=== PATIENT | female | born 1995 | race Caucasian/White ===

== ENCOUNTER → 2016-10-18 | Outpatient (CLI) | payer BC, OTHER ==
[~2016-10-18] MED LIST: PRENTAB44
[2016-10-18 17:31] LABS: URINE APPEARANCE CLOUDY (CLEAR); URINE BILIRUBIN NEG (NEG); URINE COLOR YELLOW; URINE EPITHELIAL CELL AUTO >30 /lpf (0-5); URINE NITRITE NEG (NEG); URINE SPECIFIC GRAVITY 1.022 (1.000-1.030); UROBILINOGEN NEG (NEG)
[2016-10-18 17:37] LABS: MANUAL MICROSCOPIC REQUIRED? NO; REVIEW REQ? NO
== END | disposition home or self-care (01) ==
LOC: C.LABSPEC 15:23
PROVIDERS: ATTEND Obstetrics & Gynecology
DX: O99.330 Smoking (tobacco) complicating pregnancy, unspecified trimester (principal); Z3A.00 Weeks of gestation of pregnancy not specified

== ENCOUNTER → 2016-10-21 | Outpatient (CLI) | payer BC, OTHER ==
[2016-10-21 10:41] LABS: BASO % 0.3 %; BASO ABS # 0.02 K/uL (0-0.2); COMPLETE YES; EOS % 2.3 %; HEMATOCRIT 37.9 % (37-47); IG% 0.3 %; LYMPH % 20.4 %; LYMPH ABS # 1.57 K/uL (1.2-3.4); MEAN CELL VOLUME 85.9 fL (80-100); MEAN CORPUSCULAR HGB CONC 33.8 g/dl (32-36); MEAN PLATELET VOLUME 10.8 fL (7.4-10.4); MONO % 11.2 %; NEUT % 65.5 %; PLATELET COUNT 264 K/uL (130-400); RED BLOOD COUNT 4.41 M/uL (4.2-5.4); WHITE BLOOD COUNT 7.69 K/uL (4.8-10.8)
[2016-10-25 07:06] LABS: CHLAMYDIA TRACH RNA*** NOT DETECTED (NOT DETECTED); GC (NEIS GONORRHOEAE)RNA** NOT DETECTED (NOT DETECTED)
== END | disposition home or self-care (01) ==
LOC: C.LAB1850 09:51
PROVIDERS: ATTEND Obstetrics & Gynecology
DX: Z33.1 Pregnant state, incidental (principal)

== ENCOUNTER → 2016-10-21 | Outpatient (CLI) | payer BC, OTHER | END | disposition home or self-care (01) | LOC: C.PAPS 14:12 | PROVIDERS: ATTEND Obstetrics & Gynecology | DX: Z12.4 Encounter for screening for malignant neoplasm of cervix (principal) ==

== ENCOUNTER → 2016-12-25 | Outpatient (CLI) | payer BC, OTHER ==
[2016-12-25 19:00] LABS: GTGD 50 Grams
== END | disposition home or self-care (01) ==
LOC: C.LAB1850 15:24
PROVIDERS: ATTEND Obstetrics & Gynecology
DX: Z34.02 Encounter for supervision of normal first pregnancy, second trimester (principal)

== ENCOUNTER 2016-12-29 19:10 | Emergency (ER) | payer BC, OTHER ==
[~2016-12-29] VITALS: Ht 162.6 cm; Wt 84.5 kg
[2016-12-29 19:23] VITALS: TEMP 36.9; Ht 162.6 cm; Wt 84.5 kg
[2016-12-29] MEDS ORDERED: SODIUM CHLORIDE 0.9% 1000ML 1,000 ML IV STA (19:54)
[2016-12-29 20:17] LABS: BASO % 0.1 %; BASO ABS # 0.01 K/uL (0-0.2); COMPLETE YES; EOS % 1.4 %; HEMATOCRIT 32.3 % (37-47); IG% 0.2 %; LYMPH % 15.3 %; LYMPH ABS # 1.89 K/uL (1.2-3.4); MEAN CELL VOLUME 85.4 fL (80-100); MEAN CORPUSCULAR HEMOGLOBIN 28.8 pg (25-34); MEAN CORPUSCULAR HGB CONC 33.7 g/dl (32-36); MEAN PLATELET VOLUME 10.5 fL (7.4-10.4); MONO % 8.7 %; NEUT % 74.3 %; PLATELET COUNT 236 K/uL (130-400); RED BLOOD COUNT 3.78 M/uL (4.2-5.4); WHITE BLOOD COUNT 12.33 K/uL (4.8-10.8)
[2016-12-29] MEDS ORDERED: PRENTAB44 (20:21)
[2016-12-29 20:40] LABS: BUN/CREATININE RATIO 9.5 (10-20); CALCIUM 9.7 mg/dl (8.5-10.1); CREATININE 0.64 mg/dl (0.60-1.20); POTASSIUM 3.3 mmol/L (3.5-5.1)
--- NOTE | 2016-12-29 21:20 | DIAGNOSTIC IMAGING REPORT ---
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 Estimated gestational age is 16.5 weeks. Maternal cervix is closed. Placenta is anterior. heart rate is confirmed at 142 bpm. IMPRESSION: Single, viable intrauterine estimated at 16.5 weeks gestational age. A heartbeat is confirmed The above report was generated using voice recognition software. It may contain grammatical, syntax or spelling errors. Electronically signed by: Markos Matthews M.D. 12/29/2016 9:19 PM Dictated Date/Time: 12/29/2016 9:18 PM
--- NOTE | 2016-12-29 21:51 | EMERGENCY ROOM VISIT NOTE ---
History Report prepared by Pietroibe: Jimena Reddy Under the Supervision of: Dr. Ahmet Ortega D.O. First contact with patient: 19:51 Chief Complaint: ABDOMINAL PAIN Stated Complaint: SEVERE CRAMPING- 16WKS Nursing Triage Summary: Patient reports she is 16 weeks and developed abdominal cramping. Denies bleeding. History of Present Illness The patient is a 21 year old female who presents to the Emergency Room with complaints of persistent abdominal pain that started earlier today. She describes her pain as feeling "crampy" in nature and rates it as a 5/10 in severity. She is currently 16 weeks with her second . Her first ended in an . The patient admits she experienced spotting with her previous , but denies any recent spotting or bleeding with this . She currently takes vitamins but no other daily medications. She denies any recent fevers or illnesses. Source of History: patient Onset: earlier today Position: abdomen Symptom Intensity: 5/10 Quality: cramping Timing: other (persistent) Associated Symptoms: No fevers Review of Systems See HPI for pertinent positives & negatives. A total of 10 systems reviewed and were otherwise negative. Past Medical & Surgical Surgical Problems: (1) in first trimester Social History Smoking Status: Never Smoker Alcohol Use: occasionally Drug Use: none Marital Status: single, in relationship Housing Status: lives with family Occupation Status: employed Current/Historical Medications Miscellaneous Medications Vit W/ Ferrous Fumara ( Complete) Allergies Uncoded Allergies: NO KNOWN ALLERGIES (Allergy, Unknown, ., 12/29/16) Physical Exam Vital Signs Date Time Temp Pulse Resp B/P (MAP) Pulse Ox O2 Delivery O2 Flow Rate FiO2 12/29/16 22:03 87 18 117/63 98 12/29/16 19:23 36.9 86 16 133/80 100 Room Air Physical Exam CONSTITUTIONAL/VITAL SIGNS: Reviewed / noted above. GENERAL: Non-toxic in appearance. INTEGUMENTARY: Warm, dry, and [place]. HEAD: Normocephalic. EYES: without scleral icterus or trauma. ENT/OROPHARYNX: clear and moist. LYMPHADENOPATHY/NECK: Is supple without lymphadenopathy or meningismus. RESPIRATORY: Lungs clear and equal. CARDIOVASCULAR: Regular rate and rhythm. GI/ABDOMEN: Soft and nontender. No organomegaly or pulsatile mass. No rebound or guarding. Normal bowel sounds. EXTREMITIES: Warm and well perfused. BACK: No CVA tenderness. NEUROLOGICAL: Intact without focal deficits. PSYCHIATRIC: normal affect. MUSCULOSKELETAL: Normally developed with good muscle tone. 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 Estimated gestational age is 16.5 weeks. Maternal cervix is closed. Placenta is anterior. heart rate is confirmed at 142 bpm. IMPRESSION: Single, viable intrauterine estimated at 16.5 weeks gestational age. A heartbeat is confirmed The above report was generated using voice recognition software. It may contain grammatical, syntax or spelling errors. Electronically signed by: Markos Matthews M.D. 12/29/2016 9:19 PM Laboratory Results 12/29/16 20:05 Red Blood Count 3.78, Mean Corpuscular Volume 85.4, Mean Corpuscular Hemoglobin 28.8, Mean Corpuscular Hemoglobin Concent 33.7, Mean Platelet Volume 10.5, Neutrophils (%) (Auto) 74.3, Lymphocytes (%) (Auto) 15.3, Monocytes (%) (Auto) 8.7, Eosinophils (%) (Auto) 1.4, Basophils (%) (Auto) 0.1, Neutrophils # (Auto) 9.16, Lymphocytes # (Auto) 1.89, Monocytes # (Auto) 1.07, Eosinophils # (Auto) 0.17, Basophils # (Auto) 0.01 12/29/16 20:05 Test 12/29/16 20:05 White Blood Count 12.33 K/uL (4.8-10.8) Red Blood Count 3.78 M/uL (4.2-5.4) Hemoglobin 10.9 g/dL (12.0-16.0) Hematocrit 32.3 % (37-47) Mean Corpuscular Volume 85.4 fL (80-100) Mean Corpuscular Hemoglobin 28.8 pg (25-34) Mean Corpuscular Hemoglobin Concent 33.7 g/dl (32-36) Platelet Count 236 K/uL (130-400) Mean Platelet Volume 10.5 fL (7.4-10.4) Neutrophils (%) (Auto) 74.3 % Lymphocytes (%) (Auto) 15.3 % Monocytes (%) (Auto) 8.7 % Eosinophils (%) (Auto) 1.4 % Basophils (%) (Auto) 0.1 % Neutrophils # (Auto) 9.16 K/uL (1.4-6.5) Lymphocytes # (Auto) 1.89 K/uL (1.2-3.4) Monocytes # (Auto) 1.07 K/uL (0.11-0.59) Eosinophils # (Auto) 0.17 K/uL (0-0.5) Basophils # (Auto) 0.01 K/uL (0-0.2) RDW Standard Deviation 40.2 fL (36.4-46.3) RDW Coefficient of Variation 12.9 % (11.5-14.5) Immature Granulocyte % (Auto) 0.2 % Immature Granulocyte # (Auto) 0.03 K/uL (0.00-0.02) Anion Gap 8.0 mmol/L (3-11) Est Creatinine Clear Calc Drug Dose 143.8 ml/min Estimated GFR () 145.8 Estimated GFR (Non- 125.8 BUN/Creatinine Ratio 9.5 (10-20) Calcium Level 9.7 mg/dl (8.5-10.1) Human Chorionic Gonadotropin, Quant 14247 mIU/mL Laboratory results as stated above per my review. Medications Administered Medications (Trade) Dose Ordered Sig/Hua Route Start Time Stop Time Status Last Admin Dose Admin Sodium Chloride 1,000 ml @ 999 mls/hr Q1H1M STAT IV 12/29/16 19:54 12/29/16 20:54 DC 12/29/16 19:54 999 MLS/HR ED Course 1950: Previous medical records were reviewed. The patient was evaluated in room C12. A complete history and physical examination was performed. 1953: NSS 1000 ml @ 999 mls/hr IV. 2199: I reevaluated the patient. She is feeling much better. I discussed her results and discharge instructions and she verbalized complete understanding and agreement. Medical Decision Etiologies such as ectopic , dysfunction uterine bleeding, bleeding dyscrasia, trauma, infection, as well as others were entertained. This is a 21-year-old female who presents to the ED with a chief complaint of abdominal cramps. The patient denies any spotting. She has had the cramps throughout the day today. She reports it's in the lower abdomen. She is a with history of an 2 years ago. The patient denies any other symptoms. Her physical exam was unremarkable. CBC and PRP are normal. Ultrasound reveals a single viable intrauterine at 16.5 weeks. The patient was told the results of tests. She is felt to be stable for discharge. Medication Reconcilliation Current Medication List: was personally reviewed by me Impression Primary Impression: Abdominal cramps Additional Impression: related condition in second trimester Scribe Attestation The scribe's documentation has been prepared under my direction and personally reviewed by me in its entirety. I confirm that the note above accurately reflects all work, treatment, procedures, and medical decision making performed by me. Departure Information Dispostion Home / Self-Care Referrals No Doctor, Assigned (PCP) Patient Instructions My [facility] Additional Instructions Follow-up with your TAX COMPLIANCE OFFICER. Call tomorrow for appointment. Return for any concerns or worsening. Problem Qualifiers
[2016-12-29 22:03] VITALS: BP 117/63; PULSE 87; O2SAT 98
== END 2016-12-29 22:00 | disposition home or self-care (01) ==
LOC: C.EDB 19:11 → C.EDC 22:00
DX: O26.92 Pregnancy related conditions, unspecified, second trimester (principal); R10.9 Unspecified abdominal pain

== ENCOUNTER → 2017-03-27 | Outpatient (CLI) | payer OTHER ==
[2017-03-27 13:21] LABS: GTGD 50 Grams
[2017-03-27 14:19] LABS: URINE APPEARANCE CLEAR (CLEAR); URINE BILIRUBIN NEG (NEG); URINE COLOR YELLOW; URINE EPITHELIAL CELL AUTO >30 /lpf (0-5); URINE NITRITE NEG (NEG); URINE SPECIFIC GRAVITY 1.008 (1.000-1.030); UROBILINOGEN NEG (NEG)
[2017-03-27 14:25] LABS: MANUAL MICROSCOPIC REQUIRED? NO; REVIEW REQ? NO
== END | disposition home or self-care (01) ==
LOC: C.LAB1850 12:06
PROVIDERS: ATTEND Obstetrics & Gynecology
DX: Z34.03 Encounter for supervision of normal first pregnancy, third trimester (principal)

== ENCOUNTER 2017-05-01 08:49 | Emergency (ER) | payer BC, OTHER ==
[~2017-05-01] VITALS: Ht 162.6 cm; Wt 91.9 kg
[2017-05-01 08:53] VITALS: TEMP 36.3; Ht 162.6 cm; Wt 91.9 kg
[2017-05-01] MEDS ORDERED: FAMO20TA9 PO (09:22)
[2017-05-01] MEDS ORDERED: AMX875 PO (09:22)
[2017-05-01 10:37] LABS: INFLUENZA B ANTIGEN Neg for Influ B (NEG)
--- NOTE | 2017-05-01 10:54 | EMERGENCY ROOM VISIT NOTE ---
ED Visit Note First contact with patient: 09:07 CHIEF COMPLAINT: Head congestion and dry cough HPI: This 21-year-old female who is 34 weeks presents the ER with chief complaint of head congestion for the past 5 days. She also admits to body aches which started Friday. She also admits to bilateral ear pain. She started with a dry cough 2 days ago. She denies any productive cough. The patient denies any fever. The patient was seen at urgent care on Friday and was placed on amoxicillin 875 mg twice daily. The patient states that her symptoms are unchanged since starting the amoxicillin. The patient does admit to having reflux with her . The patient denies any history of asthma. REVIEW OF SYSTEMS: 6 system review was performed and was negative unless stated otherwise in history of present illness. PMH: The patient is healthy; there is no significant medical or surgical history. SOCIAL HISTORY: Patient admits to tobacco use but denies any alcohol use. PHYSICAL EXAM: Vital Signs were reviewed: Reviewed Nurse's notes and agree. Oxygen saturation is 98 % on room air which is normal . GENERAL: 21-year-old female appears in no acute distress. MENTAL STATUS: Alert, oriented, coherent. EARS: Canals clear. TMs good light reflex, no erythema or fluid level noted. NOSE: Nasal mucosa with moderate erythema engorgement. PHARYNX: No erythema, no edema noted. No exudate noted. Airway is adequate. NECK: Supple, non-tender. No lymphadenopathy noted. LUNGS: Clear to auscultation without wheezes rales or rhonchi. CARDIAC: Regular rate and rhythm without murmur. SKIN: No rashes noted. EMERGENCY COURSE: The patient was evaluated. Rapid influenza was negative for influenza A and influenza B. DIAGNOSIS: Acute sinusitis DISCHARGE INSTRUCTIONS: Discontinue the amoxicillin. Take Augmentin as prescribed. You may also take Robitussin for cough if this is approved by your SEPTIC TANK SERVICE TECHNICIAN. Tylenol as needed for fever. Current/Historical Medications Scheduled Amoxicillin (Amoxicillin), 875 MG PO Q12 Famotidine (Pepcid), 20 MG PO BID Miscellaneous Medications Vit W/ Ferrous Fumara ( Complete) Allergies Coded Allergies: No Known Allergies (Unverified , 05/01/17) Vital Signs Date Time Temp Pulse Resp B/P (MAP) Pulse Ox O2 Delivery O2 Flow Rate FiO2 05/01/17 08:55 100 Room Air 05/01/17 08:53 36.3 85 20 132/86 98 Room Air Laboratory Results Test 05/01/17 09:45 Influenza Type A Antigen Neg for Influ A (NEG) Influenza Type B Antigen Neg for Influ B (NEG) Departure Information Referrals No Doctor, Assigned (PCP) Patient Instructions [facility]
[2017-05-01] MEDS ORDERED: AMOX875T PO (10:56)
[2017-05-01 11:02] VITALS: BP 147/94; PULSE 77; O2SAT 98
== END 2017-05-01 11:00 | disposition home or self-care (01) ==
LOC: C.EDB 08:50 → C.EDA 11:00
DX: J01.90 Acute sinusitis, unspecified (principal); Z3A.34 34 weeks gestation of pregnancy; F17.200 Nicotine dependence, unspecified, uncomplicated

== ENCOUNTER → 2017-05-15 | Outpatient (CLI) | payer BC, OTHER ==
[~2017-05-15] MED LIST changes: +AMX875 PO; +FAMO20TA9 PO
== END | disposition home or self-care (01) ==
LOC: C.LABSPEC 13:22
PROVIDERS: ATTEND Obstetrics & Gynecology
DX: Z34.02 Encounter for supervision of normal first pregnancy, second trimester (principal)

== ENCOUNTER 2017-06-05 12:15 | Inpatient (IN) | payer BC, OTHER ==
[~2017-06-05] VITALS: Ht 162.6 cm; Wt 97.8 kg
[2017-06-05 13:28] LABS: BASO % 0.1 %; BASO ABS # 0.01 K/uL (0-0.2); HEMATOCRIT 30.1 % (37-47); IG# 0.03 K/uL (0.00-0.02); LYMPH ABS # 1.23 K/uL (1.2-3.4); MEAN CELL VOLUME 80.3 fL (80-100); MEAN CORPUSCULAR HEMOGLOBIN 26.7 pg (25-34); MEAN PLATELET VOLUME 12.1 fL (7.4-10.4); MONO % 7.1 %; MONO ABS # 0.73 K/uL (0.11-0.59); NEUT % 78.5 %; NEUT ABS # 8.02 K/uL (1.4-6.5); NUCLEATED RED BLOOD CELL ABS 0.02 K/uL (0-0); PLATELET COUNT 160 K/uL (130-400); RED CELL DISTRIBUTION WIDTH CV 13.9 % (11.5-14.5); RED CELL DISTRIBUTION WIDTH SD 40.2 fL (36.4-46.3); WHITE BLOOD COUNT 10.22 K/uL (4.8-10.8)
[2017-06-05] MEDS ORDERED: LACTATED RINGER'S 1000ML 500 ML IV PRN (13:32)
[2017-06-05] MEDS ORDERED: LACTATED RINGER'S 1000ML 1,000 ML IV PRN (13:32)
[2017-06-05 13:37] LABS: INR 0.9 (0.9-1.1)
[2017-06-05] MEDS ORDERED: OXYTOCIN 30 UNITS/500ML NSS IV PRN (13:45)
[2017-06-05 13:46] LABS: ALBUMIN 2.4 gm/dl (3.4-5.0); ALT/SGPT 14 U/L (12-78); CREATININE 0.74 mg/dl (0.60-1.20); URIC ACID 5.5 mg/dl (2.6-7.2)
[2017-06-05 13:50] LABS: ALKALINE PHOSPHATASE 147 U/L (45-117); AST/SGOT 14 U/L (15-37); TOTAL PROTEIN 6.1 gm/dl (6.4-8.2)
[2017-06-05 14:01] LABS: MEAN CORPUSCULAR HGB CONC 33.2 g/dl (32-36)
[2017-06-05] MEDS ORDERED: DOCO1CAP10 (14:01)
[2017-06-05 14:50] VITALS: BMI 37.0
[2017-06-05] MEDS: LACTATED RINGER'S 1000ML 1,000 ML IV SCH ×2 (15:06→23:13)
[2017-06-05 15:14] VITALS: Ht 162.6 cm; Wt 97.8 kg
[2017-06-05] MEDS ORDERED: FAMOTIDINE 20 MG TAB PO ONE (16:14)
[2017-06-05] MEDS ORDERED: CALCIUM CARBONATE 500 MG CHEWABLE PO PRN (23:15)
[2017-06-05] MEDS ORDERED: NURSING VERBAL MED ORDER ONE (23:15)
[2017-06-06] MEDS ORDERED: BUTORPHANOL TARTRATE 1 MG/ML VIAL IV PRN (02:30)
[2017-06-06] MEDS ORDERED: BUPIVACAINE 0.25% 30 ML VIAL ONE (03:48)
[2017-06-06] MEDS ORDERED: FENTANYL CITRATE INJ 50 MCG/1 ML 2 ML VIAL ONE (03:48)
[2017-06-06] MEDS ORDERED: EpHEDrine SULFATE INJ 50 MG/ML AMP ONE (03:48)
[2017-06-06] MEDS ORDERED: FENTANYL 2MCG/ML ROPIV 1.25MG/ML 100ML BAG EPI ONE (03:49)
[2017-06-06] MEDS ORDERED: NALOXONE HCL INJ 1 MG in SODIUM CHLORIDE 0.9% 1000ML 1,000 ML IV PRN (06:31)
[2017-06-06] MEDS ORDERED: LACTATED RINGER'S 1000ML 500 ML IV PRN (06:31)
[2017-06-06] MEDS ORDERED: DiphenhydrAMINE HCL 50 MG/ML VIAL IV PRN (06:45)
[2017-06-06] MEDS ORDERED: FENTANYL 2MCG/ML ROPIV 1.25MG/ML 100ML BAG EPI PRN (06:45)
[2017-06-06] MEDS ORDERED: PROMETHAZINE HCL INJ 6.25 MG in SODIUM CHLORIDE 0.9% 50ML 50 ML IV PRN (06:45)
[2017-06-06] MEDS ORDERED: ONDANSETRON INJ 2 MG/ML 2 ML VIAL IV PRN (06:45)
[2017-06-06] MEDS ORDERED: EpHEDrine SULFATE INJ 50 MG/ML AMP IV PRN (06:45)
[2017-06-06] MEDS ORDERED: NALOXONE HCL INJ 0.4 MG/1 ML VIAL/CARP IV PRN (06:45)
[2017-06-06] MEDS ORDERED: NALBUPHINE HCL INJ 10 MG/ML AMP IV PRN (06:45)
[2017-06-06] MEDS ORDERED: FAMOTIDINE 20 MG TAB PO SCH (08:00)
[2017-06-06] MEDS ORDERED: HYDROCORTISONE ACETATE 25 MG SUPP PR PRN (09:00)
[2017-06-06] MEDS ORDERED: OXYTOCIN 30 UNITS/500ML NSS IV PRN (09:00)
[2017-06-06] MEDS ORDERED: ACETAMINOPHEN/CODEINE 300/30MG TAB PO PRN (09:00)
[2017-06-06] MEDS ORDERED: FAMOTIDINE 20 MG TAB PO PRN (09:00)
[2017-06-06] MEDS ORDERED: ACETAMINOPHEN 325 MG TAB PO PRN (09:00)
[2017-06-06] MEDS ORDERED: LANOLIN OINT EXT PRN (09:00)
[2017-06-06] MEDS ORDERED: BENZOCAINE 20% AER SPR 82.5 GM CAN EXT PRN (09:00)
[2017-06-06] MEDS ORDERED: DIPHTHERIA/TETANUS/PERTUSSIS 0.5 ML SYR/VIAL IM. ONE (09:00)
[2017-06-06] MEDS ORDERED: SUPERCREAM 0.870 % 15GM JAR EXT PRN (09:00)
--- NOTE | 2017-06-06 09:43 | Medical Student: [facility] ---
Medical Student Delivery Note Viable female infant delivered via normal spontaneous vaginal delivery over midline second degree perineum laceration, initial apgars 8 + 9, with epidural anesthesia. Nuchal cord x1 clamped and cut over perineum. Cord blood collected. Spontaneous delivery of placenta with 3-vessel cord. Estimated blood loss 300mL. Patient and infant are stable and doing well. Labor progression 21yo 39 (+3) DANIELLA 06/10 by US presented to hospital on 06/05 for labor induction. Huitron catheter ballooning was utilized for dilation in addition to IV Pitocin. Patient remained in hospital overnight. Anesthesia consulted for placement of epidural. Active pushing for approximately 30min. Medical provider took over care at this point. over midline second degree perineal laceration to viable female .Cord blood collected. Spontaneous delivery of placenta.Laceration repaired with 4-0 monochrome sutures. Estimated blood loss of 300mL
--- NOTE | 2017-06-06 09:49 | DELIVERY SUMMARY ---
DATE OF OPERATION: 06/06/2017 The patient is a 21-year-old 2, para 0-0-1-0 white female EDC of 06/10/2017 who presented for her usual visit at the office on 06/05/2017. Blood pressure was noted to be 140/100. Her prior visit, her blood pressure was 130/90 and therefore, she met criteria for gestational hypertension. Proteinuria was negative. She was sent to labor and delivery for further evaluation and potential induction of labor. Her PIH labs were within normal limits with a platelet count of 160,000. She received a cervical balloon and then Pitocin augmentation of labor. She received adequate epidural analgesia and progressed to full dilation. She pushed effectively for approximately 20 minutes over an intact perineum for delivery of a viable female infant. There was a tight nuchal cord on delivery. This was clamped and cut prior delivering the rest of the infant, which was done easily. was placed on the mother's abdomen for further attention and there was spontaneous crying and the infant was moving all 4 limbs. The placenta was expressed intact with a 3-vessel cord. A second degree perineal laceration was repaired with 3-0 chromic in the usual fashion. Estimated blood loss was 300 mL. Mother and infant were doing well after delivery. I attest to the content of the Intraoperative Record and any orders documented therein. Any exceptions are noted below. SEGUNDOD
--- NOTE | 2017-06-06 10:05 | Discharge Instructions ---
Discharge Instructions Date of Service Jun 06, 2017. Admission Reason for Admission: R/O Labor Discharge Discharge Diagnosis / Problem: Vaginal Delivery Discharge Goals Goal(s): Routine recovery after delivery Medications Continue Dispensed Medications: supercream, dermaplast, tucks, lansinoh Activity Recommendations Activity Limitations: per Instructions/Follow-up section . Instructions / Follow-Up Instructions / Follow-Up ACTIVITY RECOMMENDATIONS: * Gradual return to full activity over the next 2-3 weeks. * No lifting - nothing heavier than baby over the next 2-3 weeks. * Do not engage in vigorous exercise, sexual activity or sports until cleared by your physician. * Do not drive or operate any motorized equipment until cleared by your physician. * You may shower/bathe daily. MEDICATIONS: For discomfort or pain, you may use Acetaminophen (Tylenol), Ibuprofen (Advil), or Naproxen (Aleve) following the package directions. For constipation you may use Colace following the package directions. BREAST CARE: If you are not breast feeding: * Wear a supportive bra 24 hours a day for one to two weeks. * Avoid stimulating your breasts and nipples as much as possible during the first few weeks after delivery. * When taking a shower, have the warm water hit your back, not breasts. * When your breasts feel full, apply ice packs. Usually three to four times a day helps ease the discomfort. * Take a mild pain medication (Tylenol / Motrin) when you are uncomfortable. If breast feeding: * Use breast milk to lubricate nipples. Lansinoh cream may be used for sore nipples. You do not need to remove cream prior to breast feeding. If using a different brand of cream, check the label for directions regarding removal of cream prior to nursing. * Wear a supportive bra. * If having problems with breasts or breast feeding, call a exchange underwriting consultant or your health care provider. EPISIOTOMY CARE: After delivery, if you have an episiotomy (stitches), the following steps will ease discomfort and aid healing. * For the first 24 hours after delivery, place ice packs next to your episiotomy to help reduce swelling. * After the first 24 hour-period, sitz baths, either portable or in the tub, are suggested. A shower with a shower arm sprayed over the episiotomy may be comforting. * Cesilia care should be done after each voiding and bowel movement. Squirt warm water from a plastic bottle over the perineum (region of the body between the anus and urinary opening) and pat dry. * Use Dermoplast to ease discomfort. Shake container. Temperance directly over the episiotomy. Place a Tucks on a clean sanitary pad next to your episiotomy. SPECIAL CARE INSTRUCTIONS: When you are discharged from the hospital, it is important for you to follow the instructions listed below: * During the first week at home, you should be able to care for yourself and your baby. In addition, the usual light household activities are encouraged. * Limit your activities to the way you feel. Do not try to clean the house or move furniture. Be sensible. * If you actively engage in sports and have done so up until the time of your delivery, you may resume these activities as soon as you feel able. This may take up to one month or even longer. Use good judgment. * Continue to take your vitamins for at least six weeks after the of your baby. * Your diet need not be limited unless you were on a special diet before your delivery. Breast-feeding mothers need around 2500 calories per day and at least 64-80 ounces of fluid per day (8 to 10 glasses). * You should eat foods from the four major food groups. Crash diets or fad diets are to be avoided. Eating lean meats, fresh fruits and vegetables, low-fat dairy products, high fiber foods and a regular exercise program, will help you get back to your pre- weight without putting your health at risk. * Constipation is sometimes a problem after delivery. Take a mild laxative as needed. If breast feeding, Milk of Magnesia is acceptable to use. You may use a suppository or Fleets enema if no episiotomy. * A daily shower or tub bath is suggested. Be sure to thoroughly and gently dry the perineum. * A bloody vaginal discharge will usually continue until around four weeks post . A small amount of bleeding may continue for as long as six weeks. Vaginal discharge changes from the bright red bleeding after delivery to pink then brownish and finally yellowish-pink before becoming white and disappearing. * Bleeding may increase with activity. Your first period may come in 4-8 weeks. If you are breast feeding, your period may be delayed even longer. * [place] (sex) can begin whenever both you and your partner feel comfortable and do not have any form of genital infection. It is recommended that you wait at least six weeks for internal and external healing to occur. If you have questions, please talk to your health care practitioner. A condom should be used to prevent infection and . * Foreplay, gentle intercourse and lubrication is very important the first several times to prevent pain. A water-based lubricant such as K-Y jelly or Astroglide may be used. * If you have RH negative blood and your baby is RH positive, you will receive RHOGAM by injection prior to discharge. The nurse will give you a card to keep with you that has the date and place that you received RHOGAM after delivery. * During your care, you had a Rubella screen done to check for the presence of rubella antibodies in your blood. If your test was negative, you will receive a Rubella vaccine prior to discharge. This vaccine may cause a fever, soreness at the injection site and flu-like symptoms. If these symptoms persist, notify your health care practitioner. is not advised for one month after a Rubella vaccine. * Verbalizes understanding of car seat law as reviewed with patient nursing. * Car Seat hand-out given and reviewed with patient by nursing. * Shaken baby information reviewed with patient by nursing. Call you doctor if: * Heavy bleeding (saturating several pads an hour) or passing clots the size of your fist. * A fever >101 degrees F (38.3 degrees C) on two occasions four hours apart and /or chills. * Unusual pain in the pelvic or vaginal areas. * "Baby Blues" lasting longer than two weeks. If you have any questions or concerns, call your health care practitioner at . FOLLOW UP VISIT: * Please call the office at to schedule a 6 week examination. It is important you keep this appointment. It is important for you to make arrangements for either yearly or twice yearly check-ups thereafter. Current Hospital Diet Patient's current hospital diet: Regular OB Diet Discharge Diet Recommended Diet: Regular Diet Pending Studies Studies pending at discharge: no Medical Emergencies . Who to Call and When: Medical Emergencies: If at any time you feel your situation is an emergency, please call [phone] immediately. . Non-Emergent Contact Non-Emergency issues call your: Primary Care Provider . . "Provider Documentation" section prepared by Sarah Pike. . VTE Core Measure Inpt VTE Proph given/why not?: Treatment not indicated
--- NOTE | 2017-06-06 10:43 | Anesthesia Procedure Note ---
Anesthesia Epidural Removal Nt Date & Time Jun 06, 2017 at 10:43 Vital Signs Pain Intensity: 0.0 Notes Mental Status: alert / awake / arousable, participated in evaluation Nausea / Vomiting: adequately controlled Pain: adequately controlled Airway Patency, RR, SpO2: stable & adequate BP & HR: stable & adequate Hydration State: stable & adequate Neuraxial Anesthesia: was administered, sensory block is resolving Anesthetic Complications: no major complications apparent, pt satisfied with anesthetic care Epidural: removed without complications, with tip intact
[2017-06-06] MEDS: IBUPROFEN 600 MG TAB PO PRN ×2 (12:16→16:14)
[2017-06-06 12:35] VITALS: BP 155/106; PULSE 81; TEMP 37.1
[2017-06-06 14:15] VITALS: BP 155/96
[2017-06-06 15:30] VITALS: BP 145/98; PULSE 79; TEMP 36.8
[2017-06-06] MEDS: ACETAMINOPHEN/CODEINE 300/30MG TAB PO PRN (18:29)
[2017-06-06 19:25] VITALS: BP 155/95; PULSE 82; TEMP 36.6
[2017-06-06] MEDS: DOCUSATE SODIUM 100 MG CAP PO SCH (20:20)
[2017-06-06 20:45] VITALS: BP 155/105
[2017-06-06 23:30] VITALS: BP 136/88; PULSE 87; TEMP 36.6; O2SAT 100
[2017-06-07] VITALS (11 sets, daily range): BP systolic 145–163; BP diastolic 92–110; PULSE 69–115; TEMP 36.6–37; O2SAT 99–100
[2017-06-07] MEDS: ACETAMINOPHEN/CODEINE 300/30MG TAB PO PRN (01:41)
--- NOTE | 2017-06-07 06:20 | Progress Note ---
Subjective Jun 07, 2017. Subjective conversation w/ patient Ambulation: ambulating normally Voiding: no voiding problems Diet Tolerance: Regular Diet Lochia: Moderate Feeding Type: Bottle Feeding Pain: 3/10, improves with analgesia Review of Systems Constitutional: No fever, No chills Respiratory: No shortness of breath Cardiac: No chest pain Abdomen: No nausea, No vomiting Objective Vital Signs Date Time Temp Pulse Resp B/P (MAP) Pulse Ox O2 Delivery O2 Flow Rate FiO2 06/07/17 03:10 36.9 89 18 145/92 (109) 99 Room Air 06/06/17 23:30 36.6 87 18 136/88 (104) 100 Room Air 06/06/17 23:30 100 Room Air 06/06/17 20:45 155/105 (122) 06/06/17 19:25 Room Air 06/06/17 19:25 36.6 82 18 155/95 (115) Room Air 06/06/17 15:30 36.8 79 20 145/98 (114) Room Air 06/06/17 15:30 Room Air 06/06/17 14:15 155/96 (115) 06/06/17 12:35 37.1 81 20 155/106 (122) Physical Exam General Appearance: WELL-APPEARING, WD/WN, NO APPARENT DISTRESS Respiratory/Chest: lungs clear, normal breath sounds Cardiovascular: regular rate, rhythm Abdomen: soft Fundus: Firm, Non-Tender, Relation to Umbilicus (at u) Extremities: no calf tenderness Laboratory Results Last 24 Hours Test 06/07/17 04:44 Medications Current Inpatient Medications Medications (Trade) Dose Ordered Sig/Hua Route Start Time Stop Time Status Last Admin Dose Admin Oxytocin (Pitocin IV) 30 units UD PRN IV 06/06/17 09:00 07/06/17 08:59 Benzocaine (Dermoplast Aero Spr) 1 appln PRN PRN EXT 06/06/17 09:00 07/06/17 08:59 06/06/17 15:34 82.5 APPLN Cocaine HCl (Supercream 0.870% Cr) BID PRN EXT 06/06/17 09:00 06/20/17 08:59 Hydrocortisone Acetate (Anusol Hc Supp) 25 mg BID PRN CA 06/06/17 09:00 07/06/17 08:59 Lanolin (Lanolin Oint) PRN PRN EXT 06/06/17 09:00 07/06/17 08:59 Prenat Multivit/ Morgan/Iron/Folic Ac ( Vitamin Tab) 1 tab DAILY PO 06/07/17 08:00 07/07/17 07:59 Ibuprofen (Motrin Tab) 600 mg Q4H PRN PO 06/06/17 09:00 07/06/17 08:59 06/06/17 16:14 600 MG Acetaminophen (Tylenol Tab) 650 mg Q6H PRN PO 06/06/17 09:00 07/06/17 08:59 Acetaminophen/ Codeine Phosphate (Tylenol w/ Codeine #3 Tab) 1 tab Q4H PRN PO 06/06/17 09:00 07/06/17 08:59 06/07/17 01:41 1 TAB Acetaminophen/ Codeine Phosphate (Tylenol w/ Codeine #3 Tab) 2 tab Q4H PRN PO 06/06/17 09:00 07/06/17 08:59 Bisacodyl (Dulcolax Tab) 5 mg 20 PO 06/07/17 20:00 06/07/17 20:01 Bisacodyl (Dulcolax Supp) 10 mg DAILY PRN CA 06/08/17 07:00 Docusate Sodium (coLACE CAP) 100 mg BID PO 06/06/17 20:00 07/06/17 19:59 06/06/17 20:20 100 MG Famotidine (Pepcid Tab) 10 mg DAILY PRN PO 06/06/17 09:00 07/06/17 08:59 06/07/17 00:10 10 MG Assessment and Plan Problem List Medical Problems: (1) Abdominal cramps Status: Acute (2) Acute sinusitis Status: Acute (3) related condition in second trimester Status: Acute Post- Day#: 1 Continue Routine Care: Resident Physician Supervision Note: I was present with Dr. Pike during the history and exam. I discussed the case with the resident and agree with the findings and plan as documented in the note. Any exceptions or clarifications are listed here: [None] Documented By: Lissett Jennings 21 year old s/p vaginal delivery w/induction due to new onset diagnosis of gestational hypertension - pt doing well clinically - A-, Rubella immune, GBS -ve - baby A+, rhogam shot needed prior to discharge - vitals reviewed - BP elevated at 145/92, remains asymptomatic, continue to monitor - continue to encourage ambulation and analgesia prn - Hgb 10 on arrival, will reassess level when labs available today Resident Tracking Resident Involvement: Resident Care Provided Care Provided: OB Delivery
[2017-06-07] MEDS: DOCUSATE SODIUM 100 MG CAP PO SCH ×2 (07:50→19:28)
[2017-06-07] MEDS: PRENATAL VITAMIN TAB PO SCH (07:50)
[2017-06-07 08:08] LABS: HEMATOCRIT 29.3 % (37-47); HEMOGLOBIN 9.6 g/dL (12.0-16.0)
[2017-06-07] MEDS ORDERED: NIFEdipine 10 MG CAP PO STA (08:41)
--- NOTE | 2017-06-07 08:48 | Progress Note ---
Progress Note Date of Service Jun 07, 2017. Progress Note Elevated BPs - 160s/100s. For continued gestational hypertension, will treat with nifedipine - start with 10mg, recheck BP 15 minutes. If no improvement, give 20mg. Recheck BP, if no improvement, give second dose 20mg. If still no improvement, will switch to labetalol.
[2017-06-07] MEDS: IBUPROFEN 600 MG TAB PO PRN ×3 (10:06→22:39)
[2017-06-07] MEDS ORDERED: BISACODYL 5 MG TABEC PO SCH (20:00)
[2017-06-07] MEDS ORDERED: NIFEdipine 30 MG CR TAB PO STA (23:51)
[2017-06-08] MEDS: IBUPROFEN 600 MG TAB PO PRN ×3 (03:06→11:55)
[2017-06-08 03:15] VITALS: BP 152/103
[2017-06-08] MEDS ORDERED: BISACODYL 10 MG SUPP PR PRN (07:00)
[2017-06-08] MEDS: PRENATAL VITAMIN TAB PO SCH (07:42)
[2017-06-08] MEDS: DOCUSATE SODIUM 100 MG CAP PO SCH (07:42)
[2017-06-08 08:00] VITALS: BP 147/99; PULSE 82; TEMP 36.7
[2017-06-08] MEDS ORDERED: NIFE30TA83 PO (08:07)
[2017-06-08] MEDS ORDERED: MISC-836 (08:07)
--- NOTE | 2017-06-08 09:43 | OB/GYN Progress Note ---
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 Subjective conversation w/ patient, physical exam Ambulation: ambulating normally Voiding: no voiding problems Passing Gas: Yes Diet Tolerance: Regular Diet Lochia: Moderate Feeding Type: Breast Feeding Pain: controlled Review of Systems Constitutional: No problem reported Respiratory: No problem reported Cardiac: No problem reported Breast: No problem reported Abdomen: No problem reported Female : No problem reported Objective Vital Signs Date Time Temp Pulse Resp B/P (MAP) Pulse Ox O2 Delivery O2 Flow Rate FiO2 06/08/17 08:00 36.7 82 20 147/99 (115) 06/08/17 03:15 152/103 (119) 06/07/17 23:30 Room Air 06/07/17 23:30 36.6 86 20 150/103 (119) 100 Room Air 06/07/17 19:20 81 149/94 (112) Room Air 06/07/17 15:15 Room Air 06/07/17 15:15 37.0 74 18 147/99 (115) Room Air 06/07/17 12:20 37.0 75 20 150/99 (116) 06/07/17 10:00 115 24 158/101 (120) Physical Exam General Appearance: WELL-APPEARING, NO APPARENT DISTRESS Respiratory/Chest: no respiratory distress Cardiovascular: regular rate, rhythm Abdomen: non tender, soft Fundus: Firm Extremities: normal inspection Assessment and Plan Post- Day Number: 2 Continue Routine Care: PPD#2, h/o gestational hypertension Doing well. Has had elevated BPs - 160/110s yesterday, rec'd 1 dose 10mg procardia (immediate-release). BPs remained 150s/100s - pt was given 1 dose procardia XL 30mg last night around midnight. Has been 140-150s/90s. Will check another BP this afternoon prior to discharge home. Patient would like to go home today. If BP ok, will discharge home with rx for procardia. Will need to followup in office this week for BP check. Will also need to establish with PCP for further management of BP. Breast pump rx given per pt request.
[2017-06-08 11:55] VITALS: BP 147/98; PULSE 81; TEMP 37.3
[2017-06-08 14:10] VITALS: BP_DIAS 98; PULSE 81; TEMP 37.3
== END 2017-06-08 14:15 | disposition home or self-care (01) | DRG 775 ==
LOC: C.OPB 12:15 → C.LD 12:16 → C.OPB 13:35 → C.LD 13:35 → C.OBG 06-06 12:03
PROVIDERS: ADMIT Obstetrics & Gynecology; ATTEND Obstetrics & Gynecology
PROC: 0KQM3ZZ Repair Perineum Muscle, Percutaneous Approach (ICD-10-PCS; principal; 2017-06-06)
PROC: 10E0XZZ Delivery of Products of Conception, External Approach (ICD-10-PCS; principal; 2017-06-06)
DX: O13.4 Gestational [pregnancy-induced] hypertension without significant proteinuria, complicating childbirth (principal); Z37.9 Outcome of delivery, unspecified; O70.1 Second degree perineal laceration during delivery; Z3A.39 39 weeks gestation of pregnancy

== ENCOUNTER → 2017-06-12 | Outpatient (CLI) | payer BC, OTHER ==
[~2017-06-12] MED LIST changes: -AMX875 PO; +DOCO1CAP10; +MISC-836; +NIFE30TA83 PO; -PRENTAB44; +PRENTAB44 PO
[2017-06-12 13:15] LABS: HEMATOCRIT 31.4 % (37-47); HEMOGLOBIN 10.2 g/dL (12.0-16.0); MEAN CELL VOLUME 81.8 fL (80-100); MEAN CORPUSCULAR HEMOGLOBIN 26.6 pg (25-34); MEAN CORPUSCULAR HGB CONC 32.5 g/dl (32-36); PLATELET COUNT 315 K/uL (130-400); RED CELL DISTRIBUTION WIDTH CV 14.1 % (11.5-14.5); RED CELL DISTRIBUTION WIDTH SD 42.2 fL (36.4-46.3); WHITE BLOOD COUNT 10.37 K/uL (4.8-10.8)
[2017-06-12 14:20] LABS: ALBUMIN 3.1 gm/dl (3.4-5.0); ALKALINE PHOSPHATASE 124 U/L (45-117); ALT/SGPT 31 U/L (12-78); AST/SGOT 21 U/L (15-37); TOTAL PROTEIN 7.3 gm/dl (6.4-8.2)
== END | disposition home or self-care (01) ==
LOC: C.LAB1850 11:50
PROVIDERS: ATTEND Obstetrics & Gynecology
DX: O13.3 Gestational [pregnancy-induced] hypertension without significant proteinuria, third trimester (principal); Z3A.00 Weeks of gestation of pregnancy not specified

== ENCOUNTER 2017-06-14 03:23 | Emergency (ER) | payer BC, OTHER ==
[~2017-06-14] VITALS: Ht 162.6 cm; Wt 86.3 kg
[2017-06-14 03:25] VITALS: Ht 162.6 cm; Wt 86.3 kg
[2017-06-14 04:03] LABS: BASO % 0.1 %; BASO ABS # 0.01 K/uL (0-0.2); EOS % 3.7 %; HEMATOCRIT 34.9 % (37-47); HEMOGLOBIN 11.5 g/dL (12.0-16.0); IG# 0.03 K/uL (0.00-0.02); LYMPH % 20.1 %; LYMPH ABS # 1.64 K/uL (1.2-3.4); MEAN CELL VOLUME 82.1 fL (80-100); MEAN CORPUSCULAR HEMOGLOBIN 27.1 pg (25-34); MEAN PLATELET VOLUME 10.5 fL (7.4-10.4); MONO % 7.1 %; MONO ABS # 0.58 K/uL (0.11-0.59); NEUT % 68.6 %; NEUT ABS # 5.59 K/uL (1.4-6.5); PLATELET COUNT 314 K/uL (130-400); RED CELL DISTRIBUTION WIDTH CV 13.8 % (11.5-14.5); RED CELL DISTRIBUTION WIDTH SD 41.4 fL (36.4-46.3); WHITE BLOOD COUNT 8.15 K/uL (4.8-10.8)
[2017-06-14] MEDS ORDERED: DICYCLOMINE HCL 20 MG TAB PO STA (04:10)
[2017-06-14] MEDS ORDERED: ACETAMINOPHEN 325 MG TAB PO STA (04:10)
--- NOTE | 2017-06-14 04:10 | EMERGENCY ROOM VISIT NOTE ---
History Report prepared by Aryan: Adrianna Lazaro Under the Supervision of: Dr. Radha Carrillo D.O. First contact with patient: 03:31 Chief Complaint: ED VAG BLEEDING Stated Complaint: PAIN,7 DAYS ,HYPERTENSION History of Present Illness The patient is a 21 year old female A1 who presents to the Emergency Room with complaints of worsening vaginal bleeding starting this evening. The patient states that she is 7 days post . She reports that two weeks prior to delivery she started having high blood pressure. She reports that she was induced a week later and had a vaginal delivery. She states that there were no complications with her or the baby. She reports that she was started on a medication for her hypertension and has weekly appointments to check on it. The patient states that she had some light bleeding after the , but notes that it is heavier today. She is unsure if this is related to the abdominal cramping she is having. She reports that she is having it mainly lower, but has some less severe cramping in her upper abdomen. The patient states that she came to the ED tonight because these cramps woke her up out of her sleep. She notes that they started in her back. The patient complains of feeling lightheaded and nauseous in the car on the way here. The patient notes that she has been taking Colace. She notes that she has a history of constipation, but reports that her last bowel movement was yesterday. She states that she is bottle feeding and denies any breast tenderness. She notes that she had a headache last night, but does not tonight. The patient notes that her leg swelling has gone down dramatically. The patient denies any urinary symptoms, passing any clots, fevers , chills, vision changes, chest pain, shortness of breath, and abnormal eating/ drinking. Source of History: patient Onset: this evening Position: other (vaginal) Quality: other (bleeding) Timing: worsening Associated Symptoms: + nausea, + abdominal pain, No fevers, No chills, No headache, No chest pain, No SOB, No urinary symptoms Note: The patient complains of lightheadedness. The patient denies any breast tenderness, passing any clots, vision changes, and abnormal eating/drinking. Review of Systems See HPI for pertinent positives & negatives. A total of 10 systems reviewed and were otherwise negative. Past Medical & Surgical Medical Problems: (1) Elevated blood pressure affecting in third trimester, antepartum (2) Encounter for supervision of normal intrauterine in primigravida, antepartum (3) HTN (hypertension) Surgical Problems: (1) in first trimester Family History Patient reports no known family medical history. Social History Smoking Status: Current Every Day Smoker Alcohol Use: occasionally Drug Use: none Marital Status: in relationship Housing Status: lives with family Occupation Status: employed Current/Historical Medications Scheduled Nifedipine Ext Rel (Procardia Xl Ext Rel), 30 MG PO DAILY Vit W/ Ferrous Fumara ( Complete), 1 TAB PO DAILY Scheduled PRN Famotidine (Pepcid), 10 MG PO DAILY PRN for Heartburn Miscellaneous Medications Docosahexaenoic Acid (Dha) Durable Medical Equipment Misc. Devices (Breast Pump), EA Allergies Coded Allergies: No Known Allergies (Unverified , 06/14/17) Physical Exam Vital Signs Date Time Temp Pulse Resp B/P (MAP) Pulse Ox O2 Delivery O2 Flow Rate FiO2 06/14/17 07:42 73 20 145/98 100 Room Air 06/14/17 06:31 86 18 143/96 97 Room Air 06/14/17 05:15 36.8 67 18 143/96 98 Room Air 06/14/17 03:25 36.5 84 18 148/93 99 Room Air Physical Exam GENERAL: alert, well appearing, well nourished, no distress, non-toxic EYE EXAM: normal conjunctiva, PERRL and EOM's grossly intact OROPHARYNX: no exudate, no erythema, lips, buccal mucosa, and tongue normal and mucous membranes are moist NECK: supple, no nuchal rigidity, no adenopathy, non-tender LUNGS: Clear to auscultation. Normal chest wall mechanics HEART: no murmurs, S1 normal and S2 normal ABDOMEN: abdomen soft, mild generalized abdominal discomfort, worse in the lower abdomen, normo-active bowel sounds, no masses, no rebound or guarding. PELVIC: Blood noted in vaginal vault. No clots or tissue seen. Cervix normal appearance. Minimal uterine tenderness by manual exam. BACK: Back is symmetrical on inspection and there is no deformity, no midline tenderness, no CVA tenderness. SKIN: no rashes and no bruising UPPER EXTREMITIES: upper extremities are grossly normal. LOWER EXTREMITIES: No pitting edema. NEURO EXAM: Normal sensorium, cranial nerves II-XII grossly intact, normal speech, no gross weakness of arms, no gross weakness of legs. Medical Decision & Procedures ER Provider Diagnostic Interpretation: Radiology results have been interpreted by the radiologist and reviewed by me. KUB: The results were interpreted by me. Scattered areas of stool. No SBO. US PELVIS: Enlarged uterus measuring 14.0 x 8.1 x 9.1 cm. Thickened and heterogeneous endometrium measuring up to 3 cm in thickness, clot versus retained products of conception. Ovaries demonstrate Doppler flow. Radiologist: Chelly Bear MD Study ready at 05:22 and initial results transmitted at 05:53. Laboratory Results 06/14/17 03:50 Red Blood Count 4.25, Mean Corpuscular Volume 82.1, Mean Corpuscular Hemoglobin 27.1, Mean Corpuscular Hemoglobin Concent 33.0, Mean Platelet Volume 10.5, Neutrophils (%) (Auto) 68.6, Lymphocytes (%) (Auto) 20.1, Monocytes (%) (Auto) 7.1, Eosinophils (%) (Auto) 3.7, Basophils (%) (Auto) 0.1, Neutrophils # (Auto) 5.59, Lymphocytes # (Auto) 1.64, Monocytes # (Auto) 0.58, Eosinophils # (Auto) 0.30, Basophils # (Auto) 0.01 06/14/17 03:50 Test 06/14/17 03:50 06/14/17 05:40 White Blood Count 8.15 K/uL (4.8-10.8) Red Blood Count 4.25 M/uL (4.2-5.4) Hemoglobin 11.5 g/dL (12.0-16.0) Hematocrit 34.9 % (37-47) Mean Corpuscular Volume 82.1 fL (80-100) Mean Corpuscular Hemoglobin 27.1 pg (25-34) Mean Corpuscular Hemoglobin Concent 33.0 g/dl (32-36) Platelet Count 314 K/uL (130-400) Mean Platelet Volume 10.5 fL (7.4-10.4) Neutrophils (%) (Auto) 68.6 % Lymphocytes (%) (Auto) 20.1 % Monocytes (%) (Auto) 7.1 % Eosinophils (%) (Auto) 3.7 % Basophils (%) (Auto) 0.1 % Neutrophils # (Auto) 5.59 K/uL (1.4-6.5) Lymphocytes # (Auto) 1.64 K/uL (1.2-3.4) Monocytes # (Auto) 0.58 K/uL (0.11-0.59) Eosinophils # (Auto) 0.30 K/uL (0-0.5) Basophils # (Auto) 0.01 K/uL (0-0.2) RDW Standard Deviation 41.4 fL (36.4-46.3) RDW Coefficient of Variation 13.8 % (11.5-14.5) Immature Granulocyte % (Auto) 0.4 % Immature Granulocyte # (Auto) 0.03 K/uL (0.00-0.02) Anion Gap 10.0 mmol/L (3-11) Est Creatinine Clear Calc Drug Dose 100.0 ml/min Estimated GFR () 100.4 Estimated GFR (Non- 86.6 BUN/Creatinine Ratio 20.9 (10-20) Calcium Level 8.6 mg/dl (8.5-10.1) Total Bilirubin 0.3 mg/dl (0.2-1) Aspartate Amino Transf (AST/SGOT) 18 U/L (15-37) Alanine Aminotransferase (ALT/SGPT) 29 U/L (12-78) Alkaline Phosphatase 120 U/L (45-117) Total Protein 7.5 gm/dl (6.4-8.2) Albumin 3.2 gm/dl (3.4-5.0) Globulin 4.3 gm/dl (2.5-4.0) Albumin/Globulin Ratio 0.7 (0.9-2) Urine Color ORANGE Urine Appearance CLOUDY (CLEAR) Urine pH 6.0 (4.5-7.5) Urine Specific [place] 1.016 (1.000-1.030) Urine Protein 2+ (NEG) Urine Glucose (UA) NEG (NEG) Urine Ketones NEG (NEG) Urine Occult Blood 3+ (NEG) Urine Nitrite NEG (NEG) Urine Bilirubin NEG (NEG) Urine Urobilinogen NEG (NEG) Urine Leukocyte Esterase LARGE (NEG) Urine WBC (Auto) >30 /hpf (0-5) Urine RBC (Auto) >30 /hpf (0-4) Urine Hyaline Casts (Auto) 1-5 /lpf (0-5) Urine Epithelial Cells (Auto) 5-10 /lpf (0-5) Urine Bacteria (Auto) NEG (NEG) Urine Yeast (Auto) (NONE PRSENT) Laboratory results per my review. Medications Administered Medications (Trade) Dose Ordered Sig/Hua Route Start Time Stop Time Status Last Admin Dose Admin Acetaminophen (Tylenol Tab) 650 mg NOW STAT PO 06/14/17 04:10 06/14/17 04:11 DC 06/14/17 04:30 650 MG Dicyclomine HCl (Bentyl Tab) 20 mg NOW STAT PO 06/14/17 04:10 06/14/17 04:11 DC 06/14/17 04:29 20 MG Potassium Chloride (Klor-Con M10) 40 meq NOW STAT PO 06/14/17 04:53 06/14/17 04:54 DC 06/14/17 06:55 40 MEQ ECG Per My Interpretation Indication: abdominal pain Rate (beats per minute): 74 Rhythm: normal sinus Findings: no acute ischemic change, no ectopy, other (normal axis, no ST elevations or depressions) ED Course 0334: The patient was evaluated in room A2. A complete history and physical exam was performed. 0410: Ordered Bentyl Tab 20 mg PO, Tylenol Tab 650 mg PO. 0453: Ordered Potassium Chloride 40 meq PO. 0608: I reevaluated the patient and updated her on her results. She is feeling much better and right now states that her bleeding seems more normal to her. She again denies any foul discharge or odor vaginally. 0715: Patient updated on conversation with Dr. Varghese, precautions a symptoms to monitor for, follow-up in the office, continue use of her medication, ways to prevent constipation, she verbalized understanding was agreeable with plan. Medical Decision Differential diagnosis: Etiologies such as dysfunction uterine bleeding, bleeding dyscrasia, trauma, infection, retained POCs, endometritis, normal post bleeding, as well as others were entertained. Patient well-appearing here throughout, vital signs stable, blood pressures improved compared to prior measurements reported by patient. Patient has been compliant with her medications. Patient concern for increased pain and bleeding , however no significant bleeding while here for evaluation. Patient's pain improved with Tylenol and Bentyl. Possible mild component of constipation in this state. Patient's labs reassuring, H&H improved compared to June 05. Discussed patient's presentation, recent history, and ultrasound findings with Dr. Varghese. This patient is stable for outpatient follow-up in the office which is over the scheduled for this week. Discussed with patient at length symptoms to watch and return for, normal course with cramping, bleeding, constipation, and repair of her perineum. Medication Reconcilliation Current Medication List: was personally reviewed by me Blood Pressure Screening Patient's blood pressure: Elevated blood pressure Blood pressure disposition: Referred to PCP Consults Time Called: 0632 Consulting Physician: Dr. 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 Feels patient is safe and stable for discharge with follow-up in the office as early scheduled. Discussed precautions to advise patient on of symptoms to watch and return for, normal timing and pattern of bleeding, continued use of her medications. I do not suspect additional blood pressure related issues, no evidence of hypertensive urgency, preeclampsia, no lower extremity edema. I do not suspect infectious etiology given lack of fevers and leukocytosis, no abnormal discharge on pelvic exam. Impression Primary Impression: Abdominal pain Additional Impressions: bleeding Hypertension Scribe Attestation The scribe's documentation has been prepared under my direction and personally reviewed by me in its entirety. I confirm that the note above accurately reflects all work, treatment, procedures, and medical decision making performed by me. Departure Information Dispostion Home / Self-Care Referrals Beata Branham DO (PCP) Patient Instructions My [facility] Additional Instructions Please follow up with her ANIMATION PRODUCER in the office this week. Please continue your medications as prescribed. Please avoid any additional salt in your diet including process foods, deli meats, can goods, or other salty snacks. Please make sure you're drinking plenty of water. If you have any recurrent or worsening abdominal pain, develop fevers, vaginal bleeding or you are feeling a pad an hour for several hours, develop dizziness or passing out, vomiting, foul odor or discharge, or you've any other new concerns, please return the emergency room. Problem Qualifiers Primary Impression: Abdominal pain Abdominal location: lower abdomen, unspecified Qualified Codes: R10.30 - Lower abdominal pain, unspecified Additional Impressions: bleeding hemorrhage type: unspecified Qualified Codes: O72.1 - Other immediate hemorrhage Hypertension Hypertension type: unspecified Qualified Codes: I10 - Essential (primary) hypertension
[2017-06-14 04:21] LABS: ALBUMIN 3.2 gm/dl (3.4-5.0); CALCIUM 8.6 mg/dl (8.5-10.1); CREATININE 0.93 mg/dl (0.60-1.20); POTASSIUM 3.1 mmol/L (3.5-5.1)
[2017-06-14 04:23] LABS: TOTAL PROTEIN 7.5 gm/dl (6.4-8.2)
[2017-06-14] MEDS ORDERED: POTASSIUM CHLORIDE 10 MEQ TABCR PO STA (04:53)
[2017-06-14 05:15] VITALS: TEMP 36.8
--- NOTE | 2017-06-14 07:33 | DIAGNOSTIC IMAGING REPORT ---
KUB CLINICAL HISTORY: Abdominal pain. Possible constipation. COMPARISON STUDY: None. FINDINGS: The bowel gas pattern is normal. There is minimal stool within the rectum. Mild to moderate amount stool within the colon is noted. IMPRESSION: 1. No evidence for a bowel obstruction. 2. Minimal stool within the rectum with mild to moderate amount stool within the colon. Electronically signed by: Asif Zuniga M.D. 06/14/2017 7:31 AM Dictated Date/Time: 06/14/2017 7:30 AM
[2017-06-14 07:42] VITALS: BP 145/98; PULSE 73; O2SAT 100
--- NOTE | 2017-06-14 08:48 | DIAGNOSTIC IMAGING REPORT ---
PELVIC ULTRASOUND CLINICAL HISTORY: . Increased pain. COMPARISON STUDY: None TECHNIQUE: Transabdominal sonography of the pelvis was performed. Transvaginal imaging was deferred in this patient. FINDINGS: The uterus is enlarged, measuring 14 x 8.1 x 9.1 cm. The endometrium is not well visualized on this exam but appears thickened, measuring 3 cm in thickness. The endometrium is heterogeneous. No foci of increased vascularity are noted within the endometrium. The endometrium appears normal thickness within the fundus. The ovaries were partially obscured but likely normal in size. Color flow is identified within the ovaries. There is no free fluid. IMPRESSION: Thickened heterogeneous endometrium without increased vascularity. This could reflect blood clot or retained products of conception. Electronically signed by: Asif Zuniga M.D. 06/14/2017 8:47 AM Dictated Date/Time: 06/14/2017 8:38 AM
== END 2017-06-14 07:43 | disposition home or self-care (01) ==
LOC: C.EDB 03:24 → C.EDA 07:43
DX: O72.2 Delayed and secondary postpartum hemorrhage (principal); R10.30 Lower abdominal pain, unspecified; I10 Essential (primary) hypertension; F17.210 Nicotine dependence, cigarettes, uncomplicated

== ENCOUNTER → 2017-07-11 | Outpatient (CLI) | payer BC, OTHER ==
[2017-07-11 16:46] LABS: BASO % 0.3 %; BASO ABS # 0.02 K/uL (0-0.2); EOS % 2.5 %; EOS ABS # 0.18 K/uL (0-0.5); HEMATOCRIT 39.1 % (37-47); HEMOGLOBIN 12.6 g/dL (12.0-16.0); IG# 0.01 K/uL (0.00-0.02); LYMPH % 28.3 %; LYMPH ABS # 2.01 K/uL (1.2-3.4); MEAN CELL VOLUME 80.6 fL (80-100); MEAN CORPUSCULAR HGB CONC 32.2 g/dl (32-36); MEAN PLATELET VOLUME 11.1 fL (7.4-10.4); MONO % 7.2 %; MONO ABS # 0.51 K/uL (0.11-0.59); NEUT % 61.6 %; NEUT ABS # 4.36 K/uL (1.4-6.5); PLATELET COUNT 313 K/uL (130-400); RED CELL DISTRIBUTION WIDTH CV 13.4 % (11.5-14.5); RED CELL DISTRIBUTION WIDTH SD 39.4 fL (36.4-46.3); WHITE BLOOD COUNT 7.09 K/uL (4.8-10.8)
[2017-07-11 16:55] LABS: BLOOD UREA NITROGEN 14 mg/dl (7-18); CALCIUM 9.3 mg/dl (8.5-10.1); CARBON DIOXIDE 26 mmol/L (21-32); GLUCOSE 96 mg/dl (70-99); POTASSIUM 3.7 mmol/L (3.5-5.1); SODIUM 137 mmol/L (136-145)
== END | disposition home or self-care (01) ==
LOC: C.LABPBG 13:06
PROVIDERS: ATTEND Family Medicine
DX: R53.83 Other fatigue (principal); R00.2 Palpitations

== ENCOUNTER 2023-12-15 11:35 | Inpatient (IN) ==
--- NOTE | 2023-12-15 12:04 | Emergency Department Note ---
Impression & Plan Suicidal ideation, Depression, Acute UTI (urinary tract infection), Acute psychosis, Polysubstance abuse ED Provider Note HISTORY OF PRESENT ILLNESS: Patient is a 28-year-old female presenting with suicidal ideation and depression. Patient reports she has a history of bipolar 1 disorder. She reports she has been off of her medications for the last month because she ran out of them. She states that she had recently moved to [place] and finished her medications but then moved back to the [facility], but could not find a outpatient provider who would refill them without her going inpatient, per the patient. She reports that she has been feeling suicidal daily and hearing voices that tell her it would be better if she were just or that if she would walk somewhere and just never come back. She states that she occasionally sees the shadowy figures that she knows are not there. She reports previous suicide attempts including overdosing on medications and drinking bleach. Reports that she has had multiple inpatient psychiatric stays in the past. She reports that "I am on my meds I feel much better." Her sister presented with her today and stated that the patient has been very impulsive recently and running out of the house in the middle of the night with no shoes on. ROS: as above PHYSICAL EXAM: Constitutional: Patient appears in no acute distress. Patient is tearful. HENT: Head: Normocephalic and atraumatic. Eyes: EOMI, PERRL Mouth/Throat: Mucous membranes moist. Neck: Trachea midline. Neck supple. Musculoskeletal: No edema, tenderness or deformity noted. Skin: Warm and dry. No rash, erythema, pallor or cyanosis Psychiatric: Appropriate mood and affect for situation. Neurological: Alert and keenly responsive. CN II-XII grossly intact, moving all extremities equally and fully. MDM: - Vitals signs showed tachycardia - History obtained via patient. History as above. - Chronic conditions affecting care: Bipolar 1 disorder - Differential diagnoses include, but are not limited to: Alcohol intoxication; drug intoxication; medication withdrawal; depression - External medical records reviewed. - Laboratory workup interpreted by myself showed slightly elevated WBC (11.27); normal electrolytes; normal TSH; negative alcohol/acetaminophen/salicylate level - UA showed evidence of infection. Patient given 500 mg of p.o. Keflex in the emergency department. She will need treatment with 500 mg Keflex 3 times daily for the next 7 days for her UTI treatment while inpatient - UDS positive for methamphetamine, fentanyl, and THC. - Patient given 0.5 mg PO ativan, as she was becoming very anxious to the emergency department. She is also given a nicotine patch to help with her nicotine craving. - Patient was agreeable to voluntary admission under a 201. A bed search was started and [facility] psychiatric unit [facility] [address] was willing to take the patient, but the attending psychiatrist requested that an EKG and a CT head be performed to rule out any other underlying source of her acute psychosis. - EKG interpreted by myself showed normal sinus rhythm. Rate 75 bpm. QT 386. No acute ischemic changes. - CT head wo contrast today for acute pathology. - Patient admitted to the inpatient psychiatric unit [facility]. of [facility] ASSESSMENT AND PLAN: Diagnosis: acute psychosis; suicidal ideation; depression; polysubstance abuse; acute UTI Plan: admit [address] Past Med/Surg History Problem List (Updated 12/15/23 @ 18:59 by Celine Denise MD) Polysubstance abuse (Acute) Acute psychosis (Acute) Acute UTI (urinary tract infection) (Acute) Depression (Acute) Suicidal ideation (Acute) Hyperglycemia (Acute) Noncompliance (Acute) Delusional disorder (Acute) Alcohol use disorder, mild, in early remission Methamphetamine use disorder, mild, in early remission, abuse Bipolar 1 disorder, mixed, severe Vitamin D deficiency Anxiety HTN (hypertension) Medical History (Updated 12/15/23 @ 18:59 by Celine Denise MD) Cholelithiasis Surgical History (System 11/25/23 @ 10:37 by Monse Smith) S/P laparoscopic cholecystectomy 10/27/17 H/O wisdom tooth extraction Family History (System 11/25/23 @ 10:37 by Monse Smith) Mother Anxiety Depression Grandmother (Maternal) Hypertension Denies family history of Ovarian cancer Prostate cancer Myocardial infarction Breast cancer Colorectal cancer Social History (System 11/25/23 @ 10:37 by Monse Smith) Smoking Status: Current every day smoker Tobacco Type: Cigarettes Age Started Using Tobacco: 19; packs per day: 0.5; Second Hand Exposure: Yes; Hx Alcohol Use: Yes Hx Substance Use: No Preferred Language: Yoruba Visual Impairment: No Limitations Hearing Ability: Normal marital status: Single Current Living Situation Comment: lives with daughter current occupational status: employed current occupation: parttime; [employer] Patient Feels Safe at Home: Yes Dental Care, Regularly: Yes Physical Activity Frequency: 1-2 Times per Week Gender Identity: Female Allergies Allergies Allergy/AdvReac Type Severity Reaction Status Date / Time No Known Drug Allergies Allergy Verified 11/25/23 10:37 Home Meds Home Medications Medication Instructions Recorded Confirmed benztropine 1 mg tablet 1 mg PO 1XD 12/15/23 12/15/23 divalproex 250 mg tablet,delayed 250 mg PO 2XD 12/15/23 12/15/23 release fluoxetine 10 mg capsule 10 mg PO 1XD 12/15/23 12/15/23 gabapentin 100 mg capsule 200 mg PO 2XD 12/15/23 12/15/23 hydroxyzine pamoate 50 mg capsule 50 mg PO HS PRN Sleep 12/15/23 12/15/23 olanzapine 10 mg tablet 10 mg PO 1XD 12/15/23 12/15/23 trazodone 100 mg tablet 100 mg PO HS 12/15/23 12/15/23 Results & Data (ED) Vital Signs Vital Signs - 24 hr 12/15/23 11:37 12/15/23 13:38 12/15/23 16:37 Temperature 36.9 C Temperature Source Temporal Artery Scan Pulse Rate 105 H Pulse Rate [Finger] 85 73 Pulse Rhythm [Finger] Regular Pulse Strength [Finger] Normal Respiratory Rate 20 20 18 Respiratory Effort / Characteristics Non-Labored Spontaneous Non-Labored Spontaneous Respiratory Depth Normal Normal Respiratory Pattern Regular Blood Pressure 117/75 Blood Pressure [Right Arm] 110/77 121/81 Blood Pressure Mean 89 Blood Pressure Mean [Right Arm] 88 94 Blood Pressure Position Sitting Blood Pressure Position [Right Arm] Sitting Pulse Oximetry 99 98 99 Oxygen Delivery Method Room Air Room Air Room Air Sepsis Recent Fever Within 48 Hours No Sepsis New/Unexplained Change in Mental Status No Sepsis Action Taken by Nursing No Action Required 12/15/23 18:34 Temperature Temperature Source Pulse Rate Pulse Rate [Finger] 80 Pulse Rhythm [Finger] Pulse Strength [Finger] Respiratory Rate 18 Respiratory Effort / Characteristics Respiratory Depth Respiratory Pattern Blood Pressure Blood Pressure [Right Arm] 121/82 Blood Pressure Mean Blood Pressure Mean [Right Arm] 95 Blood Pressure Position Blood Pressure Position [Right Arm] Pulse Oximetry 97 Oxygen Delivery Method Room Air Sepsis Recent Fever Within 48 Hours Sepsis New/Unexplained Change in Mental Status Sepsis Action Taken by Nursing Laboratory Data 12/15/23 12:06 12/15/23 12:06 Lab Results 12/15/23 12/15/23 12/15/23 Range/Units 11:55 12:00 12:06 WBC 11.27 H (4.8-10.8) K/ul RBC 5.38 (4.20-5.40) M/uL Hgb 15.7 (12.0-16.0) g/dl Hct 45.6 (37.0-47.0) % MCV 84.8 (80.0-100.0) fL MCH 29.2 (25.0-34.0) pg MCHC 34.4 (32.0-36.0) g/dL RDW Std Deviation 40.0 (36.4-46.3) fL RDW Coeff of Judith 13.0 (11.5-14.5) % Plt Count 309 (130-400) K/uL MPV 10.4 (9.4-12.4) fL Immature Gran % (Auto) 0.3 % Neut % (Auto) 73.2 % Lymph % (Auto) 15.2 % Kerr % (Auto) 8.7 % Eos % (Auto) 2.3 % Baso % (Auto) 0.3 % Neut # (Auto) 8.26 H (1.40-6.50) K/uL Lymph # (Auto) 1.71 (1.20-3.40) K/uL Kerr # (Auto) 0.98 H (0.11-0.59) K/uL Eos # (Auto) 0.26 (0.00-0.50) K/uL Baso # (Auto) 0.03 (0.00-0.20) K/uL Immature Gran # (Auto) 0.03 (0.01-0.20) K/uL Sodium 137 (136-145) mmol/L Potassium 3.8 (3.5-5.1) mmol/L Chloride 106 (98-107) mmol/L Carbon Dioxide 21 (21-32) mmol/L Anion Gap 10 (3-11) BUN 16 (6-23) mg/dl Creatinine 0.83 (0.6-1.2) mg/dl Est Cr Clr Drug Dosing 108.8 ml/min Est GFR ( Amer) 109.7 ml/min Est GFR (Non-Af Amer) 94.6 ml/min BUN/Creatinine Ratio 19.3 (10-20) Glucose 100 H (70-99(Fasting)) mg/dl Calcium 9.5 (8.6-10.3) mg/dl Total Bilirubin 0.7 (0.2-1.0) mg/dl AST 16 (13-39) U/L ALT 18 (7-52) U/L Alkaline Phosphatase 61 (34-104) U/L Total Protein 8.0 (6.0-8.3) gm/dl Albumin 4.8 (3.4-5.0) gm/dl Globulin 3.2 (2.5-4.0) gm/dl Albumin/Globulin Ratio 1.5 (0.9-2) TSH 1.988 (0.300-4.500) uIu/ml Urine Color [place] Urine Appearance Turbid A (Clear) Urine pH 5.5 (4.5-7.5) Ur Specific [place] 1.026 (1.000-1.030) Urine Protein 4+ H (Negative) Urine Glucose (UA) Negative (Negative) Urine Ketones 3+ H (Negative) Urine Blood 3+ H (Negative) Urine Nitrite Negative (Negative) Urine Bilirubin 2+ H (Negative) Urine Urobilinogen Negative (Negative) Ur Leukocyte Esterase 3+ H (Negative) Urine WBC (Auto) >50 H (0-5) /hpf Urine RBC (Auto) >20 H (0-2) /hpf U Hyaline Cast (Auto) >20 H (0-2) /lpf U Epithel Cells (Auto) 11-20 H (0-2) /hpf Urine Bacteria (Auto) 4+ H (None Seen) POC Ur Test (NEG) Salicylates < 3.0 L (3.0-30) mg/dl Urine Opiates Screen Neg (Neg) Ur Methadone, Qual Neg (Neg) Urine Fentanyl Screen Pos H (Neg) Acetaminophen < 3 L (10-30) ug/ml Urine Barbiturates Neg (Neg) Ur Phencyclidine (PCP) Neg (Neg) U Amphetamin/Meth Scrn Pos H (Neg) MDMA (Ecstasy) Screen Neg (Neg) U Benzodiazepines Scrn Neg (Neg) Ur Cocaine Metabolite Neg (Neg) U Marijuana (THC) Screen Pos H (Neg) Ethyl Alcohol mg/dL < 10.0 (<10.0) mg/dl SARS-CoV-2, RNA, NAAT NEGATIVE (NEGATIVE) 12/15/23 Range/Units 12:12 WBC (4.8-10.8) K/ul RBC (4.20-5.40) M/uL Hgb (12.0-16.0) g/dl Hct (37.0-47.0) % MCV (80.0-100.0) fL MCH (25.0-34.0) pg MCHC (32.0-36.0) g/dL RDW Std Deviation (36.4-46.3) fL RDW Coeff of Judith (11.5-14.5) % Plt Count (130-400) K/uL MPV (9.4-12.4) fL Immature Gran % (Auto) % Neut % (Auto) % Lymph % (Auto) % Kerr % (Auto) % Eos % (Auto) % Baso % (Auto) % Neut # (Auto) (1.40-6.50) K/uL Lymph # (Auto) (1.20-3.40) K/uL Kerr # (Auto) (0.11-0.59) K/uL Eos # (Auto) (0.00-0.50) K/uL Baso # (Auto) (0.00-0.20) K/uL Immature Gran # (Auto) (0.01-0.20) K/uL Sodium (136-145) mmol/L Potassium (3.5-5.1) mmol/L Chloride (98-107) mmol/L Carbon Dioxide (21-32) mmol/L Anion Gap (3-11) BUN (6-23) mg/dl Creatinine (0.6-1.2) mg/dl Est Cr Clr Drug Dosing ml/min Est GFR ( Amer) ml/min Est GFR (Non-Af Amer) ml/min BUN/Creatinine Ratio (10-20) Glucose (70-99(Fasting)) mg/dl Calcium (8.6-10.3) mg/dl Total Bilirubin (0.2-1.0) mg/dl AST (13-39) U/L ALT (7-52) U/L Alkaline Phosphatase (34-104) U/L Total Protein (6.0-8.3) gm/dl Albumin (3.4-5.0) gm/dl Globulin (2.5-4.0) gm/dl Albumin/Globulin Ratio (0.9-2) TSH (0.300-4.500) uIu/ml Urine Color Urine Appearance (Clear) Urine pH (4.5-7.5) Ur Specific [place] (1.000-1.030) Urine Protein (Negative) Urine Glucose (UA) (Negative) Urine Ketones (Negative) Urine Blood (Negative) Urine Nitrite (Negative) Urine Bilirubin (Negative) Urine Urobilinogen (Negative) Ur Leukocyte Esterase (Negative) Urine WBC (Auto) (0-5) /hpf Urine RBC (Auto) (0-2) /hpf U Hyaline Cast (Auto) (0-2) /lpf U Epithel Cells (Auto) (0-2) /hpf Urine Bacteria (Auto) (None Seen) POC Ur Test NEG (NEG) Salicylates (3.0-30) mg/dl Urine Opiates Screen (Neg) Ur Methadone, Qual (Neg) Urine Fentanyl Screen (Neg) Acetaminophen (10-30) ug/ml Urine Barbiturates (Neg) Ur Phencyclidine (PCP) (Neg) U Amphetamin/Meth Scrn (Neg) MDMA (Ecstasy) Screen (Neg) U Benzodiazepines Scrn (Neg) Ur Cocaine Metabolite (Neg) U Marijuana (THC) Screen (Neg) Ethyl Alcohol mg/dL (<10.0) mg/dl SARS-CoV-2, RNA, NAAT (NEGATIVE) Administered Medications Discontinued Medications Cephalexin HCl (Cephalexin 250 Mg Cap) 500 mg PO NOW ONE Stop: 12/15/23 12:57 Last Admin: 12/15/23 13:05 Dose: 500 mg Documented By: WILFREDO Lorazepam (Lorazepam 0.5 Mg Tab) 0.5 mg PO NOW STA Stop: 12/15/23 15:30 Last Admin: 12/15/23 15:32 Dose: 0.5 mg Documented By: SABA Nicotine (Nicotine 14 Mg/24 Hr Patch) Confirm Administered Dose 1 patch TD .STK- MED ONE Stop: 12/15/23 14:41 Last Admin: 12/15/23 14:42 Dose: 1 patch Documented By: WILFREDO Imaging Data Radiologist's Impression: Head CT 12/15/23 18:30 CT OF THE HEAD WITHOUT CONTRAST CLINICAL HISTORY: New onset psychosis. COMPARISON STUDY: No previous studies for comparison. CT DOSE: 547.75 mGy.cm TECHNIQUE: Helical axial images of the head were obtained without IV contrast. Automated exposure control was utilized for the study. A dose lowering technique was utilized adhering to the principles of ALARA. FINDINGS: No acute intracranial hemorrhage, midline shift or mass effect is present. The ventricular system is unremarkable. The basal cisterns are patent. No extra-axial collections are present. There are no findings to suggest acute dural sinus thrombosis or acute territorial infarct. No significant calvarial abnormalities are present. Visualized portions of the sinuses and mastoid air cells are clear. IMPRESSION: No acute intracranial findings. ACT 112: Negative or not required by law. Electronically signed by: Asif Zuniga M.D. 12/15/2023 6:47 PM Discharge Plan Visit Data Chief Complaint: Mental Health Evaluation Stated Complaint: MHE ED Provider: Celine Denise Discharge Problem: Suicidal ideation, Depression, Acute UTI (urinary tract infection), Acute psychosis, Polysubstance abuse Forms Stand Alone Forms: [facility], Suicide Prevention Resources Prescriptions Prescriptions: No Action divalproex 250 mg tablet,delayed release (DR/EC) 250 mg PO 2XD hydroxyzine pamoate 50 mg capsule 50 mg PO HS PRN (Reason: Sleep) olanzapine 10 mg tablet 10 mg PO 1XD trazodone 100 mg tablet 100 mg PO HS benztropine 1 mg tablet 1 mg PO 1XD fluoxetine 10 mg capsule 10 mg PO 1XD gabapentin 100 mg capsule 200 mg PO 2XD Referrals Referrals: PCP,NO [Primary Care Provider] -
[2023-12-15 12:31] LABS: Basophils # (auto) 0.03 K/uL (0.00-0.20); Basophils % (auto) 0.3 %; Eosinophils # (auto) 0.26 K/uL (0.00-0.50); Eosinophils % (auto) 2.3 %; Hematocrit (blood only) 45.6 % (37.0-47.0); Hemoglobin 15.7 g/dl (12.0-16.0); Immature Granulocytes # (auto) 0.03 K/uL (0.01-0.20); Immature Granulocytes % (auto) 0.3 %; Lymphocytes # (auto) 1.71 K/uL (1.20-3.40); Lymphocytes % (auto) 15.2 %; Mean Corpuscular Hemoglobin 29.2 pg (25.0-34.0); Mean Corpuscular Hgb Conc 34.4 g/dL (32.0-36.0); Mean Corpuscular Volume 84.8 fL (80.0-100.0); Mean Platelet Volume 10.4 fL (9.4-12.4); Monocytes # (auto) 0.98 K/uL (0.11-0.59); Monocytes % (auto) 8.7 %; Neutrophils # (auto) 8.26 K/uL (1.40-6.50); Neutrophils % (auto) 73.2 %; Platelet Count 309 K/uL (130-400); Red Blood Count 5.38 M/uL (4.20-5.40); White Blood Count 11.27 K/ul (4.8-10.8)
[2023-12-15 12:45] LABS: Appearance Urine Turbid (Clear); Bacteria Urine Automated 4+ (None Seen); Bilirubin Urine 2+ (Negative); Blood Urine 3+ (Negative); Cast Urine Automated >20 /lpf (0-2); Color Urine Orange; Glucose Urine UA Negative (Negative); Ketones Urine 3+ (Negative); Leukocyte Esterase Urine 3+ (Negative); Nitrite Urine Negative (Negative); Protein Urine 4+ (Negative); RBC Urine Automated >20 /hpf (0-2); Specific Gravity Urine 1.026 (1.000-1.030); Urobilinogen Urine Negative (Negative); WBC Urine Automated >50 /hpf (0-5); pH Urine 5.5 (4.5-7.5)
[2023-12-15 12:46] LABS: Albumin Globulin Ratio 1.5 (0.9-2); Albumin Level 4.8 gm/dl (3.4-5.0); BUN Creatinine Ratio 19.3 (10-20); Bilirubin,Total 0.7 mg/dl (0.2-1.0); Calcium 9.5 mg/dl (8.6-10.3); Creatinine Clr Calc Pharmacy 108.8 ml/min; Est GFR (African American) 109.7 ml/min; Est GFR (Non-African American) 94.6 ml/min; Globulin 3.2 gm/dl (2.5-4.0); Potassium 3.8 mmol/L (3.5-5.1)
[2023-12-15 13:01] LABS: Thyroid Stimulating Hormone 1.988 uIu/ml (0.300-4.500)
[2023-12-15] MEDS: cephALEXin 250 MG CAP PO ONE (13:05)
[2023-12-15 13:15] LABS: Amphetamines+Metham, Urine Pos (Neg); Barbiturates, Urine Neg (Neg); Benzodiazepine, Urine Neg (Neg); Cocaine, Urine Neg (Neg); Fentanyl, Urine Pos (Neg); MDMA (Ecstacy), Urine Neg (Neg); Marijuana, Urine Pos (Neg); Methadone, Urine Neg (Neg); Opiate, Urine Neg (Neg); Phencyclidine, Urine Neg (Neg)
[2023-12-15 13:17] LABS: Acetaminophen < 3 ug/ml (10-30); Salicylate < 3.0 mg/dl (3.0-30)
[2023-12-15] MEDS ORDERED: NICOTINE 14 MG/24 HR PATCH TD STA (14:26)
[2023-12-15] MEDS: NICOTINE 14 MG/24 HR PATCH TD ONE (14:42)
[2023-12-15] MEDS: LORazepam 0.5 MG TAB PO STA (15:32)
--- NOTE | 2023-12-15 18:49 | CT Scan Report ---
CT OF THE HEAD WITHOUT CONTRAST CLINICAL HISTORY: New onset psychosis. COMPARISON STUDY: No previous studies for comparison. CT DOSE: 547.75 mGy.cm TECHNIQUE: Helical axial images of the head were obtained without IV contrast. Automated exposure con trol was utilized for the study. A dose lowering technique was utilized adhering to the principles o f ALARA. FINDINGS: No acute intracranial hemorrhage, midline shift or mass effect is present. The ventricular system is unremarkable. The basal cisterns are patent. No extra-axial collections are present. There are no findings to suggest acute dural sinus thrombosis or acute territorial infarct. No significant calvarial abnormalities are present. Visualized portions of the sinuses and mastoid air cells are abdifatah ar. IMPRESSION: No acute intracranial findings. ACT 112: Negative or not required by law. Electronically signed by: Asif uZniga M.D. 12/15/2023 6:47 PM
[2023-12-15] MEDS ORDERED: ALUMINUM/MAGNESIUM SUSP 30 ML UDC PO PRN (19:32)
[2023-12-15] MEDS ORDERED: BISMUTH SUBSALICYLATE LIQD 236 ML PO PRN (19:32)
[2023-12-15] MEDS ORDERED: ACETAMINOPHEN 325 MG TAB PO PRN (19:32)
[2023-12-15] MEDS ORDERED: SODIUM CHLORIDE 0.65% NA SOLN 45 ML (OCEAN) PRN (19:32)
[2023-12-15] MEDS ORDERED: OLANZapine 5 MG TABLET PO PRN (19:33)
[2023-12-15] MEDS: LORazepam 1 MG TAB PO PRN (19:54)
[2023-12-15] MEDS: diphenhydrAMINE Capsule 25 MG CAP PO SCH (21:05)
[2023-12-15] MEDS: risperiDONE 2 MG TABLET PO SCH (21:05)
[2023-12-15] MEDS ORDERED: diphenhydrAMINE Capsule 25 MG CAP PO SCH (22:00)
[2023-12-16] MEDS: NICOTINE 21 MG/24 HR TDSY TD SCH (10:35)
[2023-12-16] MEDS ORDERED: OLANZapine 5 MG TABLET PO PRN (13:24)
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
[2023-12-16] MEDS: cephALEXin 500 MG CAP PO SCH (16:00)
[2023-12-16] MEDS: CHOLECALCIFEROL 125 MCG (5,000 UNITS) TAB PO SCH (16:00)
[2023-12-16] MEDS: MAGNESIUM HYDROXIDE SUSP 30 ML UDC PO PRN (19:52)
[2023-12-16] MEDS: traZODone HCL 100 MG TAB PO SCH (20:41)
[2023-12-16] MEDS: LORazepam 1 MG TAB PO SCH (20:43)
--- NOTE | 2023-12-17 06:59 | Electrocardiogram Report ---
Test Reason : Blood Pressure : */* mmHG Vent. Rate : 75 BPM Atrial Rate : 75 BPM P-R Int : 118 ms QRS Dur : 94 ms QT Int : 386 ms P-R-T Axes : 45 69 55 degrees QTcB Int : 431 ms Normal sinus rhythm Normal ECG When compared with ECG of 17-Oct-2017 19:38, No significant change was found Confirmed by Efrain Allred ([id number]) on 12/17/2023 6:58:47 AM Referred By: REFERRED SELF Confirmed By: Efrain Allred
--- NOTE | 2023-12-17 16:49 | Psychiatric Progress Note ---
Date of Service December 17, 2023 Impression / Recommendations Impression Clary Alaniz is a unemployed, domiciled with sister 28-year-old white female history of bipolar disorder, depression, anxiety who was brought in by sister for wandering outside barefoot and complaining of voices instructing self-harm in the context of recent methamphetamine use 4 days prior. She was admitted on 12/15/23 19:22 on a 201 voluntary commitment for psychosis. Patient continues to be restless and there is concern for residual psychosis. She is dysphoric and possibly withdrawing off methamphetamine. Given improvement in psychotic symptoms we will continue titration of risperidone and we will start Depakote for mood lability, restlessness, and sleep. We will draw metabolic labs and vitamin labs. Overall, I spent a total of 30 minutes with this case including review of chart records, nursing report, review of lab work, direct evaluation of the patient at bedside, counseling the patient, multidisciplinary team meeting, orders, and documentation in the electronic health record. (1) Schizoaffective disorder, bipolar type: (2) Acute psychosis: (3) Polysubstance abuse: (4) Methamphetamine use disorder, mild, in early remission, abuse: (5) Alcohol use disorder, mild, in early remission: (6) Noncompliance: (7) Suicidal ideation: (8) Acute UTI (urinary tract infection): (9) Vitamin D deficiency: Plan 12/17/2023: Start risperidone 1 mg every morning. Start Depakote 500 mg at bedtime. Draw labs for: A1c, lipid, B12, vitamin D. 12/16/2023:The patient was admitted to the [facility] ([facility] mental health unit) on q15 min checks (behavioral with suicide precautions) for safety. The patient will participate in group, recreational, and milieu therapies and will be offered additional individual and family sessions as clinically appropriate. Risperidone 2 mg at bedtime Discontinue nightly diphenhydramine, start trazodone 100 mg at bedtime Lorazepam 1 mg at bedtime PRNs: Lorazepam 1 mg every 6 hours as needed for anxiety, olanzapine ODT 5 mg every 8 hours as needed for agitation - Start Keflex 500mg TID for 7 days - Start Vit D 5000u daily Inventory Assets Strengths: family support, housing Needs: medication management, outpatient connection Suicide Risk Level Suicide Risk Level: High-Moderate (q15 min suicide checks) Risk Factors Assessment Male: No : Yes Do You Have Access To A Gun?: No Health Problems: No Mental Health Diagnoses: Yes Substance Use Disorders: Yes Previous Attempt: Yes Family History of Suicide: No Previous Psychiatric Hospitalization: Yes Hopelessness: Yes Protective Factors Assessment Catholic Beliefs: No : No Responsible for Young Children: No Employed: No Stable Relationships: No Supportive Family: Yes Good Rapport with Provider: Yes Absence of Any Risk Factors Above: No Interval History Identifying Information Clary Alaniz is a unemployed, domiciled with sister 28-year-old white female history of bipolar disorder, depression, anxiety who was brought in by sister for wandering outside barefoot and complaining of voices instructing self-harm in the context of recent methamphetamine use 4 days prior. She was admitted on 12/15/23 19:22 on a 201 voluntary commitment for psychosis. Chief Complaint "Everything could be better" Review of Systems Sleep Information Total Hours of Sleep: 6.5 Meal Information Percent Meal Consumed - Breakfast: 0 Percent Meal Consumed - Lunch: 50 Percent Meal Consumed - Dinner: 90 Subjective Subjective Patient was seen & assessed and interval progress reviewed with treatment team nursing and social work Nursing reports patient slept 6.5 hours. Was restless and seen responding to internal stimuli. On interview the patient reports "everything" could be better. Complains of anxiety and feeling "annoyed". Unable to clarify. Reports poor appetite. Says it has been difficult to function. Reports of voices improved and does not report voices this morning. Reports last psychiatr hospitalization [facility] for 2-1/2 weeks. Complains of passive SI and unable to contract for safety. Physical Exam Mental Examination Appearance: Unkempt and Disheveled Eye Contact: Fleeting Contact Motor Behavior: Restless Speech: Slurred Mood: Dyphoric Affect: Congruent Thought Process: Intact and Linear Thought Content: Slowed Thinking Hallucinations: Auditory Insight: Poor Judgement: Poor Vital Signs (Past 24 Hours) Last Vital Signs Temp 36.8 C 12/17/23 06:40 Pulse 78 12/17/23 06:40 Resp 16 12/17/23 06:40 BP 114/79 12/17/23 06:40 Pulse Ox 99 12/15/23 20:12 O2 Del Method Room Air 12/15/23 20:12 Results & Data ([facility]) Current Inpatient Medications Current Inpatient Medications: Current Inpatient Medications Acetaminophen (Acetaminophen 325 Mg Tab) 650 mg PO Q4H PRN PRN Reason: Headache or Minor Fever Stop: 01/14/24 19:31 Al Hydrox/Mg Hydrox/Simethicone (Aluminum/Magnesium Susp 30 Ml Udc) 30 ml PO Q4H PRN PRN Reason: GI Upset Stop: 01/14/24 19:31 Bismuth Subsalicylate (Bismuth Subsalicylate Liqd 236 Ml) 15 ml PO PRN PRN PRN Reason: Loose Stool Stop: 01/14/24 19:31 Cephalexin HCl (Cephalexin 500 Mg Cap) 500 mg PO QID [facility]; Protocol Stop: 12/21/23 15:14 Last Admin: 12/17/23 13:04 Dose: 500 mg Divalproex Sodium (Divalproex Extended Release 500 Mg Tab) 500 mg PO [facility] Stop: 01/16/24 21:59 Lorazepam (Lorazepam 1 Mg Tab) 1 mg PO Q6 PRN PRN Reason: Anxiety Stop: 01/14/24 19:32 Lorazepam (Lorazepam 1 Mg Tab) 1 mg PO [facility] Stop: 01/15/24 21:59 Last Admin: 12/16/23 20:43 Dose: 1 mg Magnesium Hydroxide (Magnesium Hydroxide Susp 30 Ml Udc) 30 ml PO DAILY PRN PRN Reason: Constipation Stop: 01/14/24 19:31 Last Admin: 12/16/23 19:52 Dose: 30 ml Miscellaneous (Remove Nicoderm Patch) 1 each N/A DAILY@0859 [facility] Stop: 01/15/24 10:28 Last Admin: 12/17/23 08:46 Dose: 1 each Nicotine (Nicotine 21 Mg/24 Hr Tdsy) 1 patch TD [facility] Stop: 01/15/24 10:29 Last Admin: 12/17/23 12:25 Dose: 1 patch Olanzapine (Olanzapine 5 Mg Tablet) 5 mg PO Q8 PRN PRN Reason: Agitation Stop: 01/14/24 19:32 Risperidone (Risperidone 2 Mg Tablet) 2 mg PO [facility] Stop: 01/14/24 21:59 Last Admin: 12/16/23 20:41 Dose: 2 mg Risperidone ([facility] 1 Mg Tablet) [facility] Stop: 01/17/24 08:59 Sodium Chloride (Sodium Chloride 0.65% Na Soln 45 Ml ([place])) 2 sprays NA PRN PRN PRN Reason: Nasal Dryness/Congestion Stop: 01/14/24 19:31 Trazodone HCl (Trazodone Hcl 100 Mg Tab) 100 mg PO HS REJI Stop: 01/15/24 21:59 Last Admin: 12/16/23 20:41 Dose: 100 mg Vitamin D (Cholecalciferol 125 Mcg (5,000 Units) Tab) 125 mcg PO QAM [facility] Stop: 01/15/24 15:14 Last Admin: 12/17/23 08:45 Dose: 125 mcg Mental Health & Subst Abuse Tx Psychiatrist Name of Psychiatrist: [facility] Psychiatrist's Date Of Appointment With Psychiatric Provider: 12/30/23 - Friday Time of Appointment with Psychiatrist: 11AM Psychiatric Appointment Comment: Will be seen by psychiatrist after appt with therapist Therapist Name of Therapist: [facility] Therapist's Date of Therapist Appointment: On waitlist - staff will reach out when spot opens Director Of Claims Name of Director Of Claims: N/A Post Discharge Appointments Primary Care Physician Name Of Family Doctor/PCP: None
[2023-12-17] MEDS: NICOTINE POLACRILEX 2 MG GUM MT PRN (18:07)
[2023-12-17] MEDS: DIVALPROEX EXTENDED RELEASE 500 MG TAB PO SCH (21:04)
[2023-12-18] MEDS: risperiDONE 1 MG TABLET PO SCH (09:13)
[2023-12-18] MEDS: LORazepam 1 MG TAB PO PRN (16:47)
--- NOTE | 2023-12-18 17:20 | Psychiatric Progress Note ---
Date of Service December 18, 2023 Impression / Recommendations Impression Clary Alaniz is a unemployed, domiciled with sister 28-year-old white female history of bipolar disorder, depression, anxiety who was brought in by sister for wandering outside barefoot and complaining of voices instructing self-harm in the context of recent methamphetamine use 4 days prior. She was admitted on 12/15/23 19:22 on a 201 voluntary commitment for psychosis. Psychosis is improving. Patient appears less restless. Improved sleep. Tolerating Depakote and increased dose of risperidone. Will redraw labs tomorrow. Overall, I spent a total of 30 minutes with this case including review of chart records, nursing report, review of lab work, direct evaluation of the patient at bedside, counseling the patient, multidisciplinary team meeting, orders, and documentation in the electronic health record. (1) Schizoaffective disorder, bipolar type: (2) Acute psychosis: (3) Polysubstance abuse: (4) Methamphetamine use disorder, mild, in early remission, abuse: (5) Alcohol use disorder, mild, in early remission: (6) Noncompliance: (7) Suicidal ideation: (8) Acute UTI (urinary tract infection): (9) Vitamin D deficiency: Plan 12/18/2023: Continue medications and treatment plan. 12/17/2023: Start risperidone 1 mg every morning. Start Depakote 500 mg at bedtime. Draw labs for: A1c, lipid, B12, vitamin D. 12/16/2023:The patient was admitted to the [facility] ([facility] mental health unit) on q15 min checks (behavioral with suicide precautions) for safety. The patient will participate in group, recreational, and milieu therapies and will be offered additional individual and family sessions as clinically appropriate. Risperidone 2 mg at bedtime Discontinue nightly diphenhydramine, start trazodone 100 mg at bedtime Lorazepam 1 mg at bedtime PRNs: Lorazepam 1 mg every 6 hours as needed for anxiety, olanzapine ODT 5 mg every 8 hours as needed for agitation - Start Keflex 500mg TID for 7 days - Start Vit D 5000u daily Inventory Assets Strengths: family support, housing Needs: medication management, outpatient connection Suicide Risk Level Suicide Risk Level: High-Moderate (q15 min suicide checks) Risk Factors Assessment Male: No : Yes Do You Have Access To A Gun?: No Health Problems: No Mental Health Diagnoses: Yes Substance Use Disorders: Yes Previous Attempt: Yes Family History of Suicide: No Previous Psychiatric Hospitalization: Yes Hopelessness: Yes Protective Factors Assessment Alevism Beliefs: No : No Responsible for Young Children: No Employed: No Stable Relationships: No Supportive Family: Yes Good Rapport with Provider: Yes Absence of Any Risk Factors Above: No Interval History Identifying Information Clary Alaniz is a unemployed, domiciled with sister 28-year-old white female history of bipolar disorder, depression, anxiety who was brought in by sister for wandering outside barefoot and complaining of voices instructing self-harm in the context of recent methamphetamine use 4 days prior. She was admitted on 12/15/23 19:22 on a 201 voluntary commitment for psychosis. Chief Complaint "On edge" Review of Systems Sleep Information Total Hours of Sleep: 5.30 Sleep Comments: HS Ativan, Risperdal and Trazadone Meal Information Percent Meal Consumed - Breakfast: 50 Percent Meal Consumed - Lunch: 100 Percent Meal Consumed - Dinner: 100 Subjective Subjective Patient was seen & assessed and interval progress reviewed with treatment team nursing and social work This a.m. refuse labs. Nursing reports patient has been restless. She slept 5- 1/2 hours. On interview patient reports sleeping better. When asked about voices she says "nothing much". Confirms that they are easier to ignore. Says she continues to feel "on edge". Says she is doing better. She denies SI. Says she will give labs tomorrow. Physical Exam Mental Examination Appearance: Unkempt and Disheveled Eye Contact: Fleeting Contact Motor Behavior: Restless Speech: Slurred Mood: Dyphoric Affect: Congruent Thought Process: Intact and Linear Thought Content: Slowed Thinking Hallucinations: Auditory Insight: Poor Judgement: Poor Vital Signs (Past 24 Hours) Last Vital Signs Temp 36.5 C 12/18/23 06:32 Pulse 83 12/18/23 06:33 Resp 16 12/18/23 06:32 BP 113/84 12/18/23 06:33 Pulse Ox 99 12/15/23 20:12 O2 Del Method Room Air 12/15/23 20:12 Results & Data ([facility]) Current Inpatient Medications Current Inpatient Medications: Current Inpatient Medications Acetaminophen (Acetaminophen 325 Mg Tab) 650 mg PO Q4H PRN PRN Reason: Headache or Minor Fever Stop: 01/14/24 19:31 Al Hydrox/Mg Hydrox/Simethicone (Aluminum/Magnesium Susp 30 Ml Udc) 30 ml PO Q4H PRN PRN Reason: GI Upset Stop: 01/14/24 19:31 Bismuth Subsalicylate (Bismuth Subsalicylate Liqd 236 Ml) 15 ml PO PRN PRN PRN Reason: Loose Stool Stop: 01/14/24 19:31 Cephalexin HCl (Cephalexin 500 Mg Cap) 500 mg PO QID [facility]; Protocol Stop: 12/21/23 15:14 Last Admin: 12/18/23 13:00 Dose: 500 mg Divalproex Sodium (Divalproex Extended Release 500 Mg Tab) 500 mg PO [facility] Stop: 01/16/24 21:59 Last Admin: 12/17/23 21:04 Dose: 500 mg Lorazepam (Lorazepam 1 Mg Tab) 1 mg PO Q6 PRN PRN Reason: Anxiety Stop: 01/14/24 19:32 Last Admin: 12/18/23 16:47 Dose: 1 mg Lorazepam (Lorazepam 1 Mg Tab) 1 mg PO [facility] Stop: 01/15/24 21:59 Last Admin: 12/17/23 21:06 Dose: 1 mg Magnesium Hydroxide (Magnesium Hydroxide Susp 30 Ml Udc) 30 ml PO DAILY PRN PRN Reason: Constipation Stop: 01/14/24 19:31 Last Admin: 12/16/23 19:52 Dose: 30 ml Miscellaneous (Remove Nicoderm Patch) 1 each N/A DAILY@0859 [facility] Stop: 01/15/24 10:28 Last Admin: 12/18/23 09:13 Dose: 1 each Nicotine (Nicotine 21 Mg/24 Hr Tdsy) 1 patch TD QAM [facility] Stop: 01/15/24 10:29 Last Admin: 12/18/23 09:13 Dose: 1 patch Nicotine Polacrilex (Nicotine Polacrilex 2 Mg Gum) 1 piece MT PRN PRN PRN Reason: Smoking Cessation Stop: 01/16/24 18:02 Last Admin: 12/18/23 15:09 Dose: 1 piece Olanzapine (Olanzapine 5 Mg Tablet) 5 mg PO Q8 PRN PRN Reason: Agitation Stop: 09/25/24 19:32 Risperidone (Risperidone 2 Mg Tablet) 2 mg PO HS [facility] Stop: 01/14/24 21:59 Last Admin: 12/17/23 21:04 Dose: 2 mg Risperidone (Risperidone 1 Mg Tablet) 1 mg PO QAM [facility] Stop: 01/17/24 08:59 Last Admin: 12/18/23 09:13 Dose: 1 mg Sodium Chloride (Sodium Chloride 0.65% Na Soln 45 Ml ([place])) 2 sprays NA PRN PRN PRN Reason: Nasal Dryness/Congestion Stop: 01/14/24 19:31 Trazodone HCl (Trazodone Hcl 100 Mg Tab) 100 mg PO HS [facility] Stop: 01/15/24 21:59 Last Admin: 12/17/23 21:04 Dose: 100 mg Vitamin D (Cholecalciferol 125 Mcg (5,000 Units) Tab) 125 mcg PO QAM [facility] Stop: 01/15/24 15:14 Last Admin: 12/18/23 09:13 Dose: 125 mcg Mental Health & Subst Abuse Tx Psychiatrist Name of Psychiatrist: [facility] Psychiatrist's Date Of Appointment With Psychiatric Provider: 12/30/23 - Friday Time of Appointment with Psychiatrist: 11AM Psychiatric Appointment Comment: Will be seen by psychiatrist after appt with therapist Therapist Name of Therapist: [facility] Therapist's Date of Therapist Appointment: On waitlist - staff will reach out when spot opens [employer] Therapist Name of [employer] Therapist: [employer] dairy [employer] manager Phone Number for [employer] Therapist: [phone] Case Management Appointment Comment: dairy frozen manager will contact you to schedule initial appt Post Discharge Appointments Primary Care Physician Name Of Family Doctor/PCP: Vikas
[2023-12-19 10:55] LABS: Estimated Average Glucose 100 mg/dl; Hemoglobin A1C 5.1 % (4.5-5.6)
[2023-12-19 11:32] LABS: Amphetamine Urine, Confirm 3094 ng/mL (<250); Fentanyl, Urine NEGATIVE ng/mL (<0.5); Marijuana Quant, GCMS Urine 20 ng/mL (<5); Methamphetamine, Ur Confirm 7844 ng/mL (<250); Norfentanyl, Urine 7.3 ng/mL (<0.5); medMATCH Fentanyl, Urine DNR; medMATCH Norfentanyl, Urine DNR
[2023-12-19] MEDS: GABAPENTIN 100 MG CAP PO SCH (13:29)
--- NOTE | 2023-12-19 15:34 | Psychiatric Progress Note ---
Date of Service December 19, 2023 Impression / Recommendations Impression Clary Alaniz is a unemployed, domiciled with sister 28-year-old white female history of bipolar disorder, depression, anxiety who was brought in by sister for wandering outside barefoot and complaining of voices instructing self-harm in the context of recent methamphetamine use 4 days prior. She was admitted on 12/15/23 19:22 on a 201 voluntary commitment for psychosis. Psychosis is improving. Patient appears less restless everyday. Improved sleep. Tolerating depakote and risperidone. Attempted to administer Invega Sustenna 234mg today however pharmacy out of stock. Start Gabapentin for anxiety given past success. Overall, I spent a total of 30 minutes with this case including review of chart records, nursing report, review of lab work, direct evaluation of the patient at bedside, counseling the patient, multidisciplinary team meeting, orders, and documentation in the electronic health record. (1) Schizoaffective disorder, bipolar type: (2) Acute psychosis: (3) Polysubstance abuse: (4) Methamphetamine use disorder, mild, in early remission, abuse: (5) Alcohol use disorder, mild, in early remission: (6) Noncompliance: (7) Suicidal ideation: (8) Acute UTI (urinary tract infection): (9) Vitamin D deficiency: Plan 12/19/2023: Colace 100 mg twice daily. Continue medications and treatment plan. Pharmacy is out of stock of Invega Sustenna to 234mg. 12/18/2023: Continue medications and treatment plan. 12/17/2023: Start risperidone 1 mg every morning. Start Depakote 500 mg at bedtime. Draw labs for: A1c, lipid, B12, vitamin D. 12/16/2023:The patient was admitted to the [facility] ([facility] mental health unit) on q15 min checks (behavioral with suicide precautions) for safety. The patient will participate in group, recreational, and milieu therapies and will be offered additional individual and family sessions as clinically appropriate. Risperidone 2 mg at bedtime Discontinue nightly diphenhydramine, start trazodone 100 mg at bedtime Lorazepam 1 mg at bedtime PRNs: Lorazepam 1 mg every 6 hours as needed for anxiety, olanzapine ODT 5 mg every 8 hours as needed for agitation - Start Keflex 500mg TID for 7 days - Start Vit D 5000u daily Inventory Assets Strengths: family support, housing Needs: medication management, outpatient connection Suicide Risk Level Suicide Risk Level: High-Moderate (q15 min suicide checks) Risk Factors Assessment Male: No : Yes Do You Have Access To A Gun?: No Health Problems: No Mental Health Diagnoses: Yes Substance Use Disorders: Yes Previous Attempt: Yes Family History of Suicide: No Previous Psychiatric Hospitalization: Yes Hopelessness: Yes Protective Factors Assessment Advent Beliefs: No : No Responsible for Young Children: No Employed: No Stable Relationships: No Supportive Family: Yes Good Rapport with Provider: Yes Absence of Any Risk Factors Above: No Interval History Identifying Information Clary Alaniz is a unemployed, domiciled with sister 28-year-old white female history of bipolar disorder, depression, anxiety who was brought in by sister for wandering outside barefoot and complaining of voices instructing self-harm in the context of recent methamphetamine use 4 days prior. She was admitted on 12/15/23 19:22 on a 201 voluntary commitment for psychosis. Chief Complaint "Why do I need to be here" Review of Systems Sleep Information Total Hours of Sleep: 7 Sleep Comments: HS Ativan, Risperdal and Trazadone Meal Information Percent Meal Consumed - Breakfast: 100 Percent Meal Consumed - Lunch: 100 Percent Meal Consumed - Dinner: 40 Subjective Subjective Patient was seen & assessed and interval progress reviewed with treatment team nursing and social work Nursing reports patient was constipated. Received Ativan as needed for anxiety. She was set up with case management and therapy. She slept 7 hours. On interview patient reports sleeping well. She reports wanting to leave. Says other patients get to leave. Appears restless moving around the room. I discussed with her the importance for continued treatment and proper aftercare planning including case management to prevent future hospitalizations. She is reassured. Is interested in getting back on the gabapentin. Reports wanting to smoke a cigarette. Says the voices are improved. Pt was reassured and appeared more understanding of her continued stay. Physical Exam Mental Examination Appearance: Unkempt and Disheveled Eye Contact: Fleeting Contact Motor Behavior: Restless Speech: Slurred Mood: Irritable Affect: Congruent Thought Process: Intact and Linear Thought Content: Slowed Thinking Hallucinations: Auditory Insight: Poor Judgement: Poor Vital Signs (Past 24 Hours) Last Vital Signs Temp 36.7 C 12/19/23 06:37 Pulse 86 12/19/23 06:38 Resp 16 12/19/23 06:37 BP 138/99 12/19/23 06:38 Pulse Ox 99 12/15/23 20:12 O2 Del Method Room Air 12/15/23 20:12 Results & Data ([facility]) Laboratory Results Laboratory Results - last 24 hr 12/15/23 12/19/23 11:55 09:08 Estimat Average Glucose 100 Hemoglobin A1c 5.1 Vitamin B12 258 25-OH Vitamin D Total 16.9 L Fentanyl Comments SEE NOTE Drug Monitor Fentanyl DNR Fentanyl Confirmation NEGATIVE Drug Monitor Norfentanyl DNR Ur Norfentanyl Confirm 7.3 H U Amphetamines Confirm 3094 H U Methamphetamin Confrm 7844 H U Marijuana THC Carboxy 20 H Drug Screen Comment SEE NOTE Toxicology Comment SEE NOTE Drug Monitor Historic Res DNR Current Inpatient Medications Current Inpatient Medications: Current Inpatient Medications Acetaminophen (Acetaminophen 325 Mg Tab) 650 mg PO Q4H PRN PRN Reason: Headache or Minor Fever Stop: 01/14/24 19:31 Al Hydrox/Mg Hydrox/Simethicone (Aluminum/Magnesium Susp 30 Ml Udc) 30 ml PO Q4H PRN PRN Reason: GI Upset Stop: 01/14/24 19:31 Bismuth Subsalicylate (Bismuth Subsalicylate Liqd 236 Ml) 15 ml PO PRN PRN PRN Reason: Loose Stool Stop: 01/14/24 19:31 Cephalexin HCl (Cephalexin 500 Mg Cap) 500 mg PO QID [facility]; Protocol Stop: 12/21/23 15:14 Last Admin: 12/19/23 13:27 Dose: 500 mg Divalproex Sodium (Divalproex Extended Release 500 Mg Tab) 500 mg PO HS [facility] Stop: 01/16/24 21:59 Last Admin: 12/18/23 20:33 Dose: 500 mg Docusate Sodium (Docusate Sodium 100 Mg Cap) 100 mg PO BID [facility] Stop: 01/18/24 20:59 Gabapentin (Gabapentin 100 Mg Cap) 100 mg PO BID@0800,1400 [facility] Stop: 01/18/24 13:59 Last Admin: 12/19/23 13:29 Dose: 100 mg Lorazepam (Lorazepam 1 Mg Tab) 1 mg PO Q6 PRN PRN Reason: Anxiety Stop: 01/14/24 19:32 Last Admin: 12/19/23 14:12 Dose: 1 mg Lorazepam (Lorazepam 1 Mg Tab) 1 mg PO HS [facility] Stop: 01/15/24 21:59 Last Admin: 12/18/23 20:33 Dose: 1 mg Magnesium Hydroxide (Magnesium Hydroxide Susp 30 Ml Udc) 30 ml PO DAILY PRN PRN Reason: Constipation Stop: 01/14/24 19:31 Last Admin: 12/18/23 18:51 Dose: 30 ml Miscellaneous (Remove Nicoderm Patch) 1 each N/A DAILY@0859 [facility] Stop: 01/15/24 10:28 Last Admin: 12/19/23 08:46 Dose: 1 each Nicotine (Nicotine 21 Mg/24 Hr Tdsy) 1 patch TD QAM [facility] Stop: 01/15/24 10:29 Last Admin: 12/19/23 08:53 Dose: 1 patch Nicotine Polacrilex (Nicotine Polacrilex 2 Mg Gum) 1 piece MT PRN PRN PRN Reason: Smoking Cessation Stop: 01/16/24 18:02 Last Admin: 12/19/23 14:12 Dose: 1 piece Olanzapine (Olanzapine 5 Mg Tablet) 5 mg PO Q8 PRN PRN Reason: Agitation Stop: 01/14/24 19:32 Risperidone (Risperidone 2 Mg Tablet) 2 mg PO [facility] Stop: 01/14/24 21:59 Last Admin: 12/18/23 20:33 Dose: 2 mg Risperidone (Risperidone 1 Mg Tablet) 1 mg PO QAM [facility] Stop: 01/17/24 08:59 Last Admin: 12/19/23 08:45 Dose: 1 mg Sodium Chloride (Sodium Chloride 0.65% Na Soln 45 Ml ([place])) 2 sprays NA PRN PRN PRN Reason: Nasal Dryness/Congestion Stop: 01/14/24 19:31 Trazodone HCl (Trazodone Hcl 100 Mg Tab) 100 mg PO [facility] Stop: 01/15/24 21:59 Last Admin: 12/18/23 20:34 Dose: 100 mg Vitamin D (Cholecalciferol 125 Mcg (5,000 Units) Tab) 125 mcg PO QAM [facility] Stop: 01/15/24 15:14 Last Admin: 12/19/23 08:45 Dose: 125 mcg Mental Health & Subst Abuse Tx Psychiatrist Name of Psychiatrist: [facility] Psychiatrist's Date Of Appointment With Psychiatric Provider: 12/30/23 - Friday Time of Appointment with Psychiatrist: 11AM Psychiatric Appointment Comment: Will be seen by psychiatrist after appt with sydney machuca Therapist Name of Therapist: [facility] Therapist's Date of Therapist Appointment: On waitlist - staff will reach out when spot opens Commissioned Fire Officer Name of Commissioned Fire Officer: [employer] condominium association manager Phone Number for Commissioned Fire Officer: [phone] Case Management Appointment Comment: condominium association manager will contact you to schedule initial appt Post Discharge Appointments Primary Care Physician Name Of Family Doctor/PCP: Vikas
[2023-12-19] MEDS: DOCUSATE SODIUM 100 MG CAP PO SCH (20:46)
--- NOTE | 2023-12-20 09:25 | Psychiatric Progress Note ---
Date of Service December 20, 2023 Impression / Recommendations Impression Clary Alaniz is a 28-year-old woman with a history of bipolar disorder, depression, anxiety who was brought in by sister for wandering outside barefoot and complaining of voices instructing self-harm in the context of recent methamphetamine use 4 days prior. She was admitted on 12/15/23 19:22 on a 201 voluntary commitment for psychosis. Diagnostically consistent with unspecified psychosis with differential including schizoaffective disorder vs bipolar affective disorder current mixed episode vs substance-induced psychosis given recent methamphetamine use prior to admission. Psychosis is improving. Patient appears less restless everyday. Improved sleep. Tolerating Depakote and risperidone. Attempted to administer Invega Sustenna 234mg today however pharmacy out of stock. Start Gabapentin for anxiety given past success. A: Reviewed interim progress, psychosis improving, but still with some disorganized behaviors, irritability and restlessness but gabapentin seems to be helping a bit with restlessness. Difficult to determine if she is experiencing any lingering internal stimuli/AH. Now refusing LOVELACE. Fasting labwork reviewed and notable for slightly elevated TGs, cholesterol and HbA1c normal. Motivational interviewing done, continuing effort to build therapeutic alliance and treatment adherence. The patient's use history and negative consequences suggests substance use disorder. Motivational interviewing was done as a brief intervention. Intervention was greater than 5 minutes in length and included assessing readiness to quit, advice on how to reduce or abstain and to set a specific goal for this hospitalization. mold loft worker will also assist in anticipating barriers to reducing or abstaining from substance use and in problem-solving for solutions to those problems while arranging for referral to appropriate treatment. The patient is in contemplative stage with regards to transtheoretical model of change. Recommended decreasing consumption due to disinhibiting effects and potential for worsening psychiatric symptoms. She is delicing any further treatment options or outpatient resources for methamphetamine use disorder at this time. MNPR due to psychosis and irritability Overall, I spent a total of 45 minutes on this case including meeting with the patient, reviewing the chart, nursing report, multidisciplinary team meeting, orders, and documentation. (1) Schizoaffective disorder, bipolar type: (2) Acute psychosis: (3) Polysubstance abuse: (4) Methamphetamine use disorder, mild, in early remission, abuse: (5) Alcohol use disorder, mild, in early remission: (6) Suicidal ideation: (7) Acute UTI (urinary tract infection): (8) Vitamin D deficiency: Plan 12/20/2023: Continue current medications and tx plan. 12/19/2023: Colace 100 mg twice daily. Continue medications and treatment plan. Pharmacy is out of stock of Invega Sustenna to 234mg. 12/18/2023: Continue medications and treatment plan. 12/17/2023: Start risperidone 1 mg every morning. Start Depakote 500 mg at bedtime. Draw labs for: A1c, lipid, B12, vitamin D. 12/16/2023:The patient was admitted to the [facility]) on q15 min checks (behavioral with suicide precautions) for safety. The patient will participate in group, recreational, and milieu therapies and will be offered additional individual and family sessions as clinically appropriate. Risperidone 2 mg at bedtime Discontinue nightly diphenhydramine, start trazodone 100 mg at bedtime Lorazepam 1 mg at bedtime PRNs: Lorazepam 1 mg every 6 hours as needed for anxiety, olanzapine ODT 5 mg every 8 hours as needed for agitation - Start Keflex 500mg TID for 7 days - Start Vit D 5000u daily Inventory Assets Strengths: family support, housing Needs: medication management, outpatient connection Suicide Risk Level Suicide Risk Level: Moderate (q15 min suicide checks) (psychosis with SI prior to admission, but psychosis improving, denying SI, feels safe in the hospital) Risk Factors Assessment Male: No : Yes Do You Have Access To A Gun?: No Health Problems: No Mental Health Diagnoses: Yes Substance Use Disorders: Yes Previous Attempt: Yes Family History of Suicide: No Previous Psychiatric Hospitalization: Yes Hopelessness: Yes Protective Factors Assessment Spiritism Beliefs: No : No Responsible for Young Children: No Employed: No Stable Relationships: No Supportive Family: Yes Good Rapport with Provider: Yes Absence of Any Risk Factors Above: No Interval History Identifying Information Clary Alaniz is a unemployed, domiciled with sister 28-year-old white female history of bipolar disorder, depression, anxiety who was brought in by sister for wandering outside barefoot and complaining of voices instructing self-harm in the context of recent methamphetamine use 4 days prior. She was admitted on 12/15/23 19:22 on a 201 voluntary commitment for psychosis. Chief Complaint "It pis*es me off". Review of Systems Sleep Information Total Hours of Sleep: 8.5 Sleep Comments: HS Ativan, Risperdal and Trazadone Meal Information Percent Meal Consumed - Breakfast: 100 Percent Meal Consumed - Lunch: 100 Percent Meal Consumed - Dinner: 100 Subjective Subjective Patient was seen & assessed and interval progress reviewed with treatment team nursing and social work. Some irritability but more pleasant overall in her interactions. Less restlessness. Still sleeping in late and struggles to attend groups during the day, especially in the morning. Isolative most of the morning except for meals. She refused morning fasting labwork initially but allowed it later in the morning. Today expresses frustration with other patients being discharged and that she remains in the hospital. Refuses option for LOVELACE. Reviewed option for her to sign a 72 hour notice, she declines at this time. Motivational interviewing regarding substance use, she reports plan to avoid any future substance use but doesn't want to talk but additional support or strategies for having success with this becoming quite irritable and dismissive of further conversation. Denies any me dication side effects. Physical Exam Psychiatric Orientation: alert and oriented x 3 Apperance: + disheveled Eye Contact: + fair eye contact Motor Behavior: + psychomotor agitation Speech: normal rate/rhythm/volume of speech Affect: + irritable affect Mood: + irritable mood Thought Process: + circumstantial thought process Thought Content: + preoccupation Suicidal Thoughts: denies suicidal thoughts Homicidal Thoughts: denies homicidal thoughts Insight: + limited insight Judgment: + limited judgement Vital Signs (Past 24 Hours) Last Vital Signs Temp 36.6 C 12/20/23 06:39 Pulse 93 H 12/20/23 06:40 Resp 16 12/20/23 06:39 BP 127/79 12/20/23 06:40 Pulse Ox 97 12/20/23 06:39 O2 Del Method Room Air 12/20/23 06:39 Results & Data ([facility]) Laboratory Results Laboratory Results - last 24 hr 12/15/23 12/19/23 11:55 09:08 Estimat Average Glucose 100 Hemoglobin A1c 5.1 Vitamin B12 258 25-OH Vitamin D Total 16.9 L Fentanyl Comments SEE NOTE Drug Monitor Fentanyl DNR Fentanyl Confirmation NEGATIVE Drug Monitor Norfentanyl DNR Ur Norfentanyl Confirm 7.3 H U Amphetamines Confirm 3094 H U Methamphetamin Confrm 7844 H U Marijuana THC Carboxy 20 H Drug Screen Comment SEE NOTE Toxicology Comment SEE NOTE Drug Monitor Historic Res DNR Current Inpatient Medications Current Inpatient Medications: Current Inpatient Medications Acetaminophen (Acetaminophen 325 Mg Tab) 650 mg PO Q4H PRN PRN Reason: Headache or Minor Fever Stop: 01/14/24 19:31 Al Hydrox/Mg Hydrox/Simethicone (Aluminum/Magnesium Susp 30 Ml Udc) 30 ml PO Q4H PRN PRN Reason: GI Upset Stop: 01/14/24 19:31 Bismuth Subsalicylate (Bismuth Subsalicylate Liqd 236 Ml) 15 ml PO PRN PRN PRN Reason: Loose Stool Stop: 01/14/24 19:31 Cephalexin HCl (Cephalexin 500 Mg Cap) 500 mg PO QID [facility]; Protocol Stop: 12/21/23 15:14 Last Admin: 12/19/23 20:45 Dose: 500 mg Divalproex Sodium (Divalproex Extended Release 500 Mg Tab) 500 mg PO [facility] Stop: 01/16/24 21:59 Last Admin: 12/19/23 20:46 Dose: 500 mg Docusate Sodium (Docusate Sodium 100 Mg Cap) 100 mg PO BID [facility] Stop: 01/18/24 20:59 Last Admin: 12/19/23 20:46 Dose: 100 mg Gabapentin (Gabapentin 100 Mg Cap) 100 mg PO BID@0800,1400 [facility] Stop: 01/18/24 13:59 Last Admin: 12/19/23 13:29 Dose: 100 mg Lorazepam (Lorazepam 1 Mg Tab) 1 mg PO Q6 PRN PRN Reason: Anxiety Stop: 01/14/24 19:32 Last Admin: 12/19/23 20:11 Dose: 1 mg Lorazepam (Lorazepam 1 Mg Tab) 1 mg PO [facility] Stop: 01/15/24 21:59 Last Admin: 12/19/23 20:47 Dose: 1 mg Magnesium Hydroxide (Magnesium Hydroxide Susp 30 Ml Udc) 30 ml PO DAILY PRN PRN Reason: Constipation Stop: 01/14/24 19:31 Last Admin: 12/18/23 18:51 Dose: 30 ml Miscellaneous (Remove Nicoderm Patch) 1 each N/A DAILY@0859 [facility] Stop: 01/15/24 10:28 Last Admin: 12/19/23 08:46 Dose: 1 each Nicotine (Nicotine 21 Mg/24 Hr Tdsy) 1 patch TD QAM [facility] Stop: 01/15/24 10:29 Last Admin: 12/19/23 08:53 Dose: 1 patch Nicotine Polacrilex (Nicotine Polacrilex 2 Mg Gum) 1 piece MT PRN PRN PRN Reason: Smoking Cessation Stop: 01/16/24 18:02 Last Admin: 12/19/23 17:42 Dose: 1 piece Olanzapine (Olanzapine 5 Mg Tablet) 5 mg PO Q8 PRN PRN Reason: Agitation Stop: 01/14/24 19:32 Risperidone (Risperidone 2 Mg Tablet) 2 mg PO HS [facility] Stop: 01/14/24 21:59 Last Admin: 12/19/23 20:46 Dose: 2 mg Risperidone (Risperidone 1 Mg Tablet) 1 mg PO QAM [facility] Stop: 01/17/24 08:59 Last Admin: 12/19/23 08:45 Dose: 1 mg Sodium Chloride (Sodium Chloride 0.65% Na Soln 45 Ml ([place])) 2 sprays NA PRN PRN PRN Reason: Nasal Dryness/Congestion Stop: 01/14/24 19:31 Trazodone HCl (Trazodone Hcl 100 Mg Tab) 100 mg PO HS [facility] Stop: 01/15/24 21:59 Last Admin: 12/19/23 20:45 Dose: 100 mg Vitamin D (Cholecalciferol 125 Mcg (5,000 Units) Tab) 125 mcg PO QAM [facility] Stop: 01/15/24 15:14 Last Admin: 12/19/23 08:45 Dose: 125 mcg Mental Health & Subst Abuse Tx Psychiatrist Name of Psychiatrist: [facility] Psychiatrist's Date Of Appointment With Psychiatric Provider: 12/30/23 - Friday Time of Appointment with Psychiatrist: 11AM Psychiatric Appointment Comment: Will be seen by psychiatrist after appt with therapist Therapist Name of Therapist: [facility] Therapist's Date of Therapist Appointment: On waitlist - staff will reach out when spot opens Cloth Winder Machine Operator Name of Cloth Winder Machine Operator: [employer] agency manager Phone Number for Cloth Winder Machine Operator: [phone] Case Management Appointment Comment: agency manager will contact you to schedule initial appt Post Discharge Appointments Primary Care Physician Name Of Family Doctor/PCP: None
[2023-12-20 13:01] LABS: Chol HDL Ratio 4.2 (0-5)
--- NOTE | 2023-12-21 08:49 | Psychiatric Progress Note ---
Date of Service December 21, 2023 Impression / Recommendations Impression Clary Alaniz is a 28-year-old woman with a history of bipolar disorder, depression, anxiety who was brought in by sister for wandering outside barefoot and complaining of voices instructing self-harm in the context of recent methamphetamine use 4 days prior. She was admitted on 12/15/23 19:22 on a 201 voluntary commitment for psychosis. Diagnostically consistent with unspecified psychosis with differential including schizoaffective disorder vs bipolar affective disorder current mixed episode vs substance-induced psychosis given recent methamphetamine use prior to admission. A: Mood improving, improving behavioral and thought organization. Still with difficulty sleeping, discussed option to start clonidine which she consents to, reviewed risks/benefits/alternatives. Reviewed potential for low BP, rebound hypertension. She consents to taper of ativan, especially given substance use history and increasing gabapentin for off-label use for anxiety. Reviewed risks/benefits/alternatives. Reviewed side effects including but not limited to risk of fatal respiratory suppression if combined with alcohol/benzodiazepines,misuse potential. MNPR due to psychosis and irritability Overall, I spent a total of 35 minutes on this case including meeting with the patient, reviewing the chart, nursing report, multidisciplinary team meeting, orders, and documentation. (1) Schizoaffective disorder, bipolar type: (2) Acute psychosis: (3) Polysubstance abuse: (4) Methamphetamine use disorder, mild, in early remission, abuse: (5) Alcohol use disorder, mild, in early remission: (6) Suicidal ideation: (7) Acute UTI (urinary tract infection): (8) Vitamin D deficiency: Plan 12/21/2023: Decrease ativan to 0.5mg BID prn, discontinue scheduled ativan. Increase gabapentin to 300mg TID prn for anxiety. Start clonidine 0.1mg HS. 12/20/2023: Continue current medications and tx plan. 12/19/2023: Colace 100 mg twice daily. Continue medications and treatment plan. Pharmacy is out of stock of Invega Sustenna to 234mg. 12/18/2023: Continue medications and treatment plan. 12/17/2023: Start risperidone 1 mg every morning. Start Depakote 500 mg at bed time. Draw labs for: A1c, lipid, B12, vitamin D. 12/16/2023:The patient was admitted to the [facility] (locked inpatient mental health unit) on q15 min checks (behavioral with suicide precautions) for safety. The patient will participate in group, recreational, and milieu therapies and will be offered additional individual and family sessions as clinically appropriate. Risperidone 2 mg at bedtime Discontinue nightly diphenhydramine, start trazodone 100 mg at bedtime Lorazepam 1 mg at bedtime PRNs: Lorazepam 1 mg every 6 hours as needed for anxiety, olanzapine ODT 5 mg every 8 hours as needed for agitation - Start Keflex 500mg TID for 7 days - Start Vit D 5000u daily Inventory Assets Strengths: family support, housing Needs: medication management, outpatient connection Suicide Risk Level Suicide Risk Level: Moderate (q15 min suicide checks) (psychosis with SI prior to admission, but psychosis improving, denying SI, feels safe in the hospital) Risk Factors Assessment Male: No : Yes Do You Have Access To A Gun?: No Health Problems: No Mental Health Diagnoses: Yes Substance Use Disorders: Yes Previous Attempt: Yes Family History of Suicide: No Previous Psychiatric Hospitalization: Yes Hopelessness: Yes Protective Factors Assessment Confucianist Beliefs: No : No Responsible for Young Children: No Employed: No Stable Relationships: No Supportive Family: Yes Good Rapport with Provider: Yes Absence of Any Risk Factors Above: No Interval History Identifying Information Clary Alaniz is a 28-year-old woman with a history of bipolar disorder, depression, anxiety who was brought in by sister for wandering outside barefoot and complaining of voices instructing self-harm in the context of recent methamphetamine use 4 days prior. She was admitted on 12/15/23 19:22 on a 201 voluntary commitment for psychosis. Chief Complaint "Ok, just sleeping". Review of Systems Sleep Information Total Hours of Sleep: 7.5 Sleep Comments: HS Ativan, Risperdal and Trazadone Meal Information Percent Meal Consumed - Breakfast: 100 Percent Meal Consumed - Lunch: 75 Percent Meal Consumed - Dinner: 75 Subjective Subjective Patient was seen & assessed and interval progress reviewed with treatment team nursing and social work. She put in 72 hour notice yesterday which will on 12/22 at 1515. Typically low energy and irritable in the morning and then more participative and energetic in the evening. Got prn ativan yesterday evening. Today reports stable mood but slept poorly last night. Denies any side effects from her medications. She states she has been having trouble focusing and "the last doctor was going to start me on a stimulant". Reviewed that this is contraindicated at this time but that we could consider use of clonidine at HS to help with ADHD and insomnia which she would like to do. She is considering revoking her 72 hour notice. Physical Exam Psychiatric Orientation: alert and oriented x 3 Apperance: + disheveled Eye Contact: + fair eye contact Motor Behavior: no abnormal motor movements Speech: normal rate/rhythm/volume of speech Affect: + constricted affect Mood: + irritable mood Thought Process: + circumstantial thought process Thought Content: + preoccupation Suicidal Thoughts: denies suicidal thoughts Homicidal Thoughts: denies homicidal thoughts Insight: + limited insight Judgment: + limited judgement Vital Signs (Past 24 Hours) Last Vital Signs Temp 36.5 C 12/21/23 06:02 Pulse 83 12/21/23 06:03 Resp 18 12/21/23 06:02 BP 110/74 12/21/23 06:03 Pulse Ox 98 12/21/23 06:02 O2 Del Method Room Air 12/21/23 06:02 Results & Data ([facility]) Laboratory Results Laboratory Results - last 24 hr 12/20/23 10:34 Triglycerides 153 H Cholesterol 146 LDL Cholesterol, Calc 80 VLDL Cholesterol, Calc 31 H HDL Cholesterol 35 Cholesterol/HDL Ratio 4.2 Current Inpatient Medications Current Inpatient Medications: Current Inpatient Medications Acetaminophen (Acetaminophen 325 Mg Tab) 650 mg PO Q4H PRN PRN Reason: Headache or Minor Fever Stop: 01/14/24 19:31 Al Hydrox/Mg Hydrox/Simethicone (Aluminum/Magnesium Susp 30 Ml Udc) 30 ml PO Q4H PRN PRN Reason: GI Upset Stop: 01/14/24 19:31 Bismuth Subsalicylate (Bismuth Subsalicylate Liqd 236 Ml) 15 ml PO PRN PRN PRN Reason: Loose Stool Stop: 01/14/24 19:31 Cephalexin HCl (Cephalexin 500 Mg Cap) 500 mg PO QID [facility]; Protocol Stop: 12/21/23 15:14 Last Admin: 12/21/23 08:14 Dose: 500 mg Divalproex Sodium (Divalproex Extended Release 500 Mg Tab) 500 mg PO HS [facility] Stop: 01/16/24 21:59 Last Admin: 12/20/23 21:01 Dose: 500 mg Docusate Sodium (Docusate Sodium 100 Mg Cap) 100 mg PO BID [facility] Stop: 01/18/24 20:59 Last Admin: 12/21/23 08:14 Dose: 100 mg Gabapentin (Gabapentin 100 Mg Cap) 100 mg PO BID@0800,1400 [facility] Stop: 01/18/24 13:59 Last Admin: 12/21/23 08:14 Dose: 100 mg Lorazepam (Lorazepam 1 Mg Tab) 1 mg PO Q6 PRN PRN Reason: Anxiety Stop: 01/14/24 19:32 Last Admin: 12/20/23 15:20 Dose: 1 mg Lorazepam (Lorazepam 1 Mg Tab) 1 mg PO HS [facility] Stop: 01/15/24 21:59 Last Admin: 12/20/23 21:01 Dose: 1 mg Magnesium Hydroxide (Magnesium Hydroxide Susp 30 Ml Udc) 30 ml PO DAILY PRN PRN Reason: Constipation Stop: 01/14/24 19:31 Last Admin: 12/18/23 18:51 Dose: 30 ml Miscellaneous (Remove Nicoderm Patch) 1 each N/A DAILY@0859 [facility] Stop: 01/15/24 10:28 Last Admin: 12/21/23 08:17 Dose: Not Given Nicotine (Nicotine 21 Mg/24 Hr Tdsy) 1 patch TD QAM [facility] Stop: 01/15/24 10:29 Last Admin: 12/21/23 08:15 Dose: 1 patch Nicotine Polacrilex (Nicotine Polacrilex 2 Mg Gum) 1 piece MT PRN PRN PRN Reason: Smoking Cessation Stop: 01/16/24 18:02 Last Admin: 12/20/23 17:20 Dose: 1 piece Olanzapine (Olanzapine 5 Mg Tablet) 5 mg PO Q8 PRN PRN Reason: Agitation Stop: 01/14/24 19:32 Risperidone (Risperidone 2 Mg Tablet) 2 mg PO HS [facility] Stop: 01/14/24 21:59 Last Admin: 12/20/23 21:01 Dose: 2 mg Risperidone (Risperidone 1 Mg Tablet) 1 mg PO QAM [facility] Stop: 01/17/24 08:59 Last Admin: 12/21/23 08:14 Dose: 1 mg Sodium Chloride (Sodium Chloride 0.65% Na Soln 45 Ml ([place])) 2 sprays NA PRN PRN PRN Reason: Nasal Dryness/Congestion Stop: 01/14/24 19:31 Trazodone HCl (Trazodone Hcl 100 Mg Tab) 100 mg PO HS [facility] Stop: 01/15/24 21:59 Last Admin: 12/20/23 21:01 Dose: 100 mg Vitamin D (Cholecalciferol 125 Mcg (5,000 Units) Tab) 125 mcg PO QAM [facility] Stop: 01/15/24 15:14 Last Admin: 12/21/23 08:14 Dose: 125 mcg Mental Health & Subst Abuse Tx Psychiatrist Name of Psychiatrist: [facility] Psychiatrist's Date Of Appointment With Psychiatric Provider: 12/30/23 - Friday Time of Appointment with Psychiatrist: 11AM Psychiatric Appointment Comment: Will be seen by psychiatrist after appt with therapist Therapist Name of Therapist: [facility] Therapist's Date of Therapist Appointment: On waitlist - staff will reach out when spot opens Manager Transplant Name of Manager Transplant: [employer] manager continuous improvement Phone Number for Manager Transplant: [phone] Case Management Appointment Comment: manager continuous improvement will contact you to schedule initial appt Post Discharge Appointments Primary Care Physician Name Of Family Doctor/PCP: Vikas
[2023-12-21] MEDS ORDERED: LORazepam 0.5 MG TAB PO PRN (08:50)
[2023-12-21] MEDS: GABAPENTIN 300 MG CAP PO PRN (13:24)
[2023-12-21] MEDS: cloNIDine HCL 0.1 MG TAB PO SCH (20:31)
--- NOTE | 2023-12-22 08:59 | Psychiatric Progress Note ---
Date of Service December 22, 2023 Impression / Recommendations Impression Clary Alaniz is a 28-year-old woman with a history of bipolar disorder, depression, anxiety who was brought in by sister for wandering outside barefoot and complaining of voices instructing self-harm in the context of recent methamphetamine use 4 days prior. She was admitted on 12/15/23 19:22 on a 201 voluntary commitment for psychosis. Diagnostically consistent with unspecified psychosis with differential including schizoaffective disorder vs bipolar affective disorder current mixed episode vs substance-induced psychosis given recent methamphetamine use prior to admission. A: Mood continues to improve, no evidence of psychosis, hypersomnolence lessening, sleep improving. She continues to decline [facility]EL[facility] option. MNPR due to recent psychosis and irritability Overall, I spent a total of 25 minutes on this case including meeting with the patient, reviewing the chart, nursing report, multidisciplinary team meeting, orders, and documentation. (1) Schizoaffective disorder, bipolar type: (2) Acute psychosis: (3) Polysubstance abuse: (4) Methamphetamine use disorder, mild, in early remission, abuse: (5) Alcohol use disorder, mild, in early remission: (6) Suicidal ideation: (7) Acute UTI (urinary tract infection): (8) Vitamin D deficiency: Plan 12/22/2023: Discontinue ativan. 12/21/2023: Decrease ativan to 0.5mg BID prn, discontinue scheduled ativan. Increase gabapentin to 300mg TID prn for anxiety. Start clonidine 0.1mg HS. 12/20/2023: Continue current medications and tx plan. 12/19/2023: Colace 100 mg twice daily. Continue medications and treatment plan. Pharmacy is out of stock of Invega Sustenna to 234mg. 12/18/2023: Continue medications and treatment plan. 12/17/2023: Start risperidone 1 mg every morning. Start Depakote 500 mg at bedtime. Draw labs for: A1c, lipid, B12, vitamin D. 12/16/2023:The patient was admitted to the [facility]) on q15 min checks (behavioral with suicide precautions) for safety. The patient will participate in group, recreational, and milieu therapies and will be offered additional individual and family sessions as clinically appropriate. Risperidone 2 mg at bedtime Discontinue nightly diphenhydramine, start trazodone 100 mg at bedtime Lorazepam 1 mg at bedtime PRNs: Lorazepam 1 mg every 6 hours as needed for anxiety, olanzapine ODT 5 mg every 8 hours as needed for agitation - Start Keflex 500mg TID for 7 days - Start Vit D 5000u daily Inventory Assets Strengths: family support, housing Needs: medication management, outpatient connection Suicide Risk Level Suicide Risk Level: Moderate (q15 min suicide checks) (psychosis with SI prior to admission, but psychosis improving, denying SI, feels safe in the hospital) Risk Factors Assessment Male: No : Yes Do You Have Access To A Gun?: No Health Problems: No Mental Health Diagnoses: Yes Substance Use Disorders: Yes Previous Attempt: Yes Family History of Suicide: No Previous Psychiatric Hospitalization: Yes Hopelessness: Yes Protective Factors Assessment Church Beliefs: No : No Responsible for Young Children: No Employed: No Stable Relationships: No Supportive Family: Yes Good Rapport with Provider: Yes Absence of Any Risk Factors Above: No Interval History Identifying Information Clary Alaniz is a 28-year-old woman with a history of bipolar disorder, depression, anxiety who was brought in by sister for wandering outside barefoot and complaining of voices instructing self-harm in the context of recent methamphetamine use 4 days prior. She was admitted on 12/15/23 19:22 on a 201 voluntary commitment for psychosis. Chief Complaint "Fine, tired". Review of Systems Sleep Information Total Hours of Sleep: 7.5 Sleep Comments: Meal Information Percent Meal Consumed - Breakfast: 75 Percent Meal Consumed - Lunch: 100 Percent Meal Consumed - Dinner: 100 Subjective Subjective Patient was seen & assessed and interval progress reviewed with treatment team nursing and social work. Attended evening groups. Had prn gabapentin yesterday mid-day, did not request any other prns. She rescinded her 72 hour notice. Reported her mood as "stressed" yesterday evening. Up this morning for her morning medications. Slept for 8 hours. Today reports her mood is "fine" but also "tired". She feels the clonidine adju stment helped sleep but that she doesn't sleep well here. Denies any medication side effects or concerns. Not requiring ativan. Finds gabapentin helpful for anxiety when she uses this. Physical Exam Psychiatric Orientation: alert and oriented x 3 Apperance: appropriately dressed Eye Contact: good eye contact Motor Behavior: no abnormal motor movements Speech: normal rate/rhythm/volume of speech Affect: + constricted affect Mood: no depressed mood, no anxious mood and no irritable mood Thought Process: goal directed thought process Thought Content: reality based without delusions Suicidal Thoughts: denies suicidal thoughts Homicidal Thoughts: denies homicidal thoughts Insight: + limited insight Judgment: + limited judgement Vital Signs (Past 24 Hours) Last Vital Signs Temp 36.2 C L 12/22/23 06:31 Pulse 89 12/22/23 06:31 Resp 18 12/22/23 06:31 BP 101/58 L 12/22/23 06:31 Pulse Ox 98 12/22/23 06:31 O2 Del Method Room Air 12/22/23 06:31 Results & Data ([facility]) Current Inpatient Medications Current Inpatient Medications: Current Inpatient Medications Acetaminophen (Acetaminophen 325 Mg Tab) 650 mg PO Q4H PRN PRN Reason: Headache or Minor Fever Stop: 01/14/24 19:31 Al Hydrox/Mg Hydrox/Simethicone (Aluminum/Magnesium Susp 30 Ml Udc) 30 ml PO Q4H PRN PRN Reason: GI Upset Stop: 01/14/24 19:31 Bismuth Subsalicylate (Bismuth Subsalicylate Liqd 236 Ml) 15 ml PO PRN PRN PRN Reason: Loose Stool Stop: 01/14/24 19:31 Clonidine HCl (Clonidine Hcl 0.1 Mg Tab) 0.1 mg PO [facility] Stop: 01/20/24 21:59 Last Admin: 12/21/23 20:31 Dose: 0.1 mg Divalproex Sodium (Divalproex Extended Release 500 Mg Tab) 500 mg PO [facility] Stop: 01/16/24 21:59 Last Admin: 12/21/23 20:32 Dose: 500 mg Docusate Sodium (Docusate Sodium 100 Mg Cap) 100 mg PO BID [facility] Stop: 01/18/24 20:59 Last Admin: 12/22/23 08:03 Dose: Not Given Gabapentin (Gabapentin 300 Mg Cap) 300 mg PO TID PRN PRN Reason: restlessness/anxiety Stop: 01/20/24 08:59 Last Admin: 12/21/23 13:24 Dose: 300 mg Hydroxyzine HCl (Hydroxyzine Hcl 25 Mg Tab) 25 mg PO QID PRN PRN Reason: Anxiety Stop: 01/20/24 08:51 Lorazepam (Lorazepam 0.5 Mg Tab) 0.5 mg PO BID PRN PRN Reason: Anxiety Stop: 01/15/24 13:23 Magnesium Hydroxide (Magnesium Hydroxide Susp 30 Ml Udc) 30 ml PO DAILY PRN PRN Reason: Constipation Stop: 01/14/24 19:31 Last Admin: 12/21/23 19:12 Dose: 30 ml Miscellaneous (Remove Nicoderm Patch) 1 each N/A DAILY@0859 [facility] Stop: 01/15/24 10:28 Last Admin: 12/22/23 08:00 Dose: 1 each Nicotine (Nicotine 21 Mg/24 Hr Tdsy) 1 patch TD QAM [facility] Stop: 01/15/24 10:29 Last Admin: 12/22/23 08:00 Dose: 1 patch Nicotine Polacrilex (Nicotine Polacrilex 2 Mg Gum) 1 piece MT PRN PRN PRN Reason: Smoking Cessation Stop: 01/16/24 18:02 Last Admin: 12/21/23 15:57 Dose: 1 piece Olanzapine (Olanzapine 5 Mg Tablet) 5 mg PO Q8 PRN PRN Reason: Agitation Stop: 01/14/24 19:32 Risperidone (Risperidone 2 Mg Tablet) 2 mg PO HS [facility] Stop: 01/14/24 21:59 Last Admin: 12/21/23 20:32 Dose: 2 mg Risperidone (Risperidone 1 Mg Tablet) 1 mg PO QAM [facility] Stop: 01/17/24 08:59 Last Admin: 12/22/23 08:01 Dose: 1 mg Sodium Chloride (Sodium Chloride 0.65% Na Soln 45 Ml (Hunt)) 2 sprays NA PRN PRN PRN Reason: Nasal Dryness/Congestion Stop: 01/14/24 19:31 Trazodone HCl (Trazodone Hcl 100 Mg Tab) 100 mg PO HS [facility] Stop: 01/15/24 21:59 Last Admin: 12/21/23 20:32 Dose: 100 mg Vitamin D (Cholecalciferol 125 Mcg (5,000 Units) Tab) 125 mcg PO QAM [facility] Stop: 01/15/24 15:14 Last Admin: 12/22/23 08:01 Dose: 125 mcg Mental Health & Subst Abuse Tx Psychiatrist Name of Psychiatrist: [facility] Psychiatrist's Date Of Appointment With Psychiatric Provider: 12/30/23 - Friday Time of Appointment with Psychiatrist: 11AM Psychiatric Appointment Comment: Will be seen by psychiatrist after appt with therapist Therapist Name of Therapist: [facility] Therapist's Date of Therapist Appointment: On waitlist - staff will reach out when spot opens Manager Ethics Name of Manager Ethics: [employer] manager cardiac cath Phone Number for Manager Ethics: [phone] Case Management Appointment Comment: manager cardiac cath will contact you to schedule initial appt Post Discharge Appointments Primary Care Physician Name Of Family Doctor/PCP: Vikas
[2023-12-22] MEDS: hydrOXYzine HCl 25 MG TAB PO PRN (17:48)
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
[2023-12-23] MEDS: PROPRANOLOL HCL 10 MG TAB PO SCH (12:52)
== END 2023-12-23 15:46 | disposition home or self-care (01) | DRG 885 ==
LOC: ED 11:35 → 3S 19:14 → SUATTDRO 19:22 → 3S 19:22

== ENCOUNTER 2023-12-31 20:58 | Inpatient (IN) ==
--- NOTE | 2023-12-31 21:19 | Emergency Department Note ---
Impression & Plan Verbalizes suicidal thoughts, UTI (urinary tract infection), Psychosis ED Provider Note Provider: Pal Rodriguez MD DATE OF SERVICE: 12/31/2023 CHIEF COMPLAINT: Mental health evaluation HISTORY OF PRESENT ILLNESS: Patient is a 28-year-old female history of schizoaffective disorder as well as methamphetamine use presenting here today via ambulance. Patient recent inpatient stay here on [facility] just over a week ago. Reports that for the last several days she has not been sleeping. Did 3 to 4 days ago utilize some meth but she does not think that is related to her current status. States that she is having thoughts last several days just pacing and moving around and not sleeping and thinking that she wants to kill herself. States she thought this evening of wanting to overdose on Tylenol PM thus came here for evaluation. Patient states she did not attempt to harm herself in any way but has had these thoughts. Wishes for inpatient treatment. States he is staying with her sister but feels it is becoming frustrated situation as she is constantly walking her sister asked to come get her. Denies any homicidal ideations. States she does have some visual and auditory hallucinations. States she has been taking her medications but not today. Denies any alcohol use. No trauma reported. PAST MEDICAL HISTORY: As noted above MEDICATIONS: Reviewed home medications. SOCIAL HISTORY: No alcohol use or recent tobacco use reported. Has used meth several days ago. PHYSICAL EXAM: GENERAL: alert and oriented pacing and antsy in the room. Head: normocephalic and atraumatic EYES: No injection, discharge or icterus. EOMI. NECK: Trachea midline. ENT: Mucous membranes pink and moist. LUNGS: Airway patent. No retractions. Breath sounds clear with good air entry bilaterally. HEART: Regular rate and rhythm. No chest wall tenderness SKIN: Acyanotic, warm, dry, without rashes EXTREMITIES: Without swelling, tenderness or deformity NEUROLOGICAL: No focal deficits. No aphasia. No facial droop or slurred speech. Ambulatory. Psych: Patient endorses SI with plan to possibly overdose on Tylenol PM. Patient with pressured speech and responding to external stimuli looking around the room during exam. Patient's laboratory studies and imaging reviewed. Differential includes Mood disorder, infection, hypoglycemia, electrolyte abnormalities, cardiac sources, intracerebral event, toxicologic, trauma, neurologic, as well as other pathologies. IMPRESSION/MEDICAL DECISION MAKING: History of psychiatric disorder as well as polysubstance abuse and methamphetamine abuse in the past. Reports SI. Does appear somewhat manic with pressured speech and reports hallucinations. Denies any HI but does report SI although states she has not acted on this. Basic blood work obtained. Chronic leukocytosis similar to previous without other infectious findings reported or fever. No other significant electrolyte abnormality signs of renal dysfunction or liver dysfunction on testing. Some urinary frequency but denies burning. Given the questionable UA we will treat with Macrobid. Macrobid twice daily for 5-day ordered to treat UTI. Seen with psychiatric case picker. Given all Ativan given that she seems anxious and pacing in the room; patient refused this. Question what component of this could be substance related versus her underlying psychiatric conditions. Did review prior discharge summary from psychiatry here just over a week ago. Referrals for inpatient care made. Patient was accepted to [facility] for further inpatient psychiatric care here. DIAGNOSIS: Suicidal thoughts, psychosis, UTI DISPOSITION: Accepted to [facility] for further inpatient care. Past Med/Surg History Problem List (Updated 01/01/24 @ 00:41 by Pal Rodriguez M.D.) Psychosis (Acute) UTI (urinary tract infection) (Acute) Verbalizes suicidal thoughts (Acute) Schizoaffective disorder, bipolar type Methamphetamine use disorder, mild, in early remission, abuse Bipolar 1 disorder, mixed, severe Anxiety HTN (hypertension) Medical History (Updated 01/01/24 @ 00:41 by Pal Rodriguez M.D.) Acute psychosis Acute UTI (urinary tract infection) Depression Suicidal ideation Alcohol use disorder, mild, in early remission Vitamin D deficiency Cholelithiasis Surgical History (System 11/25/23 @ 10:37 by Monse Smith) S/P laparoscopic cholecystectomy 10/27/17 H/O wisdom tooth extraction Family History (System 11/25/23 @ 10:37 by Monse Smith) Mother Anxiety Depression Grandmother (Maternal) Hypertension Denies family history of Ovarian cancer Prostate cancer Myocardial infarction Breast cancer Colorectal cancer Social History (System 11/25/23 @ 10:37 by Monse Smiht) Smoking Status: Never smoker Tobacco Type: Cigarettes Age Started Using Tobacco: 19; packs per day: 0.5; Second Hand Exposure: Yes; Hx Alcohol Use: Yes Hx Substance Use: No Preferred Language: Ukrainian Visual Impairment: No Limitations Hearing Ability: Normal Physical Therapist Center Manager Required: No Beliefs That Will Affect Care: None marital status: Single Current Living Situation Comment: lives with daughter current occupational status: employed current occupation: parttime; [employer] Patient Feels Safe at Home: Yes Dental Care, Regularly: Yes Physical Activity Frequency: 1-2 Times per Week Gender Identity: Female Assistive Devices: None Allergies Allergies Allergy/AdvReac Type Severity Reaction Status Date / Time No Known Drug Allergies Allergy Verified 11/25/23 10:37 Home Meds Previous Rx's Medication Instructions Recorded cholecalciferol (vitamin D3) 125 125 mcg PO QAM 30 days #30 tabs 12/23/23 mcg (5,000 unit) tablet clonidine HCl 0.1 mg tablet 0.1 mg PO HS ADHD 30 days #30 tabs 12/23/23 divalproex 500 mg tablet,extended 500 mg PO HS 30 days #30 tabs 12/23/23 release 24 hr gabapentin 300 mg capsule 300 mg PO TID PRN anxiety 30 days 12/23/23 #90 caps hydroxyzine HCl 25 mg tablet 25 mg PO QID PRN anxiety/insomnia 12/23/23 30 days #60 tabs propranolol 10 mg tablet 10 mg PO BID akathisia 30 days #60 12/23/23 tabs risperidone 1 mg tablet 1 mg PO QAM 30 days #30 tabs 12/23/23 risperidone 2 mg tablet 2 mg PO HS 30 days #30 tabs 12/23/23 trazodone 100 mg tablet 100 mg PO HS 30 days #30 tabs 12/23/23 Results & Data (ED) Vital Signs Vital Signs - 24 hr 12/31/23 21:20 12/31/23 22:48 Temperature 36.5 C Temperature Source Oral Pulse Rate 91 H Respiratory Rate 18 Respiratory Effort / Characteristics Non-Labored Spontaneous Non-Labored Respiratory Depth Normal Normal Respiratory Pattern Regular Blood Pressure 115/76 Blood Pressure Mean 89 Pulse Oximetry 99 Oxygen Delivery Method Room Air Sepsis Recent Fever Within 48 Hours No Sepsis New/Unexplained Change in Mental Status N/A Sepsis Action Taken by Nursing No Action Required Laboratory Data 12/31/23 21:13 12/31/23 21:13 Lab Results 12/31/23 12/31/23 12/31/23 Range/Units 21:07 21:13 21:22 WBC 14.18 H (4.8-10.8) K/ul RBC 5.20 (4.20-5.40) M/uL Hgb 15.0 (12.0-16.0) g/dl Hct 45.6 (37.0-47.0) % MCV 87.7 (80.0-100.0) fL MCH 28.8 (25.0-34.0) pg MCHC 32.9 (32.0-36.0) g/dL RDW Std Deviation 39.4 (36.4-46.3) fL RDW Coeff of Judith 12.4 (11.5-14.5) % Plt Count 330 (130-400) K/uL MPV 10.3 (9.4-12.4) fL Immature Gran % (Auto) 0.4 % Neut % (Auto) 77.5 % Lymph % (Auto) 14.2 % Sabine % (Auto) 6.8 % Eos % (Auto) 0.8 % Baso % (Auto) 0.3 % Neut # (Auto) 11.00 H (1.40-6.50) K/uL Lymph # (Auto) 2.02 (1.20-3.40) K/uL Sabine # (Auto) 0.96 H (0.11-0.59) K/uL Eos # (Auto) 0.11 (0.00-0.50) K/uL Baso # (Auto) 0.04 (0.00-0.20) K/uL Immature Gran # (Auto) 0.05 (0.01-0.20) K/uL Sodium 137 (136-145) mmol/L Potassium 3.6 (3.5-5.1) mmol/L Chloride 102 (98-107) mmol/L Carbon Dioxide 23 (21-32) mmol/L Anion Gap 12 H (3-11) BUN 16 (6-23) mg/dl Creatinine 0.80 (0.6-1.2) mg/dl Est Cr Clr Drug Dosing 113.2 ml/min Est GFR ( Amer) 114.7 ml/min Est GFR (Non-Af Amer) 98.9 ml/min BUN/Creatinine Ratio 20.0 (10-20) Glucose 72 (70-99(Fasting)) mg/dl Calcium 9.3 (8.6-10.3) mg/dl Total Bilirubin 0.6 (0.2-1.0) mg/dl AST 26 (13-39) U/L ALT 21 (7-52) U/L Alkaline Phosphatase 63 (34-104) U/L Total Protein 8.1 (6.0-8.3) gm/dl Albumin 4.9 (3.4-5.0) gm/dl Globulin 3.2 (2.5-4.0) gm/dl Albumin/Globulin Ratio 1.5 (0.9-2) TSH 2.547 (0.300-4.500) uIu/ml Urine Color Yellow Urine Appearance Turbid A (Clear) Urine pH 5.5 (4.5-7.5) Ur Specific Saxon 1.028 (1.000-1.030) Urine Protein 2+ H (Negative) Urine Glucose (UA) Negative (Negative) Urine Ketones 4+ H (Negative) Urine Blood 3+ H (Negative) Urine Nitrite Negative (Negative) Urine Bilirubin Negative (Negative) Urine Urobilinogen Negative (Negative) Ur Leukocyte Esterase 2+ H (Negative) Urine WBC (Auto) >50 H (0-5) /hpf Urine RBC (Auto) >20 H (0-2) /hpf U Hyaline Cast (Auto) 3-5 H (0-2) /lpf U Epithel Cells (Auto) 11-20 H (0-2) /hpf Urine Bacteria (Auto) 2+ H (None Seen) POC Ur Test NEG (NEG) Salicylates < 3.0 L (3.0-30) mg/dl Urine Opiates Screen Neg (Neg) Ur Methadone, Qual Neg (Neg) Urine Fentanyl Screen Neg (Neg) Acetaminophen < 3 L (10-30) ug/ml Urine Barbiturates Neg (Neg) Valproic Acid < 10 L (50-100) mcg/ml Ur Phencyclidine (PCP) Neg (Neg) U Amphetamin/Meth Scrn Pos H (Neg) MDMA (Ecstasy) Screen Pos H (Neg) U Benzodiazepines Scrn Neg (Neg) Ur Cocaine Metabolite Neg (Neg) U Marijuana (THC) Screen Neg (Neg) Ethyl Alcohol mg/dL < 10.0 (<10.0) mg/dl SARS-CoV-2, RNA, NAAT NEGATIVE (NEGATIVE) Administered Medications Discontinued Medications Lorazepam (Lorazepam 1 Mg Tab) 1 mg PO NOW STA Stop: 12/31/23 21:32 Last Admin: 12/31/23 22:20 Dose: 1 mg Documented By: CARLOS Nitrofurantoin Macrocrystals (Nitrofurantoin Monohydrate 100 Mg Cap) 100 mg PO NOW STA Stop: 12/31/23 22:16 Last Admin: 12/31/23 22:20 Dose: 100 mg Documented By: CARLOS Discharge Plan Visit Data Chief Complaint: Mental Health Evaluation Stated Complaint: [facility] ED Provider: Pal Rodriguez Discharge Problem: Verbalizes suicidal thoughts, UTI (urinary tract infection), Psychosis Patient Disposition: Admitted As Inpatient Forms Stand Alone Forms: [facility], Suicide Prevention Resources Prescriptions Prescriptions: No Action clonidine HCl 0.1 mg Tablet 0.1 mg PO HS 30 Days Qty: 30 0RF risperidone 2 mg Tablet 2 mg PO HS 30 Days Qty: 30 0RF propranolol 10 mg Tablet 10 mg PO BID 30 Days Qty: 60 0RF trazodone 100 mg Tablet 100 mg PO HS 30 Days Qty: 30 0RF divalproex 500 mg Tablet Extended Release 24 Hr 500 mg PO HS 30 Days Qty: 30 0RF gabapentin 300 mg Capsule 300 mg PO TID PRN (Reason: anxiety) 30 Days Qty: 90 0RF hydroxyzine HCl 25 mg Tablet 25 mg PO QID PRN (Reason: anxiety/insomnia) 30 Days Qty: 60 0RF risperidone 1 mg Tablet 1 mg PO QAM 30 Days Qty: 30 0RF cholecalciferol (vitamin D3) 125 mcg (5,000 unit) Tablet 125 mcg PO QAM 30 Days Qty: 30 0RF Referrals Referrals: PCP,NO [Primary Care Provider] -
[2023-12-31] MEDS: LORazepam 1 MG TAB PO STA (21:40)
[2023-12-31 21:41] LABS: Basophils # (auto) 0.04 K/uL (0.00-0.20); Basophils % (auto) 0.3 %; Eosinophils # (auto) 0.11 K/uL (0.00-0.50); Eosinophils % (auto) 0.8 %; Hematocrit (blood only) 45.6 % (37.0-47.0); Immature Granulocytes # (auto) 0.05 K/uL (0.01-0.20); Immature Granulocytes % (auto) 0.4 %; Lymphocytes # (auto) 2.02 K/uL (1.20-3.40); Lymphocytes % (auto) 14.2 %; Mean Corpuscular Hemoglobin 28.8 pg (25.0-34.0); Mean Corpuscular Hgb Conc 32.9 g/dL (32.0-36.0); Mean Corpuscular Volume 87.7 fL (80.0-100.0); Mean Platelet Volume 10.3 fL (9.4-12.4); Monocytes # (auto) 0.96 K/uL (0.11-0.59); Monocytes % (auto) 6.8 %; Neutrophils % (auto) 77.5 %; Platelet Count 330 K/uL (130-400); RDW Coefficient of Variation 12.4 % (11.5-14.5); RDW Standard Deviation 39.4 fL (36.4-46.3); White Blood Count 14.18 K/ul (4.8-10.8)
[2023-12-31 21:51] LABS: Albumin Globulin Ratio 1.5 (0.9-2); Albumin Level 4.9 gm/dl (3.4-5.0); Bilirubin,Total 0.6 mg/dl (0.2-1.0); Calcium 9.3 mg/dl (8.6-10.3); Creatinine Clr Calc Pharmacy 113.2 ml/min; Est GFR (African American) 114.7 ml/min; Est GFR (Non-African American) 98.9 ml/min; Globulin 3.2 gm/dl (2.5-4.0); Potassium 3.6 mmol/L (3.5-5.1); Total Protein 8.1 gm/dl (6.0-8.3)
[2023-12-31 21:56] LABS: Appearance Urine Turbid (Clear); Bacteria Urine Automated 2+ (None Seen); Bilirubin Urine Negative (Negative); Blood Urine 3+ (Negative); Color Urine Yellow; Glucose Urine UA Negative (Negative); Ketones Urine 4+ (Negative); Leukocyte Esterase Urine 2+ (Negative); Nitrite Urine Negative (Negative); Protein Urine 2+ (Negative); RBC Urine Automated >20 /hpf (0-2); Specific Gravity Urine 1.028 (1.000-1.030); Urobilinogen Urine Negative (Negative); WBC Urine Automated >50 /hpf (0-5); pH Urine 5.5 (4.5-7.5)
[2023-12-31 21:59] LABS: Acetaminophen < 3 ug/ml (10-30); Salicylate < 3.0 mg/dl (3.0-30)
[2023-12-31 22:06] LABS: Thyroid Stimulating Hormone 2.547 uIu/ml (0.300-4.500)
[2023-12-31 22:16] LABS: Amphetamines+Metham, Urine Pos (Neg); Barbiturates, Urine Neg (Neg); Benzodiazepine, Urine Neg (Neg); Cocaine, Urine Neg (Neg); Fentanyl, Urine Neg (Neg); MDMA (Ecstacy), Urine Pos (Neg); Marijuana, Urine Neg (Neg); Methadone, Urine Neg (Neg); Opiate, Urine Neg (Neg); Phencyclidine, Urine Neg (Neg)
[2023-12-31] MEDS: NITROFURANTOIN MONOHYDRATE 100 MG CAP PO STA (22:20)
[2024-01-01] MEDS ORDERED: hydrOXYzine HCl 25 MG TAB PO PRN (01:14)
[2024-01-01] MEDS ORDERED: ALUMINUM/MAGNESIUM SUSP 30 ML UDC PO PRN (01:14)
[2024-01-01] MEDS ORDERED: SODIUM CHLORIDE 0.65% NA SOLN 45 ML (OCEAN) PRN (01:14)
[2024-01-01] MEDS ORDERED: BISMUTH SUBSALICYLATE LIQD 236 ML PO PRN (01:14)
[2024-01-01] MEDS: NITROFURANTOIN MONOHYDRATE 100 MG CAP PO SCH (08:32)
[2024-01-01] MEDS: CHOLECALCIFEROL 125 MCG (5,000 UNITS) TAB PO SCH (08:32)
[2024-01-01] MEDS: PROPRANOLOL HCL 10 MG TAB PO SCH (08:45)
[2024-01-01] MEDS: risperiDONE 1 MG TABLET PO SCH (08:45)
[2024-01-01] MEDS: LORazepam 1 MG TAB PO PRN (11:07)
[2024-01-01] MEDS: NICOTINE 14 MG/24 HR PATCH TD SCH (11:34)
[2024-01-01] MEDS ORDERED: NICOTINE POLACRILEX 2 MG GUM MT PRN (12:00)
[2024-01-01] MEDS: ACETAMINOPHEN 325 MG TAB PO PRN (12:19)
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
[2024-01-01] MEDS: NICOTINE POLACRILEX 2 MG GUM MT PRN (20:12)
[2024-01-01] MEDS: DIVALPROEX EXTENDED RELEASE 500 MG TAB PO SCH (21:58)
[2024-01-01] MEDS: cloNIDine HCL 0.1 MG TAB PO SCH (21:58)
[2024-01-01] MEDS: traZODone HCL 100 MG TAB PO SCH (21:59)
[2024-01-01] MEDS: risperiDONE 2 MG TABLET PO SCH (21:59)
[2024-01-02] MEDS: MAGNESIUM HYDROXIDE SUSP 30 ML UDC PO PRN (13:29)
[2024-01-02] MEDS ORDERED: BENZTROPINE MESYLATE 1 MG/ML 2 ML AMP IM PRN (13:48)
[2024-01-02] MEDS ORDERED: OLANZapine 10 MG/2.1 ML SDV IM PRN (13:48)
[2024-01-02] MEDS ORDERED: BENZTROPINE MESYLATE 1 MG TAB PO PRN (13:48)
--- NOTE | 2024-01-02 13:48 | Psychiatric Progress Note ---
Date of Service January 02, 2024 Impression / Recommendations Impression Clary Alaniz is a unemployed, domiciled with sister 28-year-old white female history of schizoaffective disorder, bipolar type, methamphetamine use disorder who presents with suicidal ideation with plan to overdose in the context recent methamphetamine abuse, medication non-adherence, restleness and pacing, decreased need for sleep. Complaints of auditory visual hallucinations. Pt was recently discharged from the hospital on 12/23/23 for a similar presentation and did not follow-up with outpatient care. She was admitted on 01/01/24 00:25 on a 201 voluntary commitment for suicidal ideation. Initial presentation included symptoms of restlessness, hyperactivitiy, command and auditory hallucinations, responding to internal stimuli, disorganized thought process. Recent decompensation likely due to medication non-adherence, methamphetamine intoxication. Patient is acutely psychotic with concerns for auditory and command hallucinations and persecutory and control delusions. Today she appears less restless. Appears to be tolerating the medications well and will plan to continue and monitor for improvement. Today will optimize her Depakote dose for mood stability. Would benefit from a long-acting injection prior to discharge given recurrent hospitalizations and medication nonadherence. Continue UTI treatment. MNPR due to psychosis, restlessness Overall, I spent a total of 35 minutes with this case including review of chart records, nursing report, review of lab work, direct evaluation of the patient at bedside, counseling the patient, multidisciplinary team meeting, orders, and documentation in the electronic health record. (1) Acute psychosis: (2) Verbalizes suicidal thoughts: (3) Schizoaffective disorder, bipolar type: (4) Methamphetamine dependence, continuous: (5) Alcohol use disorder, mild, in early remission: (6) UTI (urinary tract infection): (7) Vitamin D deficiency: Plan 01/02/2024: Increase Depakote ER to 1000 mg at bedtime. 01/01/2024:The patient was [facility]) on q15 min checks (behavioral with suicide precautions) for safety. The patient will participate in group, recreational, and milieu therapies and will be offered additional individual and family sessions as clinically appropriate. -Restart psychiatric medications (Risperidone 1mg QAM, 2mg HS; Clonidine 1mg HS; Propranolol 10mg BID; Trazodone 100mg HS; Vit D 5000u daily; Depakote ER 500mg HS; Gabapentin 300mg TID PRN) -Continue Macrobid BID 5 days for UTI Inventory Assets Strengths: family support, willing to get treatment Needs: insight, outpatient connection Suicide Risk Level Suicide Risk Level: Moderate (q15 min suicide checks) Risk Factors Assessment Male: No : Yes Do You Have Access To A Gun?: No Health Problems: No Mental Health Diagnoses: Yes Substance Use Disorders: Yes Previous Attempt: Yes Family History of Suicide: No Previous Psychiatric Hospitalization: Yes Hopelessness: No Protective Factors Assessment Sikh Beliefs: No : No Responsible for Young Children: No Employed: No Stable Relationships: No Supportive Family: No Good Rapport with Provider: Yes Absence of Any Risk Factors Above: No Interval History Identifying Information Clary Alaniz is a unemployed, domiciled with sister 28-year-old white female history of schizoaffective disorder, bipolar type, methamphetamine use disorder who presents with suicidal ideation with plan to overdose in the context recent methamphetamine abuse, medication non-adherence, restleness and pacing, decreased need for sleep. Complaints of auditory visual hallucinations. Pt was recently discharged from the hospital on 12/23/23 for a similar presentation and did not follow-up with outpatient care. She was admitted on 01/01/24 00:25 on a 201 voluntary commitment for suicidal ideation. Chief Complaint "Not very good, I am not going to walk 200 days" Review of Systems Sleep Information Total Hours of Sleep: 7.25 Sleep Comments: Trazodone Meal Information Percent Meal Consumed - Breakfast: 100 Percent Meal Consumed - Lunch: 100 Percent Meal Consumed - Dinner: 25 Subjective Subjective Patient was seen & assessed and interval progress reviewed with treatment team nursing and social work Nursing reported the patient slept 7.5 hours. Was restless yesterday and was seen responding to internal stimuli. On interview the patient reports sleeping well. She rates a poor mood. She denies hearing voices. Appears irritable. Complains that government is telling her to "walk 200 days" and that she is not going to do it. She appears distraught and says that she is tired of being homeless and feeling trapped. When asking about this individual she is not able to identify him but says that it is "the abhishek in the government who tells everyone what to do". "He keeps getting me into trouble accusing me of doing things". She reports he tells her not to eat to be around people or to do anything. Says "he communicates through my body". She denies him having a name. Says nothing will make this better and medications don't work. Physical Exam Mental Examination Appearance: Disheveled Eye Contact: Sporadic Contact Motor Behavior: Restless Speech: Disorganized and Circumstantial Mood: Dyphoric Affect: Congruent Thought Process: Circumstantial and Disoriented Thought Content: Circumstantial Hallucinations: Auditory and Command Insight: Poor Judgement: Poor Vital Signs (Past 24 Hours) Last Vital Signs Temp 36.7 C 01/02/24 06:50 Pulse 76 01/02/24 06:51 Resp 16 01/02/24 06:50 BP 105/74 01/02/24 06:51 Pulse Ox 99 01/01/24 01:54 O2 Del Method Room Air 01/01/24 01:54 Results & Data ([facility]) Current Inpatient Medications Current Inpatient Medications: Current Inpatient Medications Acetaminophen (Acetaminophen 325 Mg Tab) 650 mg PO Q4H PRN PRN Reason: Headache or Minor Fever Stop: 01/31/24 01:13 Last Admin: 01/01/24 12:19 Dose: 650 mg Al Hydrox/Mg Hydrox/Simethicone (Aluminum/Magnesium Susp 30 Ml Udc) 30 ml PO Q4H PRN PRN Reason: GI Upset Stop: 01/31/24 01:13 Bismuth Subsalicylate (Bismuth Subsalicylate Liqd 236 Ml) 15 ml PO PRN PRN PRN Reason: Loose Stool Stop: 01/31/24 01:13 Clonidine HCl (Clonidine Hcl 0.1 Mg Tab) 0.1 mg PO HS REJI Stop: 01/31/24 21:59 Last Admin: 01/01/24 21:58 Dose: 0.1 mg Divalproex Sodium (Divalproex Extended Release 500 Mg Tab) 1,000 mg PO HS REJI Stop: 02/01/24 21:59 Gabapentin (Gabapentin 300 Mg Cap) 300 mg PO TID PRN PRN Reason: restlessness Stop: 01/31/24 13:50 Hydroxyzine HCl (Hydroxyzine Hcl 25 Mg Tab) 50 mg PO HSZ PRN PRN Reason: Insomnia Stop: 01/31/24 01:13 Lorazepam (Lorazepam 1 Mg Tab) 1 mg PO Q6H PRN PRN Reason: Anxiety Stop: 01/31/24 04:19 Last Admin: 01/01/24 11:07 Dose: 1 mg Magnesium Hydroxide (Magnesium Hydroxide Susp 30 Ml Udc) 30 ml PO DAILY PRN PRN Reason: Constipation Stop: 01/31/24 01:13 Last Admin: 01/02/24 13:29 Dose: 30 ml Miscellaneous (Remove Nicoderm Patch) 1 each N/A DAILY@0859 [facility] Stop: 02/01/24 08:58 Last Admin: 01/02/24 09:07 Dose: Not Given Nicotine (Nicotine 14 Mg/24 Hr Patch) 1 patch TD QAM [facility] Stop: 01/31/24 11:14 Last Admin: 01/02/24 09:08 Dose: Not Given Nicotine Polacrilex (Nicotine Polacrilex 2 Mg Gum) 1 piece MT Q2H PRN PRN Reason: smoking cessation Stop: 01/31/24 13:46 Last Admin: 01/01/24 20:12 Dose: 1 piece Nitrofurantoin Macrocrystals (Nitrofurantoin Monohydrate 100 Mg Cap) 100 mg PO BID [facility] Stop: 01/05/24 21:01 Last Admin: 01/02/24 09:09 Dose: 100 mg Propranolol HCl (Propranolol Hcl 10 Mg Tab) 10 mg PO BID [facility] Stop: 01/31/24 08:59 Last Admin: 01/02/24 09:09 Dose: 10 mg Risperidone (Risperidone 2 Mg Tablet) 2 mg PO [facility] Stop: 01/31/24 21:59 Last Admin: 01/01/24 21:59 Dose: 2 mg Risperidone (Risperidone 1 Mg Tablet) 1 mg PO QAM [facility] Stop: 01/31/24 08:59 Last Admin: 01/02/24 09:09 Dose: 1 mg Sodium Chloride (Sodium Chloride 0.65% Na Soln 45 Ml ([place])) 1 - 2 sprays NA PRN PRN PRN Reason: Nasal Dryness/Congestion Stop: 01/31/24 01:13 Trazodone HCl (Trazodone Hcl 100 Mg Tab) 100 mg PO [facility] Stop: 01/31/24 21:59 Last Admin: 01/01/24 21:59 Dose: 100 mg Vitamin D (Cholecalciferol 125 Mcg (5,000 Units) Tab) 125 mcg PO QAM [facility] Stop: 01/31/24 08:59 Last Admin: 01/02/24 09:07 Dose: 125 mcg Mental Health & Subst Abuse Tx Therapist Name of Therapist: On waiting list at [facility] Mortician Name of Hospital Mortician: Roni
[2024-01-02] MEDS: OLANZapine ZYDIS 5 MG ORALLY DIS. TAB PO PRN (16:43)
[2024-01-02] MEDS: DIVALPROEX EXTENDED RELEASE 500 MG TAB PO SCH (20:29)
--- NOTE | 2024-01-03 09:18 | Psychiatric Progress Note ---
Date of Service January 03, 2024 Impression / Recommendations Impression Clary Alaniz is a 28-year-old woman with a history of schizoaffective disorder, bipolar type, methamphetamine use disorder who presents with suicidal ideation with plan to overdose in the context recent methamphetamine abuse, medication non-adherence, restlessness and pacing, decreased need for sleep. Complaints of auditory visual hallucinations. Pt was recently discharged from the hospital on 12/23/23 for a similar presentation and did not follow-up with outpatient care. She was admitted on 01/01/24 00:25 on a 201 voluntary commitment for suicidal ideation. Initial presentation included symptoms of restlessness, hyperactivitiy, command and auditory hallucinations, responding to internal stimuli, disorganized thought process. Recent decompensation likely due to medication non-adherence in setting of schizoaffective disorder and, methamphetamine intoxication/withdrawal. A: Ongoing psychosis with poor eye contact and prominent thought blocking. Dismissive of attempts to engage in motivational interviewing about recent substance use. Poor insight into symptoms and driving factors for SI. MNPR due to psychosis, restlessness Overall, I spent a total of 40 minutes with this case including review of chart records, nursing report, review of lab work, direct evaluation of the patient at bedside, counseling the patient, multidisciplinary team meeting, orders, and documentation in the electronic health record. (1) Acute psychosis: (2) Verbalizes suicidal thoughts: (3) Schizoaffective disorder, bipolar type: (4) Methamphetamine dependence, continuous: (5) Alcohol use disorder, mild, in early remission: (6) UTI (urinary tract infection): (7) Vitamin D deficiency: Plan 01/03/2024: Continue with current medications and tx plan. 01/02/2024: Increase Depakote ER to 1000 mg at bedtime. 01/01/2024:The patient was admitted to the [facility] ([facility] mental health unit) on q15 min checks (behavioral with suicide precautions) for safety. The patient will participate in group, recreational, and milieu therapies and will be offered additional individual and family sessions as clinically appropriate. -Restart psychiatric medications (Risperidone 1mg QAM, 2mg HS; Clonidine 1mg HS; Propranolol 10mg BID; Trazodone 100mg HS; Vit D 5000u daily; Depakote ER 500mg HS; Gabapentin 300mg TID PRN) -Continue Macrobid BID 5 days for UTI Inventory Assets Strengths: family support, willing to get treatment Needs: insight, outpatient connection Suicide Risk Level Suicide Risk Level: High-Moderate (q15 min suicide checks) (psychosis and SI with plan prior to admission, ongoing SI but no evidence for current command AH, she feels safe in the hospital and feels able to ask for support if needed) Risk Factors Assessment Male: No : Yes Do You Have Access To A Gun?: No Health Problems: No Mental Health Diagnoses: Yes Substance Use Disorders: Yes Previous Attempt: Yes Family History of Suicide: No Previous Psychiatric Hospitalization: Yes Hopelessness: No Protective Factors Assessment Congregation Beliefs: No : No Responsible for Young Children: No Employed: No Stable Relationships: No Supportive Family: No Good Rapport with Provider: Yes Absence of Any Risk Factors Above: No Interval History Identifying Information Clary Alaniz is a unemployed, domiciled with sister 28-year-old white female history of schizoaffective disorder, bipolar type, methamphetamine use disorder who presents with suicidal ideation with plan to overdose in the context recent methamphetamine abuse, medication non-adherence, restleness and pacing, decreased need for sleep. Complaints of auditory visual hallucinations. Pt was recently discharged from the hospital on 12/23/23 for a similar presentation and did not follow-up with outpatient care. She was admitted on 01/01/24 00:25 on a 201 voluntary commitment for suicidal ideation. Chief Complaint "I don't want to talk about using drugs". Review of Systems Sleep Information Total Hours of Sleep: 7 Sleep Comments: Trazodone Meal Information Percent Meal Consumed - Breakfast: 100 Percent Meal Consumed - Lunch: 100 Percent Meal Consumed - Dinner: 90 Subjective Subjective Patient was seen & assessed and interval progress reviewed with treatment team nursing and social work. Attended her first group last evening. Showered last night. Today reports her mood is "fine". Denies any concerns or questions. Lying in bed and makes minimal eye contact. Reports ongoing SI stating it's "not good", feels safe in the hospital, still thinking about overdosing on tylenol PM. Reports "I don't know" when asked about possible reasons for her SI. Tells me "I don't want to talk about using drugs" when attempting to discuss her substance use prior to admission and role this may be playing in her mood and SI. Physical Exam Psychiatric Orientation: alert, oriented to person, oriented to place and + guarded Apperance: + disheveled Eye Contact: + poor eye contact Motor Behavior: no abnormal motor movements Speech: normal rate/rhythm/volume of speech Affect: + flat affect Mood: + irritable mood Thought Process: + thought blocking and + concrete thought process Thought Content: reality based without delusions (minimizes, dismissive) Suicidal Thoughts: denies suicidal intent; + reports suicidal thoughts and + reports suicidal plan (none for hospital, outside to overdose on tylenol) Homicidal Thoughts: denies homicidal thoughts Insight: + limited insight Judgment: + limited judgement Vital Signs (Past 24 Hours) Last Vital Signs Temp 36.7 C 01/02/24 06:50 Pulse 75 01/02/24 20:33 Resp 16 01/02/24 06:50 BP 110/77 01/02/24 20:33 Pulse Ox 99 01/01/24 01:54 O2 Del Method Room Air 01/01/24 01:54 Results & Data ([facility]) Current Inpatient Medications Current Inpatient Medications: Current Inpatient Medications Acetaminophen (Acetaminophen 325 Mg Tab) 650 mg PO Q4H PRN PRN Reason: Headache or Minor Fever Stop: 01/31/24 01:13 Last Admin: 01/01/24 12:19 Dose: 650 mg Al Hydrox/Mg Hydrox/Simethicone (Aluminum/Magnesium Susp 30 Ml Udc) 30 ml PO Q4H PRN PRN Reason: GI Upset Stop: 01/31/24 01:13 Benztropine Mesylate (Benztropine Mesylate 1 Mg Tab) 1 mg PO BID PRN PRN Reason: EPS Stop: 02/01/24 13:47 Benztropine Mesylate (Benztropine Mesylate 1 Mg/Ml 2 Ml Amp) 1 mg IM BID PRN PRN Reason: EPS Stop: 02/01/24 13:47 Bismuth Subsalicylate (Bismuth Subsalicylate Liqd 236 Ml) 15 ml PO PRN PRN PRN Reason: Loose Stool Stop: 01/31/24 01:13 Clonidine HCl (Clonidine Hcl 0.1 Mg Tab) 0.1 mg PO HS REJI Stop: 01/31/24 21:59 Last Admin: 01/02/24 20:29 Dose: 0.1 mg Divalproex Sodium (Divalproex Extended Release 500 Mg Tab) 1,000 mg PO HS REJI Stop: 02/01/24 21:59 Last Admin: 01/02/24 20:29 Dose: 1,000 mg Gabapentin (Gabapentin 300 Mg Cap) 300 mg PO TID PRN PRN Reason: restlessness Stop: 01/31/24 13:50 Hydroxyzine HCl (Hydroxyzine Hcl 25 Mg Tab) 50 mg PO HSZ PRN PRN Reason: Insomnia Stop: 01/31/24 01:13 Lorazepam (Lorazepam 1 Mg Tab) 1 mg PO Q6H PRN PRN Reason: Anxiety Stop: 01/31/24 04:19 Last Admin: 01/01/24 11:07 Dose: 1 mg Magnesium Hydroxide (Magnesium Hydroxide Susp 30 Ml Udc) 30 ml PO DAILY PRN PRN Reason: Constipation Stop: 01/31/24 01:13 Last Admin: 01/02/24 13:29 Dose: 30 ml Miscellaneous (Remove Nicoderm Patch) 1 each N/A DAILY@0859 [facility] Stop: 02/01/24 08:58 Last Admin: 01/02/24 09:07 Dose: Not Given Nicotine (Nicotine 14 Mg/24 Hr Patch) 1 patch TD QAM [facility] Stop: 01/31/24 11:14 Last Admin: 01/02/24 09:08 Dose: Not Given Nicotine Polacrilex (Nicotine Polacrilex 2 Mg Gum) 1 piece MT Q2H PRN PRN Reason: smoking cessation Stop: 01/31/24 13:46 Last Admin: 01/02/24 17:54 Dose: 1 piece Nitrofurantoin Macrocrystals (Nitrofurantoin Monohydrate 100 Mg Cap) 100 mg PO BID [facility] Stop: 01/05/24 21:01 Last Admin: 01/02/24 20:28 Dose: 100 mg Olanzapine (Olanzapine Zydis 5 Mg Orally Dis. Tab) 5 mg PO BID PRN PRN Reason: Agitation Stop: 02/01/24 20:59 Last Admin: 01/02/24 16:43 Dose: 5 mg Olanzapine (Olanzapine 10 Mg/2.1 Ml Sdv) 5 mg IM BID PRN PRN Reason: Agitation Stop: 02/01/24 20:59 Propranolol HCl (Propranolol Hcl 10 Mg Tab) 10 mg PO BID REJI Stop: 01/31/24 08:59 Last Admin: 01/02/24 20:28 Dose: 10 mg Risperidone (Risperidone 2 Mg Tablet) 2 mg PO HS REJI Stop: 01/31/24 21:59 Last Admin: 01/02/24 20:30 Dose: 2 mg Risperidone (Risperidone 1 Mg Tablet) 1 mg PO QAM REJI Stop: 01/31/24 08:59 Last Admin: 01/02/24 09:09 Dose: 1 mg Sodium Chloride (Sodium Chloride 0.65% Na Soln 45 Ml ([place])) 1 - 2 sprays NA PRN PRN PRN Reason: Nasal Dryness/Congestion Stop: 01/31/24 01:13 Trazodone HCl (Trazodone Hcl 100 Mg Tab) 100 mg PO HS REJI Stop: 01/31/24 21:59 Last Admin: 01/02/24 20:29 Dose: 100 mg Vitamin D (Cholecalciferol 125 Mcg (5,000 Units) Tab) 125 mcg PO QAM REJI Stop: 01/31/24 08:59 Last Admin: 01/02/24 09:07 Dose: 125 mcg Mental Health & Subst Abuse Tx Therapist Name of Therapist: On waiting list at [facility] Director Medical Writing Name of Director Medical Writing: Roni
--- NOTE | 2024-01-04 09:33 | Psychiatric Progress Note ---
Date of Service January 04, 2024 Impression / Recommendations Impression Clary Alaniz is a 28-year-old woman with a history of schizoaffective disorder, bipolar type, methamphetamine use disorder who presents with suicidal ideation with plan to overdose in the context recent methamphetamine abuse, medication non-adherence, restlessness and pacing, decreased need for sleep. Complaints of auditory visual hallucinations. Pt was recently discharged from the hospital on 12/23/23 for a similar presentation and did not follow-up with outpatient care. She was admitted on 01/01/24 00:25 on a 201 voluntary commitment for suicidal ideation. Initial presentation included symptoms of restlessness, hyperactivity, command and auditory hallucinations, responding to internal stimuli, disorganized thought process. Recent decompensation likely due to medication non-adherence in setting of schizoaffective disorder and, methamphetamine intoxication/withdrawal. A: Less thought blocking today, but still minimizes symptoms and remains reluctant to be on psychiatric medications for psychosis (though agreeable for now). Slightly contemplative today about substance use treatment as this may be a requirement for her to stay with her mother and grandmother but remains unwilling to explore her recent substance use nor reasons for use nor motivation for change/barriers/supports. Denies any medication side effects but wishes to minimize her medications and be back on medications she took previously (states prior to initial U admission in late November). Review of H&P from November shows history of Depakote, olanzapine, gabapentin and trazodone use. Risperidone was being used with goal of LOVELACE option given her history of non-adherence but she has previously refused LOVELACE consideration and if olanzapine will improve adherence this seems reasonable to trial instead. Will discontinue clonidine, risperidone and trazodone to reduce medication burden per her request and start olanzapine for schizoaffective disorder and with benefit of sedation to help with sleep. She remains on Depakote and can consider option to restart fluoxetine based on her preference in the coming days. Gabapentin remains available prn. Discussed medication treatment options in detail. Discussed risks, benefits and alternatives. Reviewed side effects including but not limited to: movement (TD, NMS), cardiac (QTc prolongation), and metabolic (stroke, insulin resistance) and necessity for fasting lipid and glucose labwork and AIMS done with score of 0. MNPR due to psychosis, restlessness Overall, I spent a total of 45 minutes with this case including review of chart records, nursing report, review of lab work, direct evaluation of the patient at bedside, counseling the patient, multidisciplinary team meeting, orders, and documentation in the electronic health record. (1) Acute psychosis: (2) Verbalizes suicidal thoughts: (3) Schizoaffective disorder, bipolar type: (4) Methamphetamine dependence, continuous: (5) Alcohol use disorder, mild, in early remission: (6) UTI (urinary tract infection): (7) Vitamin D deficiency: Plan 01/04/2024: Discontinue clonidine, trazodone and risperidone per her preference to reduce medications and in effort to improve outpatient adherence. Will start olanzapine 10mg HS. Fasting lipid panel and HbA1c tomorrow AM. 01/03/2024: Continue with current medications and tx plan. 01/02/2024: Increase Depakote ER to 1000 mg at bedtime. 01/01/2024:The patient was admitted to the [facility] ([facility] health unit) on q15 min checks (behavioral with suicide precautions) for safety. The patient will participate in group, recreational, and milieu therapies and will be offered additional individual and family sessions as clinically appropriate. -Restart psychiatric medications (Risperidone 1mg QAM, 2mg HS; Clonidine 1mg HS; Propranolol 10mg BID; Trazodone 100mg HS; Vit D 5000u daily; Depakote ER 500mg HS; Gabapentin 300mg TID PRN) -Continue Macrobid BID 5 days for UTI Inventory Assets Strengths: family support, willing to get treatment Needs: insight, outpatient connection Suicide Risk Level Suicide Risk Level: High-Moderate (q15 min suicide checks) (psychosis and SI with plan prior to admission, ongoing SI but no evidence for current command AH, she feels safe in the hospital and feels able to ask for support if needed) Risk Factors Assessment Male: No : Yes Do You Have Access To A Gun?: No Health Problems: No Mental Health Diagnoses: Yes Substance Use Disorders: Yes Previous Attempt: Yes Family History of Suicide: No Previous Psychiatric Hospitalization: Yes Hopelessness: No Protective Factors Assessment Gnosticist Beliefs: No : No Responsible for Young Children: No Employed: No Stable Relationships: No Supportive Family: No Good Rapport with Provider: Yes Absence of Any Risk Factors Above: No Interval History Identifying Information Clary Alaniz is a unemployed, domiciled with sister 28-year-old white female history of schizoaffective disorder, bipolar type, methamphetamine use disorder who presents with suicidal ideation with plan to overdose in the context recent methamphetamine abuse, medication non-adherence, restleness and pacing, decreased need for sleep. Complaints of auditory visual hallucinations. Pt was recently discharged from the hospital on 12/23/23 for a similar presentation and did not follow-up with outpatient care. She was admitted on 01/01/24 00:25 on a 201 voluntary commitment for suicidal ideation. Chief Complaint "Tired". Review of Systems Sleep Information Total Hours of Sleep: 7.35 Sleep Comments: HS Risperdal, Inderal, Trazadone and Clonidine Meal Information Percent Meal Consumed - Breakfast: 25 Percent Meal Consumed - Lunch: 25 Percent Meal Consumed - Dinner: 50 Subjective Subjective Patient was seen & assessed and interval progress reviewed with treatment team nursing and social work. Restless last evening, declined any prns. Spends most of the day lying in bed or walking in the halls. Attempted to join a few groups but could not tolerate and quickly left them. Showered last evening and did laundry with assistance. Yesterday afternoon spoke with RN about potential interest in substance use treatment in [place] as she plans to live with her grandmother as apparently her sister is unable to have her return. Reports she feels "tired" and wants to sleep this morning. Expresses frustration with her medications, feels she is taking too many medications and "I liked what I was on before" though she cannot recall what medications these were. Tells me she may be able to live with her mom and grandmother who reside in [place] but wants staff here to call them. May be willing to go for residential treatment there if her mom or grandmother require it for her to stay with them afterwards. Some lessening of SI reports that today it is "fine" and less frequent. Feels her restlessness is "here or there", does find propranolol prn helpful for this. Physical Exam Psychiatric Orientation: alert, oriented to person, oriented to place and + guarded Apperance: + disheveled Eye Contact: + poor eye contact Motor Behavior: no abnormal motor movements Speech: normal rate/rhythm/volume of speech Affect: + flat affect Mood: + irritable mood Thought Process: + concrete thought process Thought Content: reality based without delusions (minimizes, dismissive) Suicidal Thoughts: denies suicidal intent; + reports suicidal thoughts (less intense today) and + reports suicidal plan (none for hospital, outside to overdose on tylenol) Homicidal Thoughts: denies homicidal thoughts Insight: + limited insight Judgment: + limited judgement Vital Signs (Past 24 Hours) Last Vital Signs Temp 36.1 C L 01/04/24 02:42 Pulse 82 01/04/24 08:57 Resp 18 01/04/24 02:42 BP 113/76 01/04/24 08:57 Pulse Ox 95 01/04/24 02:42 O2 Del Method Room Air 01/04/24 02:42 Results & Data ([facility]) Current Inpatient Medications Current Inpatient Medications: Current Inpatient Medications Acetaminophen (Acetaminophen 325 Mg Tab) 650 mg PO Q4H PRN PRN Reason: Headache or Minor Fever Stop: 01/31/24 01:13 Last Admin: 01/01/24 12:19 Dose: 650 mg Al Hydrox/Mg Hydrox/Simethicone (Aluminum/Magnesium Susp 30 Ml Udc) 30 ml PO Q4H PRN PRN Reason: GI Upset Stop: 01/31/24 01:13 Benztropine Mesylate (Benztropine Mesylate 1 Mg Tab) 1 mg PO BID PRN PRN Reason: EPS Stop: 02/01/24 13:47 Benztropine Mesylate (Benztropine Mesylate 1 Mg/Ml 2 Ml Amp) 1 mg IM BID PRN PRN Reason: EPS Stop: 02/01/24 13:47 Bismuth Subsalicylate (Bismuth Subsalicylate Liqd 236 Ml) 15 ml PO PRN PRN PRN Reason: Loose Stool Stop: 01/31/24 01:13 Clonidine HCl (Clonidine Hcl 0.1 Mg Tab) 0.1 mg PO HS REJI Stop: 01/31/24 21:59 Last Admin: 01/03/24 20:52 Dose: 0.1 mg Divalproex Sodium (Divalproex Extended Release 500 Mg Tab) 1,000 mg PO HS REJI Stop: 02/01/24 21:59 Last Admin: 01/03/24 20:52 Dose: 1,000 mg Gabapentin (Gabapentin 300 Mg Cap) 300 mg PO TID PRN PRN Reason: restlessness Stop: 01/31/24 13:50 Hydroxyzine HCl (Hydroxyzine Hcl 25 Mg Tab) 50 mg PO HSZ PRN PRN Reason: Insomnia Stop: 01/31/24 01:13 Lorazepam (Lorazepam 1 Mg Tab) 1 mg PO Q6H PRN PRN Reason: Anxiety Stop: 01/31/24 04:19 Last Admin: 01/01/24 11:07 Dose: 1 mg Magnesium Hydroxide (Magnesium Hydroxide Susp 30 Ml Udc) 30 ml PO DAILY PRN PRN Reason: Constipation Stop: 01/31/24 01:13 Last Admin: 01/02/24 13:29 Dose: 30 ml Miscellaneous (Remove Nicoderm Patch) 1 each N/A DAILY@0859 [facility] Stop: 02/01/24 08:58 Last Admin: 01/04/24 08:51 Dose: Not Given Nicotine (Nicotine 14 Mg/24 Hr Patch) 1 patch TD QAM [facility] Stop: 01/31/24 11:14 Last Admin: 01/04/24 08:51 Dose: Not Given Nicotine Polacrilex (Nicotine Polacrilex 2 Mg Gum) 1 piece MT Q2H PRN PRN Reason: smoking cessation Stop: 01/31/24 13:46 Last Admin: 01/03/24 18:00 Dose: 1 piece Nitrofurantoin Macrocrystals (Nitrofurantoin Monohydrate 100 Mg Cap) 100 mg PO BID [facility] Stop: 01/05/24 21:01 Last Admin: 01/04/24 08:50 Dose: 100 mg Olanzapine (Olanzapine Zydis 5 Mg Orally Dis. Tab) 5 mg PO BID PRN PRN Reason: Agitation Stop: 02/01/24 20:59 Last Admin: 01/02/24 16:43 Dose: 5 mg Olanzapine (Olanzapine 10 Mg/2.1 Ml Sdv) 5 mg IM BID PRN PRN Reason: Agitation Stop: 02/01/24 20:59 Propranolol HCl (Propranolol Hcl 10 Mg Tab) 10 mg PO BID [facility] Stop: 01/31/24 08:59 Last Admin: 01/04/24 08:57 Dose: 10 mg Risperidone (Risperidone 2 Mg Tablet) 2 mg PO HS [facility] Stop: 01/31/24 21:59 Last Admin: 01/03/24 20:52 Dose: 2 mg Risperidone (Risperidone 1 Mg Tablet) 1 mg PO QAM [facility] Stop: 01/31/24 08:59 Last Admin: 01/04/24 08:49 Dose: 1 mg Sodium Chloride (Sodium Chloride 0.65% Na Soln 45 Ml ([place])) 1 - 2 sprays NA PRN PRN PRN Reason: Nasal Dryness/Congestion Stop: 01/31/24 01:13 Trazodone HCl (Trazodone Hcl 100 Mg Tab) 100 mg PO HS REJI Stop: 01/31/24 21:59 Last Admin: 01/03/24 20:52 Dose: 100 mg Vitamin D (Cholecalciferol 125 Mcg (5,000 Units) Tab) 125 mcg PO QAM REJI Stop: 01/31/24 08:59 Last Admin: 01/04/24 08:50 Dose: 125 mcg Mental Health & Subst Abuse Tx Therapist Name of Therapist: On waiting list at [facility] [employer] Name of School Patrol: Roni
[2024-01-04] MEDS: GABAPENTIN 300 MG CAP PO PRN (15:50)
[2024-01-04] MEDS: OLANZapine 10 MG TAB PO SCH (20:46)
[2024-01-05 08:18] LABS: Chol HDL Ratio 4.1 (0-5)
[2024-01-05 08:42] LABS: Estimated Average Glucose 111 mg/dl; Hemoglobin A1C 5.5 % (4.5-5.6)
--- NOTE | 2024-01-05 09:10 | Psychiatric Progress Note ---
Date of Service January 05, 2024 Impression / Recommendations Impression Clary Alaniz is a 28-year-old woman with a history of schizoaffective disorder, bipolar type, methamphetamine use disorder who presents with suicidal ideation with plan to overdose in the context recent methamphetamine abuse, medication non-adherence, restlessness and pacing, decreased need for sleep. Complaints of auditory visual hallucinations. Pt was recently discharged from the hospital on 12/23/23 for a similar presentation and did not follow-up with outpatient care. She was admitted on 01/01/24 00:25 on a 201 voluntary commitment for suicidal ideation. Initial presentation included symptoms of restlessness, hyperactivity, command and auditory hallucinations, responding to internal stimuli, disorganized thought process. Recent decompensation likely due to medication non-adherence in setting of schizoaffective disorder and, methamphetamine intoxication/withdrawal. A: Minimal engagement overall but today out of her room a bit more, making better eye contact and appears less fatigued. Suspect this is in part due to lessening of her amphetamine/methamphetamine withdrawal. She is pleased with the medication changes and psychosis seems to be lessening, still unclear if she's responding to internal stimuli at times. Unclear what is driving her restlessness, suspect largely due to prolonged periods of amphetamine/methamphetamine use. If symptoms represent akathisia they may further improve with switch to olanzapine. She requests to have trazodone available as a prn due to historical issues sleeping even with olanzapine. Will avoid starting anything additional for depression as she is reporting some mood improvement today and lessening of SI and with potential benefits from Depakote increase in recent days. Remains resistant to exploring her substance use. Labwork reviewed and notable for normal HbA1c, lipid panel so reassuring given use of olanzapine. MNPR due to psychosis, restlessness Overall, I spent a total of 35 minutes with this case including review of chart records, nursing report, review of lab work, direct evaluation of the patient at bedside, counseling the patient, multidisciplinary team meeting, orders, and documentation in the electronic health record. (1) Acute psychosis: (2) Verbalizes suicidal thoughts: (3) Schizoaffective disorder, bipolar type: (4) Methamphetamine dependence, continuous: (5) Alcohol use disorder, mild, in early remission: (6) UTI (urinary tract infection): (7) Vitamin D deficiency: Plan 01/05/2024: Will have trazodone available as prn. Continue olanzapine, propranolol, Depakote. Will get repeat Depakote level in 2 days. 01/04/2024: Discontinue clonidine, trazodone and risperidone per her preference to reduce medications and in effort to improve outpatient adherence. Will start olanzapine 10mg HS. Fasting lipid panel and HbA1c tomorrow AM. 01/03/2024: Continue with current medications and tx plan. 01/02/2024: Increase Depakote ER to 1000 mg at bedtime. 01/01/2024:The patient was admitted to the [facility] ([facility]) on q15 min checks (behavioral with suicide precautions) for safety. The patient will participate in group, recreational, and milieu therapies and will be offered additional individual and family sessions as clinically appropriate. -Restart psychiatric medications (Risperidone 1mg QAM, 2mg HS; Clonidine 1mg HS; Propranolol 10mg BID; Trazodone 100mg HS; Vit D 5000u daily; Depakote ER 500mg HS; Gabapentin 300mg TID PRN) -Continue Macrobid BID 5 days for UTI Inventory Assets Strengths: family support, willing to get treatment Needs: insight, outpatient connection Suicide Risk Level Suicide Risk Level: Moderate (q15 min suicide checks) (psychosis and SI with plan prior to admission, SI lessening, mood improving, lessening of psychosis, denying any command AH, she feels safe in the hospital and feels able to ask for support if needed) Risk Factors Assessment Male: No : Yes Do You Have Access To A Gun?: No Health Problems: No Mental Health Diagnoses: Yes Substance Use Disorders: Yes Previous Attempt: Yes Family History of Suicide: No Previous Psychiatric Hospitalization: Yes Hopelessness: No Protective Factors Assessment Voodoo Beliefs: No : No Responsible for Young Children: No Employed: No Stable Relationships: No Supportive Family: No Good Rapport with Provider: Yes Absence of Any Risk Factors Above: No Interval History Identifying Information Clary Alaniz is a unemployed, domiciled with sister 28-year-old white female history of schizoaffective disorder, bipolar type, methamphetamine use disorder who presents with suicidal ideation with plan to overdose in the context recent methamphetamine abuse, medication non-adherence, restleness and pacing, decreased need for sleep. Complaints of auditory visual hallucinations. Pt was recently discharged from the hospital on 12/23/23 for a similar presentation and did not follow-up with outpatient care. She was admitted on 01/01/24 00:25 on a 201 voluntary commitment for suicidal ideation. Chief Complaint "Good". Review of Systems Sleep Information Total Hours of Sleep: 9 Sleep Comments: HS Inderal and Zyprexa Meal Information Percent Meal Consumed - Breakfast: 25 Percent Meal Consumed - Lunch: 100 Percent Meal Consumed - Dinner: 100 Subjective Subjective Patient was seen & assessed and interval progress reviewed with treatment team nursing and social work. Not attending any groups, isolative to her room most of the day. Mid-day spent time in the group room around a peer during a recreation therapy group. Reports improvement in her mood today and less fatigue. She attributes this in part to hearing her grandmother will be willing to have her stay with her in [place] after discharge and pleased with medication changes. Reviewed her labwork results. She reports some ongoing restlessness. Physical Exam Psychiatric Orientation: alert, oriented to person and oriented to place Apperance: appropriately dressed and appropriately groomed Eye Contact: + fair eye contact Motor Behavior: no abnormal motor movements (but pacing a bit in her room) Speech: normal rate/rhythm/volume of speech Affect: + constricted affect Mood: + anxious mood; no irritable mood Thought Process: goal directed thought process and + concrete thought process Thought Content: reality based without delusions Suicidal Thoughts: denies suicidal plan and denies suicidal intent; + reports suicidal thoughts (so far today, have been intermittent) Homicidal Thoughts: denies homicidal thoughts Insight: + limited insight Judgment: + limited judgement Vital Signs (Past 24 Hours) Last Vital Signs Temp 36.4 C 01/05/24 06:43 Pulse 64 01/05/24 06:43 Resp 16 01/05/24 06:43 BP 115/76 01/05/24 06:43 Pulse Ox 97 01/05/24 06:43 O2 Del Method Room Air 01/05/24 06:43 Results & Data ([facility]) Laboratory Results Laboratory Results - last 24 hr 01/05/24 07:41 Estimat Average Glucose 111 Hemoglobin A1c 5.5 Triglycerides 148 Cholesterol 138 LDL Cholesterol, Calc 74 VLDL Cholesterol, Calc 30 HDL Cholesterol 34 Cholesterol/HDL Ratio 4.1 Current Inpatient Medications Current Inpatient Medications: Current Inpatient Medications Acetaminophen (Acetaminophen 325 Mg Tab) 650 mg PO Q4H PRN PRN Reason: Headache or Minor Fever Stop: 01/31/24 01:13 Last Admin: 01/01/24 12:19 Dose: 650 mg Al Hydrox/Mg Hydrox/Simethicone (Aluminum/Magnesium Susp 30 Ml Udc) 30 ml PO Q4H PRN PRN Reason: GI Upset Stop: 01/31/24 01:13 Benztropine Mesylate (Benztropine Mesylate 1 Mg Tab) 1 mg PO BID PRN PRN Reason: EPS Stop: 02/01/24 13:47 Benztropine Mesylate (Benztropine Mesylate 1 Mg/Ml 2 Ml Amp) 1 mg IM BID PRN PRN Reason: EPS Stop: 02/01/24 13:47 Bismuth Subsalicylate (Bismuth Subsalicylate Liqd 236 Ml) 15 ml PO PRN PRN PRN Reason: Loose Stool Stop: 01/31/24 01:13 Divalproex Sodium (Divalproex Extended Release 500 Mg Tab) 1,000 mg PO HS REJI Stop: 02/01/24 21:59 Last Admin: 01/04/24 20:24 Dose: 1,000 mg Gabapentin (Gabapentin 300 Mg Cap) 300 mg PO TID PRN PRN Reason: restlessness Stop: 01/31/24 13:50 Last Admin: 01/04/24 15:50 Dose: 300 mg Hydroxyzine HCl (Hydroxyzine Hcl 25 Mg Tab) 50 mg PO HSZ PRN PRN Reason: Insomnia Stop: 01/31/24 01:13 Magnesium Hydroxide (Magnesium Hydroxide Susp 30 Ml Udc) 30 ml PO DAILY PRN PRN Reason: Constipation Stop: 01/31/24 01:13 Last Admin: 01/02/24 13:29 Dose: 30 ml Miscellaneous (Remove Nicoderm Patch) 1 each N/A DAILY@0859 [facility] Stop: 02/01/24 08:58 Last Admin: 01/04/24 08:51 Dose: Not Given Nicotine (Nicotine 14 Mg/24 Hr Patch) 1 patch TD QAM [facility] Stop: 01/31/24 11:14 Last Admin: 01/04/24 08:51 Dose: Not Given Nicotine Polacrilex (Nicotine Polacrilex 2 Mg Gum) 1 piece MT Q2H PRN PRN Reason: smoking cessation Stop: 01/31/24 13:46 Last Admin: 01/04/24 15:50 Dose: 1 piece Nitrofurantoin Macrocrystals (Nitrofurantoin Monohydrate 100 Mg Cap) 100 mg PO BID REJI Stop: 01/05/24 21:01 Last Admin: 01/04/24 20:26 Dose: 100 mg Olanzapine (Olanzapine Zydis 5 Mg Orally Dis. Tab) 5 mg PO BID PRN PRN Reason: Agitation Stop: 02/01/24 20:59 Last Admin: 01/02/24 16:43 Dose: 5 mg Olanzapine (Olanzapine 10 Mg/2.1 Ml Sdv) 5 mg IM BID PRN PRN Reason: Agitation Stop: 02/01/24 20:59 Olanzapine (Olanzapine 10 Mg Tab) 10 mg PO HS REJI Stop: 02/03/24 21:59 Last Admin: 01/04/24 20:46 Dose: 10 mg Propranolol HCl (Propranolol Hcl 10 Mg Tab) 10 mg PO BID REJI Stop: 01/31/24 08:59 Last Admin: 01/04/24 20:26 Dose: 10 mg Sodium Chloride (Sodium Chloride 0.65% Na Soln 45 Ml ([place])) 1 - 2 sprays NA PRN PRN PRN Reason: Nasal Dryness/Congestion Stop: 01/31/24 01:13 Vitamin D (Cholecalciferol 125 Mcg (5,000 Units) Tab) 125 mcg PO QAM REJI Stop: 01/31/24 08:59 Last Admin: 01/04/24 08:50 Dose: 125 mcg Mental Health & Subst Abuse Tx Therapist Name of Therapist: On waiting list at [facility] [employer] Name of Wood Piler: Roni
[2024-01-05 15:27] LABS: Amphetamine Urine, Confirm 11400 ng/mL (<250); MDA negative; MDEA negative; MDMA (Ecstasy) Urine, Confirm negative; Methamphetamine, Ur Confirm >15000 ng/mL (<250)
[2024-01-05] MEDS: traZODone HCL 50 MG TAB PO PRN (20:30)
--- NOTE | 2024-01-06 09:02 | Psychiatric Progress Note ---
Date of Service January 06, 2024 Impression / Recommendations Impression Clary Alaniz is a 28-year-old woman with a history of schizoaffective disorder, bipolar type, methamphetamine use disorder who presents with suicidal ideation with plan to overdose in the context recent methamphetamine abuse, medication non-adherence, restlessness and pacing, decreased need for sleep. Complaints of auditory visual hallucinations. Pt was recently discharged from the hospital on 12/23/23 for a similar presentation and did not follow-up with outpatient care. She was admitted on 01/01/24 00:25 on a 201 voluntary commitment for suicidal ideation. Initial presentation included symptoms of restlessness, hyperactivity, command and auditory hallucinations, responding to internal stimuli, disorganized thought process. Recent decompensation likely due to medication non-adherence in setting of schizoaffective disorder and, methamphetamine intoxication/withdrawal. A: Starting to engage a bit more, still irritable at times when asked about her substance use but willing for residential substance use treatment. Continues to minimize role of methamphetamine use in recent symptoms and repeated hospitalizations. Still with very limited insight into factors that may have influenced her to develop SI. Will plan to get repeat Depakote level tomorrow given recent dose increase. MNPR due to psychosis, restlessness Overall, I spent a total of 35 minutes with this case including review of chart records, nursing report, review of lab work, direct evaluation of the patient at bedside, counseling the patient, multidisciplinary team meeting, orders, and documentation in the electronic health record. (1) Acute psychosis: (2) Verbalizes suicidal thoughts: (3) Schizoaffective disorder, bipolar type: (4) Methamphetamine dependence, continuous: (5) Alcohol use disorder, mild, in early remission: (6) UTI (urinary tract infection): (7) Vitamin D deficiency: Plan 01/06/2024: Depakote level tomorrow evening 01/05/2024: Will have trazodone available as prn. Continue olanzapine, propranolol, Depakote. Will get repeat Depakote level in 2 days. 01/04/2024: Discontinue clonidine, trazodone and risperidone per her preference to reduce medications and in effort to improve outpatient adherence. Will start olanzapine 10mg HS. Fasting lipid panel and HbA1c tomorrow AM. 01/03/2024: Continue with current medications and tx plan. 01/02/2024: Increase Depakote ER to 1000 mg at bedtime. 01/01/2024:The patient was admitted to the [facility] ([facility] inpatient mental health unit) on q15 min checks (behavioral with suicide precautions) for safety. The patient will participate in group, recreational, and milieu therapies and will be offered additional individual and family sessions as clinically appropriate. -Restart psychiatric medications (Risperidone 1mg QAM, 2mg HS; Clonidine 1mg HS; Propranolol 10mg BID; Trazodone 100mg HS; Vit D 5000u daily; Depakote ER 500mg HS; Gabapentin 300mg TID PRN) -Continue Macrobid BID 5 days for UTI Inventory Assets Strengths: family support, willing to get treatment Needs: insight, outpatient connection Suicide Risk Level Suicide Risk Level: Moderate (q15 min suicide checks) (psychosis and SI with plan prior to admission, now denying SI, mood improving, lessening of psychosis, denying any command AH, she feels safe in the hospital and feels able to ask for support if needed) Risk Factors Assessment Male: No : Yes Do You Have Access To A Gun?: No Health Problems: No Mental Health Diagnoses: Yes Substance Use Disorders: Yes Previous Attempt: Yes Family History of Suicide: No Previous Psychiatric Hospitalization: Yes Hopelessness: No Protective Factors Assessment Temple Beliefs: No : No Responsible for Young Children: No Employed: No Stable Relationships: No Supportive Family: No Good Rapport with Provider: Yes Absence of Any Risk Factors Above: No Interval History Identifying Information Clary Alaniz is a unemployed, domiciled with sister 28-year-old white female history of schizoaffective disorder, bipolar type, methamphetamine use disorder who presents with suicidal ideation with plan to overdose in the context recent methamphetamine abuse, medication non-adherence, restleness and pacing, decreased need for sleep. Complaints of auditory visual hallucinations. Pt was recently discharged from the hospital on 12/23/23 for a similar presentation and did not follow-up with outpatient care. She was admitted on 01/01/24 00:25 on a 201 voluntary commitment for suicidal ideation. Chief Complaint "Fine, tired". Review of Systems Sleep Information Total Hours of Sleep: 8 Sleep Comments: PRN Trazadone at HS Meal Information Percent Meal Consumed - Breakfast: 100 Percent Meal Consumed - Lunch: 100 Percent Meal Consumed - Dinner: 75 Subjective Subjective Patient was seen & assessed and interval progress reviewed with treatment team nursing and social work. Today reports feeling "fine" and "tired". More motivated for residential substance use treatment today though continues to deny that she struggles with avoiding methamphetamine stating "I could just stop on my own if I wanted". But later acknowledged in a group that she did not participate long enough in residential treatment to get a sense for how helpful it could be for her and this time she plans to stay for the entirety of a program. Motivated enough to make calls on her own to a facility she is interested in. Denies any new medication side effects or concerns. Physical Exam Psychiatric Orientation: alert, oriented to person and oriented to place Apperance: appropriately dressed and appropriately groomed Eye Contact: + fair eye contact Motor Behavior: no abnormal motor movements Speech: normal rate/rhythm/volume of speech Affect: + constricted affect Mood: + irritable mood Thought Process: goal directed thought process and + concrete thought process Thought Content: reality based without delusions Suicidal Thoughts: denies suicidal thoughts, denies suicidal plan and denies suicidal intent Homicidal Thoughts: denies homicidal thoughts Insight: + limited insight Judgment: + limited judgement Vital Signs (Past 24 Hours) Last Vital Signs Temp 36.2 C L 01/06/24 06:00 Pulse 85 01/06/24 06:00 Resp 16 01/06/24 06:00 BP 113/80 01/06/24 06:00 Pulse Ox 97 01/05/24 06:43 O2 Del Method Room Air 01/05/24 06:43 Results & Data ([facility]) Laboratory Results Laboratory Results - last 24 hr 12/31/23 21:07 U Amphetamines Confirm 76025 H U Methamphetamin Confrm >84709 H Urine MDEA negative MDMA negative Urine MDMA negative Drug Screen Comment SEE NOTE Current Inpatient Medications Current Inpatient Medications: Current Inpatient Medications Acetaminophen (Acetaminophen 325 Mg Tab) 650 mg PO Q4H PRN PRN Reason: Headache or Minor Fever Stop: 01/31/24 01:13 Last Admin: 01/01/24 12:19 Dose: 650 mg Al Hydrox/Mg Hydrox/Simethicone (Aluminum/Magnesium Susp 30 Ml Udc) 30 ml PO Q4H PRN PRN Reason: GI Upset Stop: 01/31/24 01:13 Benztropine Mesylate (Benztropine Mesylate 1 Mg Tab) 1 mg PO BID PRN PRN Reason: EPS Stop: 02/01/24 13:47 Benztropine Mesylate (Benztropine Mesylate 1 Mg/Ml 2 Ml Amp) 1 mg IM BID PRN PRN Reason: EPS Stop: 02/01/24 13:47 Bismuth Subsalicylate (Bismuth Subsalicylate Liqd 236 Ml) 15 ml PO PRN PRN PRN Reason: Loose Stool Stop: 01/31/24 01:13 Divalproex Sodium (Divalproex Extended Release 500 Mg Tab) 1,000 mg PO HS REJI Stop: 02/01/24 21:59 Last Admin: 01/05/24 20:30 Dose: 1,000 mg Gabapentin (Gabapentin 300 Mg Cap) 300 mg PO TID PRN PRN Reason: restlessness Stop: 01/31/24 13:50 Last Admin: 01/05/24 14:15 Dose: 300 mg Hydroxyzine HCl (Hydroxyzine Hcl 25 Mg Tab) 50 mg PO HSZ PRN PRN Reason: Insomnia Stop: 01/31/24 01:13 Magnesium Hydroxide (Magnesium Hydroxide Susp 30 Ml Udc) 30 ml PO DAILY PRN PRN Reason: Constipation Stop: 01/31/24 01:13 Last Admin: 01/02/24 13:29 Dose: 30 ml Miscellaneous (Remove Nicoderm Patch) 1 each N/A DAILY@0859 [facility] Stop: 02/01/24 08:58 Last Admin: 01/05/24 09:34 Dose: Not Given Nicotine (Nicotine 14 Mg/24 Hr Patch) 1 patch TD QAM [facility] Stop: 01/31/24 11:14 Last Admin: 01/05/24 09:34 Dose: Not Given Nicotine Polacrilex (Nicotine Polacrilex 2 Mg Gum) 1 piece MT Q2H PRN PRN Reason: smoking cessation Stop: 01/31/24 13:46 Last Admin: 01/05/24 20:38 Dose: 1 piece Olanzapine (Olanzapine Zydis 5 Mg Orally Dis. Tab) 5 mg PO BID PRN PRN Reason: Agitation Stop: 02/01/24 20:59 Last Admin: 01/02/24 16:43 Dose: 5 mg Olanzapine (Olanzapine 10 Mg/2.1 Ml Sdv) 5 mg IM BID PRN PRN Reason: Agitation Stop: 02/01/24 20:59 Olanzapine (Olanzapine 10 Mg Tab) 10 mg PO HS REJI Stop: 02/03/24 21:59 Last Admin: 01/05/24 20:30 Dose: 10 mg Propranolol HCl (Propranolol Hcl 10 Mg Tab) 10 mg PO BID REJI Stop: 01/31/24 08:59 Last Admin: 01/05/24 20:31 Dose: Not Given Sodium Chloride (Sodium Chloride 0.65% Na Soln 45 Ml ([place])) 1 - 2 sprays NA PRN PRN PRN Reason: Nasal Dryness/Congestion Stop: 01/31/24 01:13 Trazodone HCl (Trazodone Hcl 50 Mg Tab) 50 mg PO HS PRN PRN Reason: Insomnia Stop: 02/04/24 21:59 Last Admin: 01/05/24 20:30 Dose: 50 mg Vitamin D (Cholecalciferol 125 Mcg (5,000 Units) Tab) 125 mcg PO QAM REJI Stop: 01/31/24 08:59 Last Admin: 01/05/24 09:29 Dose: 125 mcg Mental Health & Subst Abuse Tx Therapist Name of Therapist: On waiting list at [facility] Name of [facility]: Roni
--- NOTE | 2024-01-07 09:17 | Psychiatric Progress Note ---
Date of Service January 07, 2024 Impression / Recommendations Impression Clary Alaniz is a 28-year-old woman with a history of schizoaffective disorder, bipolar type, methamphetamine use disorder who presents with suicidal ideation with plan to overdose in the context recent methamphetamine abuse, medication non-adherence, restlessness and pacing, decreased need for sleep. Complaints of auditory visual hallucinations. Pt was recently discharged from the hospital on 12/23/23 for a similar presentation and did not follow-up with outpatient care. She was admitted on 01/01/24 00:25 on a 201 voluntary commitment for suicidal ideation. Initial presentation included symptoms of restlessness, hyperactivity, command and auditory hallucinations, responding to internal stimuli, disorganized thought process. Recent decompensation likely due to medication non-adherence in setting of schizoaffective disorder and, methamphetamine intoxication/withdrawal. A: Mood improving, denies SI, future-oriented and hopeful for residential substance use treatment. Increased insight about desire to seek treatment for methamphetamine use disorder. Tolerating her psychiatric medications well without any side effects and finding these helpful. Depakote level to be drawn tonight given dose increase on admission. MNPR due to recent psychosis and restlessness Overall, I spent a total of 30 minutes with this case including review of chart records, nursing report, review of lab work, direct evaluation of the patient at bedside, counseling the patient, multidisciplinary team meeting, orders, and documentation in the electronic health record. (1) Schizoaffective disorder, bipolar type: (2) Methamphetamine dependence, continuous: (3) Alcohol use disorder, mild, in early remission: (4) Vitamin D deficiency: Plan 01/07/2024: Looking into residential substance use disorder facilities, continue with current medications and tx plan. 01/06/2024: Depakote level tomorrow evening 01/05/2024: Will have trazodone available as prn. Continue olanzapine, propranolol, Depakote. Will get repeat Depakote level in 2 days. 01/04/2024: Discontinue clonidine, trazodone and risperidone per her preference to reduce medications and in effort to improve outpatient adherence. Will start olanzapine 10mg HS. Fasting lipid panel and HbA1c tomorrow AM. 01/03/2024: Continue with current medications and tx plan. 01/02/2024: Increase Depakote ER to 1000 mg at bedtime. 01/01/2024:The patient was admitted to the [facility] on q15 min checks (behavioral with suicide precautions) for safety. The patient will participate in group, recreational, and milieu therapies and will be offered additional individual and family sessions as clinically appropriate. -Restart psychiatric medications (Risperidone 1mg QAM, 2mg HS; Clonidine 1mg HS; Propranolol 10mg BID; Trazodone 100mg HS; Vit D 5000u daily; Depakote ER 500mg HS; Gabapentin 300mg TID PRN) -Continue Macrobid BID 5 days for UTI Inventory Assets Strengths: family support, willing to get treatment Needs: insight, outpatient connection Suicide Risk Level Suicide Risk Level: Moderate (q15 min suicide checks) (psychosis and SI with plan prior to admission, now denying SI, mood improving, she feels safe in the hospital and feels able to ask for support if needed) Risk Factors Assessment Male: No : Yes Do You Have Access To A Gun?: No Health Problems: No Mental Health Diagnoses: Yes Substance Use Disorders: Yes Previous Attempt: Yes Family History of Suicide: No Previous Psychiatric Hospitalization: Yes Hopelessness: No Protective Factors Assessment Episcopalian Beliefs: No : No Responsible for Young Children: No Employed: No Stable Relationships: No Supportive Family: No Good Rapport with Provider: Yes Absence of Any Risk Factors Above: No Interval History Identifying Information Clary Alaniz is a unemployed, domiciled with sister 28-year-old white female history of schizoaffective disorder, bipolar type, methamphetamine use disorder who presents with suicidal ideation with plan to overdose in the context recent methamphetamine abuse, medication non-adherence, restleness and pacing, decreased need for sleep. Complaints of auditory visual hallucinations. Pt was recently discharged from the hospital on 12/23/23 for a similar presentation and did not follow-up with outpatient care. She was admitted on 01/01/24 00:25 on a 201 voluntary commitment for suicidal ideation. Chief Complaint "I'm good". Review of Systems Sleep Information Total Hours of Sleep: 7 Sleep Comments: PRN Trazadone at HS Meal Information Percent Meal Consumed - Breakfast: 100 Percent Meal Consumed - Lunch: 100 Percent Meal Consumed - Dinner: 100 Subjective Subjective Patient was seen & assessed and interval progress reviewed with treatment team nursing and social work. Attending some groups, has trouble staying for the full group but engaging for longer. Showered. Today reports positive mood, denies SI. Enjoying watching a show on TV and she's hopeful about possibility for substance use residential treatment at [facility]. Finding her medications helpful, denies any side effects. Physical Exam Psychiatric Orientation: alert, oriented to person and oriented to place Apperance: appropriately dressed and appropriately groomed Eye Contact: good eye contact Motor Behavior: no abnormal motor movements Speech: normal rate/rhythm/volume of speech Affect: euthymic affect Mood: no depressed mood, no anxious mood and no irritable mood Thought Process: goal directed thought process and + concrete thought process Thought Content: reality based without delusions Suicidal Thoughts: denies suicidal thoughts, denies suicidal plan and denies suicidal intent Homicidal Thoughts: denies homicidal thoughts Insight: + fair insight Judgment: + fair judgement Vital Signs (Past 24 Hours) Last Vital Signs Temp 36.3 C L 01/07/24 06:00 Pulse 67 01/07/24 06:00 Resp 16 01/07/24 06:00 BP 107/73 01/07/24 06:00 Pulse Ox 97 01/05/24 06:43 O2 Del Method Room Air 01/05/24 06:43 Results & Data ([facility]) Current Inpatient Medications Current Inpatient Medications: Current Inpatient Medications Acetaminophen (Acetaminophen 325 Mg Tab) 650 mg PO Q4H PRN PRN Reason: Headache or Minor Fever Stop: 01/31/24 01:13 Last Admin: 01/01/24 12:19 Dose: 650 mg Al Hydrox/Mg Hydrox/Simethicone (Aluminum/Magnesium Susp 30 Ml Udc) 30 ml PO Q4H PRN PRN Reason: GI Upset Stop: 01/31/24 01:13 Benztropine Mesylate (Benztropine Mesylate 1 Mg Tab) 1 mg PO BID PRN PRN Reason: EPS Stop: 02/01/24 13:47 Benztropine Mesylate (Benztropine Mesylate 1 Mg/Ml 2 Ml Amp) 1 mg IM BID PRN PRN Reason: EPS Stop: 02/01/24 13:47 Bismuth Subsalicylate (Bismuth Subsalicylate Liqd 236 Ml) 15 ml PO PRN PRN PRN Reason: Loose Stool Stop: 01/31/24 01:13 Divalproex Sodium (Divalproex Extended Release 500 Mg Tab) 1,000 mg PO HS REJI Stop: 02/01/24 21:59 Last Admin: 01/06/24 20:38 Dose: 1,000 mg Gabapentin (Gabapentin 300 Mg Cap) 300 mg PO TID PRN PRN Reason: restlessness Stop: 01/31/24 13:50 Last Admin: 01/06/24 14:19 Dose: 300 mg Hydroxyzine HCl (Hydroxyzine Hcl 25 Mg Tab) 50 mg PO HSZ PRN PRN Reason: Insomnia Stop: 01/31/24 01:13 Magnesium Hydroxide (Magnesium Hydroxide Susp 30 Ml Udc) 30 ml PO DAILY PRN PRN Reason: Constipation Stop: 01/31/24 01:13 Last Admin: 01/02/24 13:29 Dose: 30 ml Miscellaneous (Remove Nicoderm Patch) 1 each N/A DAILY@0859 [facility] Stop: 02/01/24 08:58 Last Admin: 01/07/24 08:43 Dose: Not Given Nicotine (Nicotine 14 Mg/24 Hr Patch) 1 patch TD QAM [facility] Stop: 01/31/24 11:14 Last Admin: 01/07/24 08:40 Dose: 1 patch Nicotine Polacrilex (Nicotine Polacrilex 2 Mg Gum) 1 piece MT Q2H PRN PRN Reason: smoking cessation Stop: 01/31/24 13:46 Last Admin: 01/05/24 20:38 Dose: 1 piece Olanzapine (Olanzapine Zydis 5 Mg Orally Dis. Tab) 5 mg PO BID PRN PRN Reason: Agitation Stop: 02/01/24 20:59 Last Admin: 01/02/24 16:43 Dose: 5 mg Olanzapine (Olanzapine 10 Mg/2.1 Ml Sdv) 5 mg IM BID PRN PRN Reason: Agitation Stop: 02/01/24 20:59 Olanzapine (Olanzapine 10 Mg Tab) 10 mg PO HS REJI Stop: 02/03/24 21:59 Last Admin: 01/06/24 20:39 Dose: 10 mg Propranolol HCl (Propranolol Hcl 10 Mg Tab) 10 mg PO BID REJI Stop: 01/31/24 08:59 Last Admin: 01/07/24 08:40 Dose: 10 mg Sodium Chloride (Sodium Chloride 0.65% Na Soln 45 Ml ([place])) 1 - 2 sprays NA PRN PRN PRN Reason: Nasal Dryness/Congestion Stop: 01/31/24 01:13 Trazodone HCl (Trazodone Hcl 50 Mg Tab) 50 mg PO HS PRN PRN Reason: Insomnia Stop: 02/04/24 21:59 Last Admin: 01/06/24 20:37 Dose: 50 mg Vitamin D (Cholecalciferol 125 Mcg (5,000 Units) Tab) 125 mcg PO QAM REJI Stop: 01/31/24 08:59 Last Admin: 01/07/24 08:40 Dose: 125 mcg Mental Health & Subst Abuse Tx Therapist Name of Therapist: On waiting list at [facility] Environmental Services Coordinator Name of Environmental Services Coordinator: Roni
--- NOTE | 2024-01-08 09:11 | Psychiatric Progress Note ---
Date of Service January 08, 2024 Impression / Recommendations Impression Clary Alaniz is a 28-year-old woman with a history of schizoaffective disorder, bipolar type, methamphetamine use disorder who presents with suicidal ideation with plan to overdose in the context recent methamphetamine abuse, medication non-adherence, restlessness and pacing, decreased need for sleep. Complaints of auditory visual hallucinations. Pt was recently discharged from the hospital on 12/23/23 for a similar presentation and did not follow-up with outpatient care. She was admitted on 01/01/24 00:25 on a 201 voluntary commitment for suicidal ideation. Initial presentation included symptoms of restlessness, hyperactivity, command and auditory hallucinations, responding to internal stimuli, disorganized thought process. Recent decompensation likely due to medication non-adherence in setting of schizoaffective disorder and, methamphetamine intoxication/withdrawal. A: Mood is stable and positive, she continues to deny SI, future-oriented and very motivated for residential substance use treatment. Attending groups. Tolerating her medications well without any side effects, Depakote level reviewed and therapeutic. Psychiatrically stable for residential substance use treatment, but needs to remain in the inpatient setting until a bed is available given high risk of relapse if discharged to wait for a bed in the outpatient setting. Substance use treatment is the most significant modifiable risk factor to reduce her chronic risk of self-harm and to ensure ongoing stability of her mental health and psychiatric symptoms. MNPR due to recent psychosis Overall, I spent a total of 35 minutes with this case including review of chart records, nursing report, review of lab work, direct evaluation of the patient at bedside, counseling the patient, multidisciplinary team meeting, orders, and documentation in the electronic health record. (1) Schizoaffective disorder, bipolar type: (2) Methamphetamine dependence, continuous: (3) Alcohol use disorder, mild, in early remission: (4) Vitamin D deficiency: Plan 01/08/2024: Continue current medications and tx plan. 01/07/2024: Looking into residential substance use disorder facilities, continue with current medications and tx plan. 01/06/2024: Depakote level tomorrow evening 01/05/2024: Will have trazodone available as prn. Continue olanzapine, propranolol, Depakote. Will get repeat Depakote level in 2 days. 01/04/2024: Discontinue clonidine, trazodone and risperidone per her preference to reduce medications and in effort to improve outpatient adherence. Will start olanzapine 10mg HS. Fasting lipid panel and HbA1c tomorrow AM. 01/03/2024: Continue with current medications and tx plan. 01/02/2024: Increase Depakote ER to 1000 mg at bedtime. 01/01/2024:The patient was admitted to the [facility] ([facility] unit) on q15 min checks (behavioral with suicide precautions) for safety. The patient will participate in group, recreational, and milieu therapies and will be offered additional individual and family sessions as clinically appropriate. -Restart psychiatric medications (Risperidone 1mg QAM, 2mg HS; Clonidine 1mg HS; Propranolol 10mg BID; Trazodone 100mg HS; Vit D 5000u daily; Depakote ER 500mg HS; Gabapentin 300mg TID PRN) -Continue Macrobid BID 5 days for UTI Inventory Assets Strengths: family support, willing to get treatment Needs: insight, outpatient connection Suicide Risk Level Suicide Risk Level: Low (q15 min observation checks) (denying SI, mood stable, future-oriented, motivated for substance use treatment ) Risk Factors Assessment Male: No : Yes Do You Have Access To A Gun?: No Health Problems: No Mental Health Diagnoses: Yes Substance Use Disorders: Yes Previous Attempt: Yes Family History of Suicide: No Previous Psychiatric Hospitalization: Yes Hopelessness: No Protective Factors Assessment Yazidism Beliefs: No : No Responsible for Young Children: No Employed: No Stable Relationships: No Supportive Family: No Good Rapport with Provider: Yes Absence of Any Risk Factors Above: No Interval History Identifying Information Clary Alaniz is a unemployed, domiciled with sister 28-year-old white female history of schizoaffective disorder, bipolar type, methamphetamine use disorder who presents with suicidal ideation with plan to overdose in the context recent methamphetamine abuse, medication non-adherence, restleness and pacing, decreased need for sleep. Complaints of auditory visual hallucinations. Pt was recently discharged from the hospital on 12/23/23 for a similar presentation and did not follow-up with outpatient care. She was admitted on 01/01/24 00:25 on a 201 voluntary commitment for suicidal ideation. Chief Complaint "Good". Review of Systems Sleep Information Total Hours of Sleep: 7 Sleep Comments: PRN Trazadone at HS Meal Information Percent Meal Consumed - Breakfast: 100 Percent Meal Consumed - Lunch: 100 Percent Meal Consumed - Dinner: 100 Subjective Subjective Patient was seen & assessed and interval progress reviewed with treatment team nursing and social work. Attending groups, last night rated her mood as "disappointed" due to wait for residential substance use treatment. Pleasant today, very motivated for residential substance use treatment, she's hopeful she can attend soon. Denies SI. Feels her medications are working well, denies any side effects. Her sister is going to visit her tonight and bring some clothes so she'll have items for substance use treatment. She's grateful to have a pair of glasses to use. Reviewed her therapuetic Depakote level. Physical Exam Psychiatric Orientation: alert, oriented x 3 and cooperative Apperance: appropriately dressed and appropriately groomed Eye Contact: good eye contact Motor Behavior: no abnormal motor movements Speech: normal rate/rhythm/volume of speech Affect: euthymic affect Mood: no depressed mood, no anxious mood and no irritable mood Thought Process: goal directed thought process and + concrete thought process Thought Content: reality based without delusions Suicidal Thoughts: denies suicidal thoughts, denies suicidal plan and denies suicidal intent Homicidal Thoughts: denies homicidal thoughts Insight: + fair insight Judgment: + fair judgement Vital Signs (Past 24 Hours) Last Vital Signs Temp 36.3 C L 01/08/24 06:00 Pulse 67 01/08/24 06:00 Resp 16 01/08/24 06:00 BP 110/76 01/08/24 06:00 Pulse Ox 97 01/05/24 06:43 O2 Del Method Room Air 01/05/24 06:43 Results & Data ([facility]) Laboratory Results Laboratory Results - last 24 hr 01/07/24 20:45 Valproic Acid 92 Current Inpatient Medications Current Inpatient Medications: Current Inpatient Medications Acetaminophen (Acetaminophen 325 Mg Tab) 650 mg PO Q4H PRN PRN Reason: Headache or Minor Fever Stop: 01/31/24 01:13 Last Admin: 01/01/24 12:19 Dose: 650 mg Al Hydrox/Mg Hydrox/Simethicone (Aluminum/Magnesium Susp 30 Ml Udc) 30 ml PO Q4H PRN PRN Reason: GI Upset Stop: 01/31/24 01:13 Benztropine Mesylate (Benztropine Mesylate 1 Mg Tab) 1 mg PO BID PRN PRN Reason: EPS Stop: 02/01/24 13:47 Benztropine Mesylate (Benztropine Mesylate 1 Mg/Ml 2 Ml Amp) 1 mg IM BID PRN PRN Reason: EPS Stop: 02/01/24 13:47 Bismuth Subsalicylate (Bismuth Subsalicylate Liqd 236 Ml) 15 ml PO PRN PRN PRN Reason: Loose Stool Stop: 01/31/24 01:13 Divalproex Sodium (Divalproex Extended Release 500 Mg Tab) 1,000 mg PO HS REJI Stop: 02/01/24 21:59 Last Admin: 01/07/24 20:52 Dose: 1,000 mg Gabapentin (Gabapentin 300 Mg Cap) 300 mg PO TID PRN PRN Reason: restlessness Stop: 01/31/24 13:50 Last Admin: 01/07/24 14:28 Dose: 300 mg Hydroxyzine HCl (Hydroxyzine Hcl 25 Mg Tab) 50 mg PO HSZ PRN PRN Reason: Insomnia Stop: 01/31/24 01:13 Magnesium Hydroxide (Magnesium Hydroxide Susp 30 Ml Udc) 30 ml PO DAILY PRN PRN Reason: Constipation Stop: 01/31/24 01:13 Last Admin: 01/02/24 13:29 Dose: 30 ml Miscellaneous (Remove Nicoderm Patch) 1 each N/A DAILY@[id number] [facility] Stop: 02/01/24 08:58 Last Admin: 01/08/24 08:37 Dose: Not Given Nicotine (Nicotine 14 Mg/24 Hr Patch) 1 patch TD QAM [facility] Stop: 01/31/24 11:14 Last Admin: 01/08/24 08:35 Dose: 1 patch Nicotine Polacrilex (Nicotine Polacrilex 2 Mg Gum) 1 piece MT Q2H PRN PRN Reason: smoking cessation Stop: 01/31/24 13:46 Last Admin: 01/07/24 13:08 Dose: 1 piece Olanzapine (Olanzapine Zydis 5 Mg Orally Dis. Tab) 5 mg PO BID PRN PRN Reason: Agitation Stop: 02/01/24 20:59 Last Admin: 01/02/24 16:43 Dose: 5 mg Olanzapine (Olanzapine 10 Mg/2.1 Ml Sdv) 5 mg IM BID PRN PRN Reason: Agitation Stop: 02/01/24 20:59 Olanzapine (Olanzapine 10 Mg Tab) 10 mg PO HS REJI Stop: 02/03/24 21:59 Last Admin: 01/07/24 20:51 Dose: 10 mg Propranolol HCl (Propranolol Hcl 10 Mg Tab) 10 mg PO BID REJI Stop: 01/31/24 08:59 Last Admin: 01/08/24 08:36 Dose: 10 mg Sodium Chloride (Sodium Chloride 0.65% Na Soln 45 Ml ([place])) 1 - 2 sprays NA PRN PRN PRN Reason: Nasal Dryness/Congestion Stop: 01/31/24 01:13 Trazodone HCl (Trazodone Hcl 50 Mg Tab) 50 mg PO HS PRN PRN Reason: Insomnia Stop: 02/04/24 21:59 Last Admin: 01/07/24 20:51 Dose: 50 mg Vitamin D (Cholecalciferol 125 Mcg (5,000 Units) Tab) 125 mcg PO QAM REJI Stop: 01/31/24 08:59 Last Admin: 01/08/24 08:36 Dose: 125 mcg Mental Health & Subst Abuse Tx Therapist Name of Therapist: On waiting list at [facility] Name of Cadet Deck: Roni Post Discharge Appointments Specialist [facility] Phone Number for Specialist: [phone] Specialty Appointment Comment: please call to ask about prescription eye glasses
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
== END 2024-01-09 13:00 | DRG 885 ==
LOC: ED 20:58 → 3S 01-01 00:25 → SUATTDRO 01-01 00:25 → 3S 01-01 00:49
DX: Z87.891 Personal history of nicotine dependence; Z91.148 Patient's other noncompliance with medication regimen for other reason; E55.9 Vitamin D deficiency, unspecified; R45.851 Suicidal ideations; N39.0 Urinary tract infection, site not specified; F15.159 Other stimulant abuse with stimulant-induced psychotic disorder, unspecified; F10.11 Alcohol abuse, in remission; I10 Essential (primary) hypertension; F25.0 Schizoaffective disorder, bipolar type